=== PATIENT | female | born 1965 | race Caucasian/White ===

== ENCOUNTER 2020-02-02 10:43 | Outpatient (REF) | payer MEDICARE, MEDICAID, SELFPAY ==
[2020-02-02 12:11] LABS: Neut%MD 66.4 %; Neutrophils Absolute Auto 5.4 X10*3/uL (2.0-8.3); WBCANC 8.2 X10*3/uL; White Blood Count 8.2 X10*3/uL (4.8-10.8)
[2020-02-02 12:25] LABS: Blood Urea Nitrogen 6 mg/dL (9-16); Estimated Glomerular Filt Rate > 60
[2020-02-02 12:35] LABS: Estimated Average Glucose 171 mg/dL; Hemoglobin A1c % 7.6 %
[2020-02-02 12:47] LABS: Thyroid Stimulating Hormone 1.64 mIU/mL (0.32-4.0)
== END 2020-02-02 10:44 | disposition home or self-care (01) ==
LOC: HO.LABR 10:43
PROVIDERS: PCP Internal Medicine; Visit Provider Clinical Nurse Specialist Psychiatric/Mental Health
DX: Z79.899 Other long term (current) drug therapy (principal)
CPT/HCPCS: 36415; 80178; 82565; 83036; 84443; 84520

== ENCOUNTER 2020-02-28 12:12 | Outpatient (REF) | payer MEDICARE, MEDICAID, SELFPAY ==
[2020-02-28 13:18] LABS: Neut%MD 59.9 %; Neutrophils Absolute Auto 5.5 X10*3/uL (2.0-8.3); White Blood Count 9.1 X10*3/uL (4.8-10.8)
== END 2020-02-28 12:13 | disposition home or self-care (01) ==
LOC: HO.LABR 12:12
PROVIDERS: PCP Internal Medicine; Visit Provider Clinical Nurse Specialist Psychiatric/Mental Health
DX: Z79.899 Other long term (current) drug therapy (principal)
CPT/HCPCS: 36415

== ENCOUNTER 2020-04-22 11:55 | Outpatient (REF) | payer MEDICARE, SELFPAY ==
[2020-04-22 13:16] LABS: Neut%MD 64.5 %; Neutrophils Absolute Auto 6.5 X10*3/uL (2.0-8.3)
== END 2020-04-22 11:56 | disposition home or self-care (01) ==
LOC: HO.LABR 11:55
PROVIDERS: PCP Internal Medicine; Visit Provider Clinical Nurse Specialist Psychiatric/Mental Health
DX: Z79.899 Other long term (current) drug therapy (principal)
CPT/HCPCS: 36415; 85048

== ENCOUNTER 2020-05-28 11:55 | Outpatient (REF) | payer MEDICARE, SELFPAY ==
[2020-05-28 12:48] LABS: Blood Urea Nitrogen 7 mg/dL (9-16); Estimated Glomerular Filt Rate > 60
[2020-05-28 12:50] LABS: Neut%MD 62.5 %; WBCANC 9.6 X10*3/uL; White Blood Count 9.6 X10*3/uL (4.8-10.8)
[2020-05-28 12:55] LABS: Lithium 0.23 mmol/L (0.60-1.20)
[2020-05-28 13:10] LABS: Thyroid Stimulating Hormone 1.77 uIU/mL (0.32-4.0)
[2020-05-28 13:13] LABS: Estimated Average Glucose 197 mg/dL; Hemoglobin A1c % 8.5 %
== END 2020-05-28 11:56 | disposition home or self-care (01) ==
LOC: HO.LABR 11:55
PROVIDERS: PCP Internal Medicine; Visit Provider Clinical Nurse Specialist Psychiatric/Mental Health
DX: Z79.899 Other long term (current) drug therapy (principal)
CPT/HCPCS: 36415; 80178; 82565; 83036; 84443; 84520; 85048

== ENCOUNTER 2020-07-05 12:26 | Outpatient (REF) | payer MEDICARE, SELFPAY ==
[2020-07-05 13:22] LABS: Neutrophils Absolute Auto 5.7 X10*3/uL (2.0-8.3); WBCANC 9.4 X10*3/uL; White Blood Count 9.4 X10*3/uL (4.8-10.8)
== END 2020-07-05 12:27 | disposition home or self-care (01) ==
LOC: HO.LABR 12:26
PROVIDERS: PCP Internal Medicine; Visit Provider Clinical Nurse Specialist Psychiatric/Mental Health
DX: Z79.899 Other long term (current) drug therapy (principal)
CPT/HCPCS: 36415; 85048

== ENCOUNTER 2020-07-31 12:57 | Outpatient (REF) | payer MEDICARE, SELFPAY ==
[2020-07-31 13:36] LABS: Neut%MD 63.1 %; Neutrophils Absolute Auto 6.1 X10*3/uL (2.0-8.3); WBCANC 9.7 X10*3/uL; White Blood Count 9.7 X10*3/uL (4.8-10.8)
== END 2020-07-31 12:58 | disposition home or self-care (01) ==
LOC: HO.LABR 12:57
PROVIDERS: PCP Internal Medicine; Visit Provider Clinical Nurse Specialist Psychiatric/Mental Health
DX: Z79.899 Other long term (current) drug therapy (principal)
CPT/HCPCS: 36415; 85048

== ENCOUNTER 2020-11-06 13:52 | Outpatient (REF) | payer MEDICARE, SELFPAY ==
[2020-11-09 18:56] LABS: TS Negative Control Passed; TS Panel A 0; TS Panel B 1; TS Positive Control Passed; TSpotTB Negative (SeeBelow)
== END 2020-11-06 13:53 | disposition home or self-care (01) ==
LOC: HO.LAB 13:52
PROVIDERS: PCP Internal Medicine; Visit Provider Internal Medicine
DX: Z11.1 Encounter for screening for respiratory tuberculosis (principal)
CPT/HCPCS: 36415; 86481

== ENCOUNTER 2020-11-22 02:04 | Inpatient (IN) | payer MEDICARE, MEDICAID, SELFPAY ==
[2020-11-22] VITALS (7 sets, daily range): BP systolic 148–205; BP diastolic 68–91; PULSE 64–102; RESP 16–18; TEMP 36.4–37.1; O2SAT 95–99; BMI 34.4
--- NOTE | 2020-11-22 | ECG_ITS ---
Test Reason : CHECK CARDIAC HISTOR Blood Pressure : / mmHG Vent. Rate : 071 BPM Atrial Rate : 071 BPM P-R Int : 156 ms QRS Dur : 076 ms QT Int : 398 ms P-R-T Axes : 038 -07 017 degrees QTc Int : 432 ms Normal sinus rhythm Normal ECG When compared with ECG of 27-JUN-2012 22:00, Nonspecific T wave abnormality no longer evident in Anterolateral leads Referred By: Pao Ramirez Electronically Signed By:MARGAUX MARTINEZ
--- NOTE | 2020-11-22 02:58 | ED.PSYCH ---
HPI - Psych General Chief Complaint: Psychiatric Symptoms Stated Complaint: psych Time Seen by Provider: 11/22/20 02:58 Source: patient and other Mode of arrival: ambulatory History of Present Illness HPI Narrative: This is a 55-year-old female who is brought in by her sister after behavioral clinician called reported the patient was assessed in the community and found that the patient was paranoid delusional secondary to being off of her medication. Patient states that she does not feel right, but denies feeling suicidal or homicidal. Otherwise, patient denies any fever, chills, shortness of breath or chest pain. Related Data Home Medications Medication Instructions Recorded Confirmed lisinopril 10 mg tablet 1 tab PO QAM 11/22/20 11/22/20 olanzapine 5 mg tablet 1 tab PO BEDTIME 11/22/20 11/22/20 Allergies Allergy/AdvReac Type Severity Reaction Status Date / Time No Known Allergies Allergy Unverified 01/11/20 16:04 [No Known Allergies*] Review of Systems Review of Systems: Pertinent positives and negatives as stated in HPI 10 point review systems otherwise negative. [facility] Past Medical History Source: nursing notes reviewed Social History Social History Advance Directives: No Patient : No Physical Exam Vital Signs: Vital Signs: Last Vital Signs Temp 98.8 F 11/22/20 02:14 Pulse 102 H 11/22/20 02:14 Resp 18 11/22/20 02:14 BP 150/89 H 11/22/20 02:14 Pulse Ox 97 11/22/20 02:14 Body Mass Index 34.4 VITAL SIGNS: Reviewed. GENERAL: Well developed, well nourished, in no acute distress. HEAD: Normocephalic/atraumatic EYES: PERRLA, EOMI OROPHARYNX: no oral lesions noted, posterior pharynx clear LUNGS: Normal breath sounds. No adventitious sounds or accessory muscle use. SpO2<97> CARDIOVASCULAR: Regular rate and rhythm without noted murmurs ABDOMEN: Soft, non-tender, non-distended with bowel sounds. SKIN: Inspection of the skin reveals no rashes NEUROLOGIC: Alert and oriented x 4. Strength and sensation to light touch were grossly intact x 4. PSYCH: Depressed affect Course Course Course Narrative: 55-year-old female with history and clinical presentation on review of collateral information provided by the sister who states that patient's mental status changed after recent medication change by her psychiatrist. The sister of the patient does not recall the new medication but knows that they discontinued lithium and Clozaril. On review of all investigations patient is noted to have a UTI and received initial antibiotics here in the emergency room is otherwise medically cleared for further evaluation by the behavioral team. Reevaluation(s) Reevaluation #1: Patient placed in physician observation because the patient needed more time for evaluation by the behavioral team. At the time observation was started the patient's vital signs were stable, patient is alert and oriented, neuro: Nonfocal, CV RRR, lungs clear Time: 04:34 MDM - Psych Lab Data Result diagrams: 11/22/20 03:15 11/22/20 03:15 Labs: Lab Results 11/22/20 11/22/20 11/22/20 Range/Units 02:42 02:42 02:42 WBC (4.8-10.8) X10*3/uL RBC (4.20-5.50) X10*6/uL Hgb (12.0-16.0) g/dl Hct (37-47) % MCV (80-98) fL MCH (27.0-33.0) pg MCHC (31.0-35.0) g/dl RDW (11.0-16.0) % Plt Count (160-400) X10*3/uL MPV (9.4-12.3) fL Immature Gran % (Auto) (0.0-0.4) % Neut % (Auto) (45-73) % Lymph % (Auto) (20-40) % [place] % (Auto) (2-11) % Eos % (Auto) (0-4) % Baso % (Auto) (0-2) % Lymph # (Auto) (1.2-4.9) X10*3/uL [place] # (Auto) (0.1-1.2) X10*3/uL Eos # (Auto) (0.0-0.4) X10*3/uL Baso # (Auto) (0.0-0.2) X10*3/uL Abs Immat Gran (auto) (0.00-0.03) X10*3/uL Absolute Neuts (auto) (2.0-8.3) X10*3/uL Absolute Nucleated RBC (0.0-0.012) X10*3/uL Nucleated RBC % (auto) (0.0-0.2) /100WBC Sodium (135-145) mmol/L Potassium (3.3-5.1) mmol/L Chloride (96-108) mmol/L Carbon Dioxide (22-29) mmol/L Anion Gap (12-20) BUN (9-16) mg/dL Creatinine (0.5-1.4) mg/dL Estim Creat Clear Calc Estimated GFR Random Glucose (60-115) mg/dL Calcium (8.4-10.2) mg/dL Urine Color STRAW Urine Appearance HAZY Urine pH 5.5 (5.0-8.0) Ur Specific [place] <= 1.005 (1.005-1.025) Urine Protein TRACE (NEG-TRACE) MG/DL Urine Glucose (UA) 500 H (NEG) MG/DL Urine Ketones 40 (NEG) MG/DL Urine Blood NEG (NEG) Urine Nitrite NEG (NEG) Ur Leukocyte Esterase 2+ H (NEG) Urine RBC 0 (0) /HPF Urine WBC 5-9 H (0-4) /HPF Urine WBC Clumps NOTED Ur Squamous Epith Cells 3+ /LPF Urine Bacteria TRACE /LPF Urine Mucus TRACE /LPF Urine Opiates Screen Not Detected (Not Detect) Ur Barbiturates Screen Not Detected (Not Detect) Ur Phencyclidine Scrn Not Detected (Not Detect) Ur Amphetamines Screen Not Detected (Not Detect) U Benzodiazepines Scrn Not Detected (Not Detect) [place] (0.60-1.20) mmol/L Urine Cocaine Screen Not Detected (Not Detect) U Marijuana (THC) Screen Not Detected (Not Detect) COVID-19 (MY) Negative (Negative) COVID-19 Clin Com See Note 11/22/20 11/22/20 11/22/20 Range/Units 03:15 03:15 03:15 WBC 11.4 H (4.8-10.8) X10*3/uL RBC 4.78 (4.20-5.50) X10*6/uL Hgb 12.8 (12.0-16.0) g/dl Hct 39.8 (37-47) % MCV 83.3 (80-98) fL MCH 26.8 L (27.0-33.0) pg MCHC 32.2 (31.0-35.0) g/dl RDW 13.5 (11.0-16.0) % Plt Count 298 (160-400) X10*3/uL MPV 9.5 (9.4-12.3) fL Immature Gran % (Auto) 0.5 H (0.0-0.4) % Neut % (Auto) 81.4 H (45-73) % Lymph % (Auto) 13.6 L (20-40) % [place] % (Auto) 3.9 (2-11) % Eos % (Auto) 0.3 (0-4) % Baso % (Auto) 0.3 (0-2) % Lymph # (Auto) 1.6 (1.2-4.9) X10*3/uL [place] # (Auto) 0.5 (0.1-1.2) X10*3/uL Eos # (Auto) 0.0 (0.0-0.4) X10*3/uL Baso # (Auto) 0.0 (0.0-0.2) X10*3/uL Abs Immat Gran (auto) 0.06 H (0.00-0.03) X10*3/uL Absolute Neuts (auto) 9.3 H (2.0-8.3) X10*3/uL Absolute Nucleated RBC 0.000 (0.0-0.012) X10*3/uL Nucleated RBC % (auto) 0.0 (0.0-0.2) /100WBC Sodium 139 (135-145) mmol/L Potassium 4.3 (3.3-5.1) mmol/L Chloride 106 (96-108) mmol/L Carbon Dioxide 22 (22-29) mmol/L Anion Gap 15 (12-20) BUN 5 L (9-16) mg/dL Creatinine 0.76 (0.5-1.4) mg/dL Estim Creat Clear Calc 102.7 Estimated GFR > 60 Random Glucose 280 H (60-115) mg/dL Calcium 10.0 (8.4-10.2) mg/dL Urine Color Urine Appearance Urine pH (5.0-8.0) Ur Specific [place] (1.005-1.025) Urine Protein (NEG-TRACE) MG/DL Urine Glucose (UA) (NEG) MG/DL Urine Ketones (NEG) MG/DL Urine Blood (NEG) Urine Nitrite (NEG) Ur Leukocyte Esterase (NEG) Urine RBC (0) /HPF Urine WBC (0-4) /HPF Urine WBC Clumps Ur Squamous Epith Cells /LPF Urine Bacteria /LPF Urine Mucus /LPF Urine Opiates Screen (Not Detect) Ur Barbiturates Screen (Not Detect) Ur Phencyclidine Scrn (Not Detect) Ur Amphetamines Screen (Not Detect) U Benzodiazepines Scrn (Not Detect) [place] < 0.10 L (0.60-1.20) mmol/L Urine Cocaine Screen (Not Detect) U Marijuana (THC) Screen (Not Detect) COVID-19 (YM) (Negative) COVID-19 Clin Com Discharge Plan Discharge Prescriptions: No Action olanzapine 5 mg tablet 1 tab PO BEDTIME RF: 0 lisinopril 10 mg tablet 1 tab PO QAM RF: 0
[2020-11-22 03:11] LABS: Glucose Urine UA 500 MG/DL (NEG); Leukocyte Esterase Urine 2+ (NEG); Nitrite Urine NEG (NEG); PH 5.5 (5.0-8.0); Specific Gravity - Urine <= 1.005 (1.005-1.025); UACC Culture Trigger YES; Urine Blood NEG (NEG); Urine Ketones 40 MG/DL (NEG); Urine Protein TRACE MG/DL (NEG-TRACE)
[2020-11-22 03:14] LABS: Appearance Urine HAZY; Color Urine STRAW
[2020-11-22 03:19] LABS: MANUAL DIFF FLAG NO
[2020-11-22 03:24] LABS: COVID-19 Test Negative (Negative)
[2020-11-22 03:25] LABS: Bacteria Urine TRACE /LPF; Mucus Urine TRACE /LPF; RBC Urine 0 /HPF (0); Squamous Epithelial Cell Urine 3+ /LPF; UACC CULT YES; WBC Clumps Urine NOTED
[2020-11-22 03:28] LABS: Basophils Percent Auto 0.3 % (0-2); Eosinophils Percent Auto 0.3 % (0-4); Hematocrit 39.8 % (37-47); Hemoglobin 12.8 g/dl (12.0-16.0); Imm Gran Abs Auto 0.06 X10*3/uL (0.00-0.03); Imm Gran Pct Auto 0.5 % (0.0-0.4); Lymphocytes Absolute Auto 1.6 X10*3/uL (1.2-4.9); Lymphocytes Percent Auto 13.6 % (20-40); Mean Corpuscular HGB Conc 32.2 g/dl (31.0-35.0); Mean Corpuscular Hemoglobin 26.8 pg (27.0-33.0); Mean Corpuscular Volume 83.3 fL (80-98); Mean Platelet Volume 9.5 fL (9.4-12.3); Monocytes Absolute Auto 0.5 X10*3/uL (0.1-1.2); Monocytes Percent Auto 3.9 % (2-11); Neutrophils Absolute Auto 9.3 X10*3/uL (2.0-8.3); Neutrophils Percent Auto 81.4 % (45-73); Platelet Count 298 X10*3/uL (160-400); Red Blood Count 4.78 X10*6/uL (4.20-5.50); Red Cell Distribution Width 13.5 % (11.0-16.0); White Blood Count 11.4 X10*3/uL (4.8-10.8)
[2020-11-22 03:31] LABS: Amphetamine Screen Urine Not Detected (Not Detect); Barbiturates, Urine Not Detected (Not Detect); Benzodiazepines Screen Urine Not Detected (Not Detect); Cannabinoid Screen Urine Not Detected (Not Detect); Cocaine Screen Urine Not Detected (Not Detect); Opiate Screen Urine Not Detected (Not Detect); Phencyclidine Screen Urine Not Detected (Not Detect)
[2020-11-22 03:41] LABS: Lithium < 0.10 mmol/L (0.60-1.20)
[2020-11-22 03:45] LABS: Anion Gap 15 (12-20); Blood Urea Nitrogen 5 mg/dL (9-16); Carbon Dioxide 22 mmol/L (22-29); Chloride 106 mmol/L (96-108); Creatinine Clr Calc Pharmacy 102.7; Estimated Glomerular Filt Rate > 60; Glucose Random 280 mg/dL (60-115); Potassium 4.3 mmol/L (3.3-5.1); Sodium 139 mmol/L (135-145)
[2020-11-22] MEDS: LORazepam 1 MG TABLET PO (05:22)
[2020-11-22] MEDS: cephALEXin 500 MG CAPSULE PO (05:25)
--- NOTE | 2020-11-22 05:30 | PC.NURSE ---
Patient reported she is feeling scared and restless, agreed to take take Ativan to calm her tracing thought, provider notified/ordered Ativan 1 mg, administered with Keflex, patient very suspicious wanted to her medication opened in front of her, slowly and suspiciously took her medication, pending medication effect, will continue to monitor.
--- NOTE | 2020-11-22 07:01 | PC.NURSE ---
patient appears to be resting in room nibbling on breakfast small amounts patient appears in no distress.
[2020-11-22 09:52] LABS: Estimated Average Glucose 237 mg/dL; Hemoglobin A1c % 9.9 %
--- NOTE | 2020-11-22 13:51 | PM.PSYCN ---
History of Present Illness Date of Service: 11/22/20 Chief Complaint: I could not sleep Reason for Consult: 55 yo female to ER with family after being unable to sleep for a few nights she reports. Hx bipolar disorder, mixed; schizoaffective disorder, bipolar type. and HTN. [place] [facility] Pt states she has been on Clozaril /Lafitte combination for over 20 years. She stopped Lafitte about 4 months ago (hx 600 mg HS) and stopped Clozaril 2-3 weeks ago, replacing this with Olanzapine. Reports she has been somewhat hypersensitive to sounds, they say paranoid and reports has had increasing difficulty with her sleep, losing hours progressively. Last evening pt's partner informed her sister of symptoms and sister assisted pt to the ER for evaluation. Pt had taken HS Olanzapine prior to ER visit. She reports 3 hours sleep 11/20- and 6 hours sleep with Lorazepam addition last night. Reports the decision to change medicine was due to the labor intensity of having labs, level managment and I wanted something that was simple for me so it would not interfere with my life. 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 Pt looking to have more time in her life for activity and family. Discussed titration of Olanzapine vs return to Clozaril. Pt reports she prefers to return to Clozaril and make adjustments to continue diagnostics and meet requirements to continue medication which has worked in the past. Reviewed with CARE Team-pt has been seen by [facility] and is pending [place] [facility] [place] eval is not accessable at the current time. Requesting physician: Hanna Moura Discussed with referring provider: No Sources of Information: patient interviewed, chart reviewed and crisis/core team assessment reviewed (not available) HPI Narrative: Pt reports a history of the use of Lafitte and Clozaril for ~ 20 years Past Psychiatric History: IP: Three admits- 10 years ago [place] [facility] [place] [place] 20 years ago to a few hospitals in [place] (was transferred a few times) OP Psychopharm: Dieter López APRN Medical Evaluation Reviewed: Yes WBC 11.4; BUN 5; Random Glucose 280; Urine Glucose 500; Leuk Esterase 2+, Urine WBC 5-9, [place] 0.10, Urine Tox-, Covid - Personal & Social History: Lives with partner. One son, , age 33, who was a Marine- pt sees the couple approximately every two months [facility] Medical History (Updated 11/22/20 @ 14:25 by Cely Fowler APRN) Schizoaffective disorder, bipolar type Narrative: Denies. Reports she has been attempting to lose weight. Substance History: Nicotine 1-2 cigarettes per week- It helps me to relax . Diagnostics Vital Signs (24Hr): Vital Signs - 24 hr 11/22/20 02:14 11/22/20 11:39 Temperature 98.8 F 97.5 F Pulse Rate 102 H 68 Respiratory Rate 18 16 Blood Pressure 150/89 H 148/68 H Pulse Oximetry 97 95 Body Mass Index 34.4 Labs Results: 11/22/20 03:15 11/22/20 03:15 Labs: Laboratory Results - last 48 hr 11/22/20 11/22/20 11/22/20 02:42 02:42 02:42 WBC RBC Hgb Hct MCV MCH MCHC RDW Plt Count MPV Immature Gran % (Auto) Neut % (Auto) Lymph % (Auto) [place] % (Auto) Eos % (Auto) Baso % (Auto) Lymph # (Auto) [place] # (Auto) Eos # (Auto) Baso # (Auto) Abs Immat Gran (auto) Absolute Neuts (auto) Absolute Nucleated RBC Nucleated RBC % (auto) Sodium Potassium Chloride Carbon Dioxide Anion Gap BUN Creatinine Estim Creat Clear Calc Estimated GFR Random Glucose Estimat Average Glucose Hemoglobin A1c % Calcium Urine Color STRAW Urine Appearance HAZY Urine pH 5.5 Ur Specific [place] <= 1.005 Urine Protein TRACE Urine Glucose (UA) 500 H Urine Ketones 40 Urine Blood NEG Urine Nitrite NEG Ur Leukocyte Esterase 2+ H Urine RBC 0 Urine WBC 5-9 H Urine WBC Clumps NOTED Ur Squamous Epith Cells 3+ Urine Bacteria TRACE Urine Mucus TRACE Urine Opiates Screen Not Detected Ur Barbiturates Screen Not Detected Ur Phencyclidine Scrn Not Detected Ur Amphetamines Screen Not Detected U Benzodiazepines Scrn Not Detected [place] Urine Cocaine Screen Not Detected U Marijuana (THC) Screen Not Detected COVID-19 (MY) Negative COVID-19 Clin Com See Note 11/22/20 11/22/20 11/22/20 03:15 03:15 03:15 WBC 11.4 H RBC 4.78 Hgb 12.8 Hct 39.8 MCV 83.3 MCH 26.8 L MCHC 32.2 RDW 13.5 Plt Count 298 MPV 9.5 Immature Gran % (Auto) 0.5 H Neut % (Auto) 81.4 H Lymph % (Auto) 13.6 L [place] % (Auto) 3.9 Eos % (Auto) 0.3 Baso % (Auto) 0.3 Lymph # (Auto) 1.6 [place] # (Auto) 0.5 Eos # (Auto) 0.0 Baso # (Auto) 0.0 Abs Immat Gran (auto) 0.06 H Absolute Neuts (auto) 9.3 H Absolute Nucleated RBC 0.000 Nucleated RBC % (auto) 0.0 Sodium 139 Potassium 4.3 Chloride 106 Carbon Dioxide 22 Anion Gap 15 BUN 5 L Creatinine 0.76 Estim Creat Clear Calc 102.7 Estimated GFR > 60 Random Glucose 280 H Estimat Average Glucose Hemoglobin A1c % Calcium 10.0 Urine Color Urine Appearance Urine pH Ur Specific [place] Urine Protein Urine Glucose (UA) Urine Ketones Urine Blood Urine Nitrite Ur Leukocyte Esterase Urine RBC Urine WBC Urine WBC Clumps Ur Squamous Epith Cells Urine Bacteria Urine Mucus Urine Opiates Screen Ur Barbiturates Screen Ur Phencyclidine Scrn Ur Amphetamines Screen U Benzodiazepines Scrn [place] < 0.10 L Urine Cocaine Screen U Marijuana (THC) Screen COVID-19 (MY) COVID-19 Clin Com 11/22/20 03:15 WBC RBC Hgb Hct MCV MCH MCHC RDW Plt Count MPV Immature Gran % (Auto) Neut % (Auto) Lymph % (Auto) [place] % (Auto) Eos % (Auto) Baso % (Auto) Lymph # (Auto) [place] # (Auto) Eos # (Auto) Baso # (Auto) Abs Immat Gran (auto) Absolute Neuts (auto) Absolute Nucleated RBC Nucleated RBC % (auto) Sodium Potassium Chloride Carbon Dioxide Anion Gap BUN Creatinine Estim Creat Clear Calc Estimated GFR Random Glucose Estimat Average Glucose 237 Hemoglobin A1c % 9.9 Calcium Urine Color Urine Appearance Urine pH Ur Specific [place] Urine Protein Urine Glucose (UA) Urine Ketones Urine Blood Urine Nitrite Ur Leukocyte Esterase Urine RBC Urine WBC Urine WBC Clumps Ur Squamous Epith Cells Urine Bacteria Urine Mucus Urine Opiates Screen Ur Barbiturates Screen Ur Phencyclidine Scrn Ur Amphetamines Screen U Benzodiazepines Scrn [place] Urine Cocaine Screen U Marijuana (THC) Screen COVID-19 (MY) COVID-19 Clin Com Mental Status Exam Mental Status Exam Patient Appearance: Appropriate Patient Orientation: Person, Place, Time and Situation Level of Consciousness: Alert Patient Behavior: Appropriate, Talkative, Cooperative and Good Eye Contact Mood Description: Withdrawn, Depressed, Anxious and Apprehensive Affect Description: Flat Patient Cognition Impaired: No Ability to Follow Directions: Good Speech Pattern: Spontaneous Speech Memory Description: Intact Hallucinations: None (denies) Delusions: Not Present (denies/no evidence of during our meeting) Thought Process: Distracted Thought Content: positive for [place]ila, positive for Circumstantial, positive for Tangential, positive for Suicidal Ideation (denies) and positive for Homicidal Ideation (denies) Depressive Symptoms: Insomnia, Diff. Making Decisions, Difficulty Sleeping, Hopelessness, Isolating-Friends/Family, Thoughts of /Suicide (denies) and Difficulty Concentrating Judgement: Fair Medications Medications Current Medications Generic Name Dose Route Start Last Admin Trade Name Freq PRN Reason Stop Dose Admin Acetaminophen 650 mg 11/22/20 12:41 Acetaminophen 325 Mg Tablet PO Q6H PRN Headache/Pain Mild Scale (1-3) Al Hydroxide/Mg Hydroxide 30 ml 11/22/20 12:41 Magnesium Hydrox/Alum Hydrox 30 Ml Oral.Susp PO Q6H PRN Heartburn/Nausea Hydroxyzine HCl 25 mg 11/22/20 12:41 Hydroxyzine Hcl 25 Mg Tablet PO Q6H PRN Anxiety Magnesium Hydroxide 30 ml 11/22/20 12:41 Milk Of Magnesia 30 Ml Oral.Susp PO DAILY PRN Constipation Trazodone HCl 50 mg 11/22/20 12:41 Trazodone Hcl 50 Mg Tablet PO BEDTIME PRN Insomnia Allergies Allergies Allergy/AdvReac Type Severity Reaction Status Date / Time No Known Allergies Allergy Unverified 01/11/20 16:04 [No Known Allergies*] Assessment & Plan Assessment & Plan (1) Schizoaffective disorder, bipolar type: Status: Acute Code(s): F25.0 - Schizoaffective disorder, bipolar type Recommendations: -Pt is pending admission to . -In discussion with her about medications, she spoke of wanting to return to [facility] as she would rather take time to have required diagnostics for appropriate use of this medication vs symptoms she has experienced since changes were made. Recommendations[place] [facility] [place]. Greater than 50% of the session was spent on counseling and/or coordination of care Patient educated on: medication risk/benefits and therapeutic strategies Guardian/Caregiver educated on: medication risk/benefits and therapeutic strategies Informed Consent: understands and further education needed
--- NOTE | 2020-11-22 15:44 | PC.NURSE ---
Admission Note 55 y/o sylvia admitted from [facility] after her sister reported her as paranoid, delusional and not sleeping. Precipitant is pt had stopped her meds 5 days ago cold turkey Pt reports she has been on Clozaril for 20 years and I got tired of coming to the hospital for bloodwork. Pt is cooperative with admission process but very hesitant and paranoid. Pt denies any SI/HI and has no history of restraints/violence. Pt has outpatient psychiatrist, therapist and has not had an inpatient admission for 10 years.
[2020-11-22] MEDS: OLANZapine 5 MG TABLET PO ×2 (16:05→22:05)
--- NOTE | 2020-11-22 16:29 | MHC.CLN ---
NUTRITION/DIET RD RECOMMENDS DIET CHANGE TO DIABETIC 1800 KCAL (25.4 KCAL/KG CMW). 11/22 A1c=9.9; RANDOM [id number]. PATIENT HAS ORDER FOR POC GLUCOSE CHECKS. DOES NOT TAKE DM MEDICATIONS. THERAPEUTIC DIET TO HELP CONTROL BLOOD SUGARS.
--- NOTE | 2020-11-22 22:36 | PC.NURSE ---
refused HS POC
[2020-11-23 08:00] VITALS: BP 185/88; PULSE 78; RESP 18; TEMP 36.7; O2SAT 97
[2020-11-23 08:23] VITALS: BP 185/88; PULSE 78
[2020-11-23 10:24] LABS: Glucose, Whole Blood 255 mg/dL (60-115)
[2020-11-23 15:14] VITALS: BP 138/73; PULSE 72
[2020-11-23 18:00] VITALS: TEMP 36.7
[2020-11-23] MEDS: cloZAPine 25 MG TABLET 12.5 MG PO (20:38)
--- NOTE | 2020-11-23 21:28 | CONS_ITS ---
DATE OF SERVICE: 11/23/2020 CONSULTING PHYSICIAN: Cely Damico APRN REASON FOR CONSULTATION: Medical management for diabetes, hypertension, and possible UTI. HISTORY OF PRESENTING ILLNESS: This is a 55-year-old female patient with past medical history of bipolar disorder, schizoaffective disorder, and hypertension, previously on Clozaril and lithium. Patient has stopped taking her medications several weeks ago and was brought into [facility] due to increasing difficulty with sleep and difficulty coping at home; therefore, patient admitted to psych facility. The patient was noted to have elevated blood pressure as high as up to systolic BP 205/88. She was also noted to have blood sugars in 200 range with a hemoglobin A1c of 9.9. Her urinalysis was positive for rbc, 5 to 9 wbc count, and trace bacteria. Urine culture is positive for greater than 100,000 Staph species. At the present time, the patient is not providing any meaningful history. She keeps saying that nobody is letting her out of this place. She feels that the system is wrong, someone who invented world will take over and the world will change. She feels that it was hard for her to come here since she was feeling bad, she was not sleeping well. She wants to go home, but when she is directable, she says that she has no nausea, no vomiting. She denies urinary symptoms. She is not aware of the diagnosis of diabetes. She denies excessive thirst, polyuria, or abdominal pain. PAST MEDICAL HISTORY: Significant for schizoaffective disorder/bipolar disorder/hypertension. SOCIAL HISTORY: The patient smokes 1 to 2 cigarettes per week since she feels it helps her to relax. She denies illicit drug use. She denies alcohol abuse. 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 ALLERGIES: SHE HAS NO KNOWN DRUG ALLERGIES. MEDICATIONS: At home were lisinopril 1 tablet daily, olanzapine 1 tablet at bedtime. FAMILY HISTORY: Her mother at 69, question related to some viral illness. Father at age 76, he did not feel good. REVIEW OF SYSTEMS: APPLICATION INTEGRATION SPECIALIST: denies any headache or dizziness. CVS: denies chest pain or palpitation. GI: denies nausea or vomiting . : denies urinary symptoms. LABORATORY DATA: Showed a hemoglobin A1c of 9.9. WBC 11.4, hematocrit 39.8, platelet count of 298. Urine toxicology screen is negative. [place] level is low 0.10. Her electrolytes are stable, creatinine is 0.76, blood sugar 255, average estimated glucose is 237, calcium is 10. IMAGING STUDIES: None obtained. EKG showed no ischemic changes. No acute abnormality. PHYSICAL EXAMINATION: GENERAL: The patient is resting comfortably, sitting on a chair. NECK: Supple. LUNGS: Clear to auscultation bilaterally. HEART: Regular rate and rhythm. ABDOMEN: Soft. EXTREMITIES: Without edema. NEUROLOGIC: Nonfocal. She has a steady gait. Face is symmetrical. Cranial nerves II to XII intact. ASSESSMENT AND PLAN: A 55-year-old female patient admitted to psychiatric facility with underlying history of schizoaffective disorder and bipolar disorder. Consult is obtained for management of hypertension, diabetes, and possible urinary tract infection. PROBLEM LIST: 1. New onset diabetes mellitus. The patient is not aware that she is a diabetic. She is not on oral hypoglycemic agents. Since the patient has significantly elevated hemoglobin A1c and has elevated average blood glucose level in 200, we will place the patient on metformin, glipizide 5 mg daily, and place her on insulin sliding scale and diabetic diet. Once the patient is more stabilized, she can have a nutrition consultation. We will check point of care blood sugar q.i.d. 2. Hypertension, uncontrolled. The patient is on lisinopril 10 mg daily. We will increase dose to 20 mg daily. If blood pressure persistently remained elevated, we will further adjust medications. Likely elevated BP due to anxiety. 3. Possible urinary tract infection. The patient's urinalysis shows only trace bacteria and 5 to 9 wbc's. The patient is asymptomatic. We will await final urine culture report. Meanwhile, we will continue Keflex 500 t.i.d. and follow clinical course. 4. Deep vein thrombosis prophylaxis. Low risk since patient is ambulatory. Thank you for allowing us to participate in the care of this patient. We will continue to follow the patient along with you. MD ALFONZO Doe/MEY / [id number] MTDD
--- NOTE | 2020-11-23 22:55 | P.HPPS_ITS ---
HPI Chief Complaint: I could not sleep Sources of Information: patient interviewed, chart reviewed and crisis/core team assessment reviewed HPI Subjective Notes: Conditional Voluntary Medical Problems Affecting Mental Status: No Narrative: Sources of Information: patient interviewed, chart reviewed, discussed with team on -3 Information for admission is pulled from the psychiatry consult that was done yesterday. This was reviewed. History confirmed after speaking with the patient. Patient is a 55 yo female to ER with family after being unable to sleep for a few nights she reports. Hx bipolar disorder, mixed; schizoaffective disorder, bipolar type. and HTN. Similiar presentation at [facility] in 2011 and 2012. Pt states she has been on Clozaril /Monon combination for over 20 years. She stopped Monon about 4 months ago (hx 600 mg HS) and stopped Clozaril 2-3 weeks ago, replacing this with Olanzapine. Patient reported to the psychiatry communication consultant that she has been somewhat hypersensitive to sounds, they say paranoid and reports has had increasing difficulty with her sleep, losing hours progressively. On 11/21/20 the pt's p artner informed her sister of symptoms and sister assisted pt to the ER for evaluation. Pt had taken HS Olanzapine prior to ER visit. She reports 3 hours sleep 11/20- and 6 hours sleep with Lorazepam addition last night. Reports the decision to change medicine was due to the labor intensity of having labs, level managment and I wanted something that was simple for me so it would not interfere with my life. 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 Pt looking to have more time in her life for activity and family. Pt reports she prefers to return to Clozaril and make adjustments to continue diagnostics and meet requi rements to continue medication which has worked in the past. Narrative: Pt reports a history of the use of Monon and Clozaril for ~ 20 years Past Psychiatric History: IP: Three admits- 10 years ago to [facility]; 20 years ago to a few hospitals in [place] (was transferred a few times) OP Psychopharm: Dieter López APRN Medical Evaluation Reviewed: Yes WBC 11.4; BUN 5; Random Glucose 280; Urine Glucose 500; Leuk Esterase 2+, Urine WBC 5-9, Monon 0.10, Urine Tox-, Covid - Personal & Social History: Lives with partner. One son, , age 33, who was a Marine- pt sees the couple approximately every two months [facility] Medical History?(Updated 11/22/20 @ 14:25 by Cely Fowler APRN) Schizoaffective disorder, bipolar type Narrative: Denies. Reports she has been attempting to lose weight. Substance History: Nicotine 1-2 cigarettes per week- It helps me to relax . Past Psychiatric History: IP: Three admits- 10 years ago to [facility]; 20 years ago to a few hospitals in [place] (was transferred a few times) OP Psychopharm: Dieter López APRN Medical Evaluation Reviewed: Yes [facility] Medical History (Updated 11/22/20 @ 14:25 by Cely Fowler APRN) Schizoaffective disorder, bipolar type Diagnostics Vital Signs (24Hr): Vital Signs - 24 hr 11/23/20 08:00 11/23/20 08:23 11/23/20 15:14 Temperature 98.0 F Pulse Rate 78 78 72 Respiratory Rate 18 Blood Pressure 185/88 H 185/88 H 138/73 Pulse Oximetry 97 11/23/20 18:00 Temperature 98.0 F Pulse Rate Respiratory Rate Blood Pressure Pulse Oximetry Body Mass Index 34.4 Labs Results: 11/22/20 03:15 11/22/20 03:15 Labs: Laboratory Results - last 48 hr 11/22/20 11/22/20 11/22/20 02:42 02:42 02:42 WBC RBC Hgb Hct MCV MCH MCHC RDW Plt Count MPV Immature Gran % (Auto) Neut % (Auto) Lymph % (Auto) Treasure % (Auto) Eos % (Auto) Baso % (Auto) Lymph # (Auto) [place] # (Auto) Eos # (Auto) Baso # (Auto) Abs Immat Gran (auto) Absolute Neuts (auto) Absolute Nucleated RBC Nucleated RBC % (auto) Sodium Potassium Chloride Carbon Dioxide Anion Gap BUN Creatinine Estim Creat Clear Calc Estimated GFR POC Glucose Random Glucose Estimat Average Glucose Hemoglobin A1c % Calcium Urine Color STRAW Urine Appearance HAZY Urine pH 5.5 Ur Specific [place] <= 1.005 Urine Protein TRACE Urine Glucose (UA) 500 H Urine Ketones 40 Urine Blood NEG Urine Nitrite NEG Ur Leukocyte Esterase 2+ H Urine RBC 0 Urine WBC 5-9 H Urine WBC Clumps NOTED Ur Squamous Epith Cells 3+ Urine Bacteria TRACE Urine Mucus TRACE Urine Opiates Screen Not Detected Ur Barbiturates Screen Not Detected Ur Phencyclidine Scrn Not Detected Ur Amphetamines Screen Not Detected U Benzodiazepines Scrn Not Detected Monon Urine Cocaine Screen Not Detected U Marijuana (THC) Screen Not Detected COVID-19 (MY) Negative COVID-19 Clin Com See Note 11/22/20 11/22/20 11/22/20 03:15 03:15 03:15 WBC 11.4 H RBC 4.78 Hgb 12.8 Hct 39.8 MCV 83.3 MCH 26.8 L MCHC 32.2 RDW 13.5 Plt Count 298 MPV 9.5 Immature Gran % (Auto) 0.5 H Neut % (Auto) 81.4 H Lymph % (Auto) 13.6 L Treasure % (Auto) 3.9 Eos % (Auto) 0.3 Baso % (Auto) 0.3 Lymph # (Auto) 1.6 Treasure # (Auto) 0.5 Eos # (Auto) 0.0 Baso # (Auto) 0.0 Abs Immat Gran (auto) 0.06 H Absolute Neuts (auto) 9.3 H Absolute Nucleated RBC 0.000 Nucleated RBC % (auto) 0.0 Sodium 139 Potassium 4.3 Chloride 106 Carbon Dioxide 22 Anion Gap 15 BUN 5 L Creatinine 0.76 Estim Creat Clear Calc 102.7 Estimated GFR > 60 POC Glucose Random Glucose 280 H Estimat Average Glucose Hemoglobin A1c % Calcium 10.0 Urine Color Urine Appearance Urine pH Ur Specific [place] Urine Protein Urine Glucose (UA) Urine Ketones Urine Blood Urine Nitrite Ur Leukocyte Esterase Urine RBC Urine WBC Urine WBC Clumps Ur Squamous Epith Cells Urine Bacteria Urine Mucus Urine Opiates Screen Ur Barbiturates Screen Ur Phencyclidine Scrn Ur Amphetamines Screen U Benzodiazepines Scrn Monon < 0.10 L Urine Cocaine Screen U Marijuana (THC) Screen COVID-19 (MY) COVID-19 Clin Com 11/22/20 11/23/20 03:15 09:39 WBC RBC Hgb Hct MCV MCH MCHC RDW Plt Count MPV Immature Gran % (Auto) Neut % (Auto) Lymph % (Auto) Treasure % (Auto) Eos % (Auto) Baso % (Auto) Lymph # (Auto) [place] # (Auto) Eos # (Auto) Baso # (Auto) Abs Immat Gran (auto) Absolute Neuts (auto) Absolute Nucleated RBC Nucleated RBC % (auto) Sodium Potassium Chloride Carbon Dioxide Anion Gap BUN Creatinine Estim Creat Clear Calc Estimated GFR POC Glucose 255 H Random Glucose Estimat Average Glucose 237 Hemoglobin A1c % 9.9 Calcium Urine Color Urine Appearance Urine pH Ur Specific [place] Urine Protein Urine Glucose (UA) Urine Ketones Urine Blood Urine Nitrite Ur Leukocyte Esterase Urine RBC Urine WBC Urine WBC Clumps Ur Squamous Epith Cells Urine Bacteria Urine Mucus Urine Opiates Screen Ur Barbiturates Screen Ur Phencyclidine Scrn Ur Amphetamines Screen U Benzodiazepines Scrn Monon Urine Cocaine Screen U Marijuana (THC) Screen COVID-19 (MY) COVID-19 Clin Com Meds/Allergies Meds Home Medications Acetaminophen (Acetaminophen 325 Mg Tablet) 650 mg PO Q6H PRN PRN Reason: Headache/Pain Mild Scale (1-3) Al Hydroxide/Mg Hydroxide (Magnesium Hydrox/Alum Hydrox 30 Ml Oral.Susp) 30 ml PO Q6H PRN PRN Reason: Heartburn/Nausea Cephalexin HCl (Cephalexin 500 Mg Capsule) 500 mg PO TID [facility] Last Admin: 11/23/20 21:23 Dose: Not Given Documented by: Clozapine (Clozapine 25 Mg Tablet) 12.5 mg PO BEDTIME [facility] Last Admin: 11/23/20 20:38 Dose: 12.5 mg Documented by: Glipizide (Glipizide Xl 5 Mg Tab.Er.24) 5 mg PO DAILY [facility] Last Admin: 11/23/20 15:15 Dose: Not Given Documented by: Hydroxyzine HCl (Hydroxyzine Hcl 25 Mg Tablet) 25 mg PO Q6H PRN PRN Reason: Anxiety Insulin Human Lispro (Insulin Lispro 100 Unit/Ml 3 Ml Vial) 0 unit SUBCUT QIDACHS [facility]; Protocol Last Admin: 11/23/20 21:33 Dose: Not Given Documented by: Lisinopril (Lisinopril 20 Mg Tablet) 20 mg PO DAILY [facility]; Protocol Lorazepam (Lorazepam 1 Mg Tablet) 1 mg PO Q4H PRN PRN Reason: Anxiety Magnesium Hydroxide (Milk Of Magnesia 30 Ml Oral.Susp) 30 ml PO DAILY PRN PRN Reason: Constipation Metformin HCl (Metformin Hcl 500 Mg Tablet) 500 mg PO BIDWM [facility] Last Admin: 11/23/20 18:47 Dose: Not Given Documented by: Olanzapine (Olanzapine 5 Mg Tablet) 5 mg PO TID PRN PRN Reason: Psychosis Trazodone HCl (Trazodone Hcl 50 Mg Tablet) 50 mg PO BEDTIME PRN PRN Reason: Insomnia Allergies Allergies Allergy/AdvReac Type Severity Reaction Status Date / Time No Known Allergies Allergy Unverified 01/11/20 16:04 [No Known Allergies*] Mental Status Exam Mental Status Exam Patient Appearance: Appropriate and Unkempt Patient Orientation: Person, Place, Time and Situation Level of Consciousness: Awake and Alert Patient Behavior: Guarded, Talkative, Cooperative, Suspicious, Restless, Anxious and Good Eye Contact (Somewhat intense) Mood Description: Anxious, Nervous and Apprehensive Affect Description: Constricted, Anxious and Flat Patient Cognition Impaired: No Ability to Follow Directions: Good Speech Pattern: Perseverating (On leaving), Spontaneous Speech, Rapid, Excessive and Pressured Memory Description: Intact Hallucinations: None (denied) Delusions: Paranoid Ideation Thought Process: Racing Thought Content: positive for Racing, positive for Circumstantial, positive for Perseveration and positive for Loose Associations Abnormal Motor Activity Signs and Symptoms: Restlessness Judgement: Fair (agreeing to treatment) Assessment & Plan Assessment & Plan (1) Schizoaffective disorder, bipolar type: Status: Acute Code(s): F25.0 - Schizoaffective disorder, bipolar type Assessment and Plan: - Admitted on a CV - DW patient restarting Clozaril. Will start patient on Clozaril 12.5 mg HS. Patient agrees with this plan as Clozapine has been helpful for her for many years. - Switch Zyprexa to PRN. - Consider restart Monon - Encourage milieu treatment. - Disposition planning - Would restrict to unit for now as patient continues psychotic and also has strong desire to leave. Elopement risk due to disorganized thinking and behavior. Reason for continued inpatient stay Substantial Risk for: inability to function and rapid decompensation
--- NOTE | 2020-11-24 22:31 | HO.PSYCHPN ---
Subjective Subjective Date of Service: 11/24/20 Reason For Visit: I could not sleep Subjective Notes: Conditional Voluntary and 3 Day Interim History: Patient seen. DW team. Patient signed a 3 day notice. Patient refusing Keflex and increase in Lisinopril recommended by hospitalist consult. She did agree to start Clozaril and took it last night. Her sister visited today. Sister relayed history to RN of patient being hospitalized in [place] after stopping her psychotropics. Prior to the hospitalization, the patient was involved in a police standoff and her sister was involved in a legal miguel. Patient believed she was going to be DC'd with her sister. Medication Compliance: Intermittent Attending Groups: No Review of Systems UTI and HTN not adhering to recommendations. Review of Systems Review of Systems Pertinent positives and negatives as stated in HPI 10 point review systems otherwise negative. Mental Status Exam Mental Status Exam Patient Appearance: Appropriate Patient Orientation: Person, Place, Time and Situation Level of Consciousness: Awake and Alert Patient Behavior: Guarded, Talkative, Cooperative, Suspicious, Restless, Anxious, Good Eye Contact (Somewhat intense) and Uncooperative Mood Description: Suspicious, Hostile, Anxious, Nervous and Apprehensive Affect Description: Constricted, Hostile, Anxious and Flat Patient Cognition Impaired: No Ability to Follow Directions: Fair Speech Pattern: Perseverating (On leaving), Spontaneous Speech, Rapid, Excessive and Pressured Memory Description: Intact Delusions: Paranoid Ideation and Grandiose Thought Process: Illogical and Evasive Thought Content: positive for Perseveration, positive for Tangential and positive for Disorganized Abnormal Motor Activity Signs and Symptoms: Agitation Judgement: Poor Diagnostics Vital Signs (24Hr): Body Mass Index 34.4 Labs Results: 11/22/20 03:15 11/22/20 03:15 Labs: Laboratory Results - last 48 hr 11/23/20 09:39 POC Glucose 255 H Medications Medications Current Medications Generic Name Dose Route Start Last Admin Trade Name Freq PRN Reason Stop Dose Admin Acetaminophen 650 mg 11/22/20 12:41 Acetaminophen 325 Mg Tablet PO Q6H PRN Headache/Pain Mild Scale (1-3) Al Hydroxide/Mg Hydroxide 30 ml 11/22/20 12:41 Magnesium Hydrox/Alum Hydrox 30 Ml Oral.Susp PO Q6H PRN Heartburn/Nausea Cephalexin HCl 500 mg 11/23/20 15:15 11/24/20 21:25 Cephalexin 500 Mg Capsule PO Not Given TID [facility] Clozapine 12.5 mg 11/23/20 21:00 11/24/20 21:26 Clozapine 25 Mg Tablet PO Not Given BEDTIME [facility] Glipizide 5 mg 11/23/20 14:05 11/24/20 09:29 Glipizide Xl 5 Mg Tab.Er.24 PO Not Given DAILY [facility] Hydroxyzine HCl 25 mg 11/22/20 12:41 Hydroxyzine Hcl 25 Mg Tablet PO Q6H PRN Anxiety Insulin Human Lispro 0 unit 11/23/20 16:30 11/24/20 21:25 Insulin Lispro 100 Unit/Ml 3 Ml Vial SUBCUT Not Given QIDACHS [facility] Protocol Lisinopril 20 mg 11/24/20 09:00 11/24/20 09:29 Lisinopril 20 Mg Tablet PO Not Given DAILY [facility] Protocol Lorazepam 1 mg 11/22/20 18:32 Lorazepam 1 Mg Tablet PO Q4H PRN Anxiety Magnesium Hydroxide 30 ml 11/22/20 12:41 Milk Of Magnesia 30 Ml Oral.Susp PO DAILY PRN Constipation Metformin HCl 500 mg 11/23/20 17:00 11/24/20 17:32 Metformin Hcl 500 Mg Tablet PO Not Given BIDWM [facility] Olanzapine 5 mg 11/23/20 12:58 Olanzapine 5 Mg Tablet PO TID PRN Psychosis Trazodone HCl 50 mg 11/22/20 12:41 Trazodone Hcl 50 Mg Tablet PO BEDTIME PRN Insomnia Allergies Allergies Allergy/AdvReac Type Severity Reaction Status Date / Time No Known Allergies Allergy Unverified 01/11/20 16:04 [No Known Allergies*] Assessment & Plan Assessment & Plan (1) Schizoaffective disorder, bipolar type: Status: Acute Code(s): F25.0 - Schizoaffective disorder, bipolar type Assessment and Plan: - Admitted on a CV - DW patient restarting Clozaril. Will start patient on Clozaril 12.5 mg HS. Patient agrees with this plan as Clozapine has been helpful for her for many years. - Switch Zyprexa to PRN. - Consider restart [place] - Encourage milieu treatment. - Disposition planning - Would restrict to unit for now as patient continues psychotic and also has strong desire to leave. Elopement risk due to disorganized thinking and behavior. Reason for continued inpatient stay Substantial Risk for: inability to function and rapid decompensation Assessment and Plan: - Admitted on a CV. Signed 3 day notice. May need to file for section 7/8. - Clozaril 12.5 mg HS. Patient agrees with this plan as Clozapine has been helpful for her for many years. - Zyprexa PRN. - Consider restart [place] - Encourage milieu treatment. - Disposition planning - Would restrict to unit for now as patient continues psychotic and also has strong desire to leave. Elopement risk due to disorganized thinking and behavior. Greater than 50% of the session was spent on counseling and/or coordination of care Reason for contiued inpatient stay Substantial Risk for: harm to self, harm to others, inability to function and rapid decompensation
--- NOTE | 2020-11-25 16:05 | P.PNPSI_ITS ---
Subjective Subjective Date of Service: 11/25/20 Reason For Visit: I could not sleep Interim History: pt amenable to interview with MD. appears hesitant, mistrustful, anxious. ultimately tearful. MD suggested she take lithium for bipolar disorder, to which she ultimately agrees. also to take clozapine. per staff, 3-day matures weds. not attending groups, not sleeping, refusing med ications, VS, POC. BP elevated. staph UTI and refusing antibx. Mental Status Exam Mental Status Exam Narrative: adequately dressed and groomed, cooperative, no PMA/PMR. speech nml rate, decr amount, nml loudness, increased latency. thoughts linear in response to questions. affect constricted, normo-intense, mod-labile. no SI/HI/AVH expressed. Diagnostics Vital Signs (24Hr): Body Mass Index 34.4 Labs Results: 11/22/20 03:15 11/22/20 03:15 Medications Medications Current Medications Generic Name Dose Route Start Last Admin Trade Name Freq PRN Reason Stop Dose Admin Acetaminophen 650 mg 11/22/20 12:41 Acetaminophen 325 Mg Tablet PO Q6H PRN Headache/Pain Mild Scale (1-3) Al Hydroxide/Mg Hydroxide 30 ml 11/22/20 12:41 Magnesium Hydrox/Alum Hydrox 30 Ml Oral.Susp PO Q6H PRN Heartburn/Nausea Cephalexin HCl 500 mg 11/23/20 15:15 11/25/20 14:23 Cephalexin 500 Mg Capsule PO Not Given TID [facility] Clozapine 12.5 mg 11/25/20 10:45 11/25/20 12:33 Clozapine 25 Mg Tablet PO Not Given BID [facility] Glipizide 5 mg 11/23/20 14:05 11/25/20 08:33 Glipizide Xl 5 Mg Tab.Er.24 PO Not Given DAILY [facility] Hydroxyzine HCl 25 mg 11/22/20 12:41 Hydroxyzine Hcl 25 Mg Tablet PO Q6H PRN Anxiety Insulin Human Lispro 0 unit 11/23/20 16:30 11/25/20 10:45 Insulin Lispro 100 Unit/Ml 3 Ml Vial SUBCUT Not Given QIDACHS [facility] Protocol Lisinopril 20 mg 11/24/20 09:00 11/25/20 08:33 Lisinopril 20 Mg Tablet PO Not Given DAILY [facility] Protocol [place] Carbonate 450 mg 11/25/20 11:00 11/25/20 12:33 [place] Carbonate Er 450 Mg Tablet.Er PO Not Given BID [facility] Lorazepam 1 mg 11/22/20 18:32 Lorazepam 1 Mg Tablet PO Q4H PRN Anxiety Magnesium Hydroxide 30 ml 11/22/20 12:41 Milk Of Magnesia 30 Ml Oral.Susp PO DAILY PRN Constipation Metformin HCl 500 mg 11/23/20 17:00 11/25/20 08:33 Metformin Hcl 500 Mg Tablet PO Not Given BIDWM [facility] Olanzapine 5 mg 11/23/20 12:58 Olanzapine 5 Mg Tablet PO TID PRN Psychosis Trazodone HCl 50 mg 11/22/20 12:41 Trazodone Hcl 50 Mg Tablet PO BEDTIME PRN Insomnia Allergies Allergies Allergy/AdvReac Type Severity Reaction Status Date / Time No Known Allergies Allergy Unverified 01/11/20 16:04 [No Known Allergies*] Assessment & Plan Assessment & Plan (1) Schizoaffective disorder, bipolar type: Status: Acute Code(s): F25.0 - Schizoaffective disorder, bipolar type Assessment and Plan: - Admitted on a CV - DW patient restarting Clozaril. started patient on Clozaril 12.5 mg HS. Patient agrees with this plan as Clozapine has been helpful for her for many years. refusing medication, dosing increased to 12.5 BID on pt agreement to take. - Zyprexa to PRN. - restarted [place] 11/25 with pt's verbal agreement. - Encourage milieu treatment. - Disposition planning - Would restrict to unit for now as patient continues psychotic and also has strong desire to leave. Elopement risk due to disorganized thinking and behavior. Reason for continued inpatient stay Substantial Risk for: inability to function and rapid decompensation Greater than 50% of the session was spent on counseling and/or coordination of care Reason for contiued inpatient stay Substantial Risk for: inability to function and rapid decompensation
--- NOTE | 2020-11-25 16:32 | P.EN_ITS ---
Event Note Date of Service: 11/25/20 Event Note: Patient refusing blood sugar checks and refusing glipizide, theref ore will discontinue glipizide continue metformin twice daily and strongly recommend diabetic diet Will sign off call with any question or concerns
[2020-11-25] MEDS: cloZAPine 25 MG TABLET 12.5 MG PO (16:59)
--- NOTE | 2020-11-25 17:00 | PC.NURSE ---
Pt requesting md sudarshan notified, ok to administer
--- NOTE | 2020-11-25 17:09 | PC.NURSE ---
PT refusing to allow assessment of blood sugar. Dr. Bradshaw aware
--- NOTE | 2020-11-25 18:00 | PC.NURSE ---
Pt requested then refused tylenol, states she feels woozy, POC assessed 245, pt declined insulin and all offered medication.
[2020-11-25 18:02] LABS: Glucose, Whole Blood 245 mg/dL (60-115)
[2020-11-25 18:23] VITALS: BP 183/89; PULSE 95; RESP 17; TEMP 36.7; O2SAT 97
[2020-11-25 18:27] VITALS: BP 183/89; PULSE 95
--- NOTE | 2020-11-25 18:30 | PC.NURSE ---
PT BP 183/89 hr 95. aware, ok to give unscheduled dose of lisinopril, pt accepted medication. Pt asking what will happen to her body if she dies, pt states if i will you guys be nice to my body and not hurt it Pt offered reassurance that staff is here to help her.
[2020-11-26] MEDS: cloZAPine 25 MG TABLET 12.5 MG PO ×2 (08:25→21:12)
[2020-11-26 08:40] VITALS: BP 142/60; PULSE 71; RESP 17; TEMP 36.8; O2SAT 96
--- NOTE | 2020-11-26 13:43 | P.PNPSI_ITS ---
Subjective Subjective Date of Service: 11/26/20 Reason For Visit: I could not sleep Interim History: pt found lying in her bed, awake. agreeable to meet with MD, but asks to speak in her room this time, door open. poor insight into the severity of her Sx, thinks she should have just gotten a script and been discharged back to work. MD tries to gently impress upon her her need for ho spitalization and medication. very resistant to restarting lithium or other mood stabilizer. states she will consider it and discuss with MD tomorrow. per staf, 3-day matures tomorrow. slept [id number] today, which is new. took clozaril x2. allowed VS, FSBS as well. Mental Status Exam Mental Status Exam Narrative: adequately dressed and groomed, cooperative, no PMA/PMR. speech nml rate, amount, loudness; decr latency. thoughts linear in response to questions. affect constricted, normo-intense, mod-labile. no SI/HI/AVH expressed. Diagnostics Vital Signs (24Hr): Vital Signs - 24 hr 11/25/20 18:23 11/25/20 18:27 11/26/20 08:40 Temperature 98.0 F 98.3 F Pulse Rate 95 95 71 Respiratory Rate 17 17 Blood Pressure 183/89 H 183/89 H 142/60 H Pulse Oximetry 97 96 Body Mass Index 34.4 Labs Results: 11/22/20 03:15 11/22/20 03:15 Labs: Laboratory Results - last 48 hr 11/25/20 17:57 POC Glucose 245 H Medications Medications Current Medications Generic Name Dose Route Start Last Admin Trade Name [place] PRN Reason Stop Dose Admin Acetaminophen 650 mg 11/22/20 12:41 Acetaminophen 325 Mg Tablet PO Q6H PRN Headache/Pain Mild Scale (1-3) Al Hydroxide/Mg Hydroxide 30 ml 11/22/20 12:41 Magnesium Hydrox/Alum Hydrox 30 Ml Oral.Susp PO Q6H PRN Heartburn/Nausea Cephalexin HCl 500 mg 11/23/20 15:15 11/26/20 08:29 Cephalexin 500 Mg Capsule PO Not Given TID [facility] Clozapine 12.5 mg 11/25/20 10:45 11/26/20 08:25 Clozapine 25 Mg Tablet PO 12.5 mg BID [facility] Administration Hydroxyzine HCl 25 mg 11/22/20 12:41 Hydroxyzine Hcl 25 Mg Tablet PO Q6H PRN Anxiety Insulin Human Lispro 0 unit 11/23/20 16:30 11/26/20 12:52 Insulin Lispro 100 Unit/Ml 3 Ml Vial SUBCUT Not Given QIDACHS [facility] Protocol Lisinopril 20 mg 11/24/20 09:00 11/26/20 08:41 Lisinopril 20 Mg Tablet PO Not Given DAILY [facility] Protocol [place] Carbonate 450 mg 11/25/20 11:00 11/26/20 08:29 [place] Carbonate Er 450 Mg Tablet.Er PO Not Given BID [facility] Lorazepam 1 mg 11/22/20 18:32 Lorazepam 1 Mg Tablet PO Q4H PRN Anxiety Magnesium Hydroxide 30 ml 11/22/20 12:41 Milk Of Magnesia 30 Ml Oral.Susp PO DAILY PRN Constipation Metformin HCl 500 mg 11/23/20 17:00 11/26/20 08:29 Metformin Hcl 500 Mg Tablet PO Not Given BIDWM [facility] Olanzapine 5 mg 11/23/20 12:58 Olanzapine 5 Mg Tablet PO TID PRN Psychosis Trazodone HCl 50 mg 11/22/20 12:41 Trazodone Hcl 50 Mg Tablet PO BEDTIME PRN Insomnia Allergies Allergies Allergy/AdvReac Type Severity Reaction Status Date / Time No Known Allergies Allergy Unverified 01/11/20 16:04 [No Known Allergies*] Assessment & Plan Assessment & Plan (1) Schizoaffective disorder, bipolar type: Status: Acute Code(s): F25.0 - Schizoaffective disorder, bipolar type Assessment and Plan: - Admitted on a CV - started patient on Clozaril 12.5 mg HS. Patient agrees with this plan as Clozapine has been helpful for her for many years. then refusing medication, dosing increased to 12.5 BID on pt agreement to take. - Zyprexa to PRN. - restarted [place] 11/25 with pt's verbal agreement. pt then refusing medication. - Encourage milieu treatment. - Disposition planning - Would restrict to unit for now as patient continues psychotic and also has strong desire to leave. Elopement risk due to disorganized thinking and behavior. Greater than 50% of the session was spent on counseling and/or coordination of care Reason for contiued inpatient stay Substantial Risk for: inability to function and rapid decompensation
[2020-11-26 18:00] VITALS: BP 146/75; PULSE 84; RESP 18; TEMP 36.8; O2SAT 98
--- NOTE | 2020-11-27 00:41 | PC.NURSE ---
Patient refused POC and HS medications except clozaril.
[2020-11-27 06:00] VITALS: BP 184/79; PULSE 89; RESP 18; TEMP 37.1; O2SAT 99
[2020-11-27 20:00] VITALS: BP 155/73; PULSE 87; TEMP 36.2; O2SAT 98
--- NOTE | 2020-11-27 20:44 | P.PNPSI_ITS ---
Subjective Subjective Date of Service: 11/27/20 Reason For Visit: I could not sleep Subjective Notes: Section 7 and 3 Day Healthcare Proxy: No Guardianship: No Interim History: Coverage today for Dr. Bradshaw. Patient with history of schizoaffective versus bipolar disorder demanding to leave the hospital or to be transferred to medical for but unable to explain why. Refusing clozapine and lithium had been stable on this previously had not been seen outpatient since December 2019 patient has no explanation for why she is not taking medication also refusing medication for hypertension and diabetes Discussed with patient concerns regarding her being discharged without treatment for her mood disorder and paranoia patient aware we are filing for commitment and treatment order. Does not wish to retract 3 day Medication Compliance: No Mental Status Exam Mental Status Exam Narrative: Patient was able to discuss court hearing and appeared to understand the process. She could not explain why she was refusing clozapine and lithium. Mood anxious irritable labile angry Demanded to be transferred to medical floor but could not explain and could not seem to integrate information regarding hypertension and diabetes her mood was anxious she was intense stating that she could not stay on the unit denied thoughts of harm to herself or others insight judgment impaired Diagnostics Vital Signs (24Hr): Vital Signs - 24 hr 11/27/20 06:00 Temperature 98.7 F Pulse Rate 89 Respiratory Rate 18 Blood Pressure 184/79 H Pulse Oximetry 99 Body Mass Index 34.4 Labs Results: 11/22/20 03:15 11/22/20 03:15 Medications Medications Current Medications Generic Name Dose Route Start Last Admin Trade Name Freq PRN Reason Stop Dose Admin Acetaminophen 650 mg 11/22/20 12:41 Acetaminophen 325 Mg Tablet PO Q6H PRN Headache/Pain Mild Scale (1-3) Al Hydroxide/Mg Hydroxide 30 ml 11/22/20 12:41 Magnesium Hydrox/Alum Hydrox 30 Ml Oral.Susp PO Q6H PRN Heartburn/Nausea Cephalexin HCl 500 mg 11/23/20 15:15 11/27/20 17:29 Cephalexin 500 Mg Capsule PO Not Given TID SARMAD Clozapine 12.5 mg 11/25/20 10:45 11/27/20 10:44 Clozapine 25 Mg Tablet PO Not Given BID SARMAD Hydroxyzine HCl 25 mg 11/22/20 12:41 Hydroxyzine Hcl 25 Mg Tablet PO Q6H PRN Anxiety Insulin Human Lispro 0 unit 11/23/20 16:30 11/27/20 17:59 Insulin Lispro 100 Unit/Ml 3 Ml Vial SUBCUT Not Given QIDACHS [facility] Protocol Lisinopril 20 mg 11/24/20 09:00 11/27/20 10:45 Lisinopril 20 Mg Tablet PO Not Given DAILY [facility] Protocol [place] Carbonate 300 mg 11/27/20 21:00 [place] Carbonate Er 300 Mg Tablet.Er PO BID [facility] Lorazepam 1 mg 11/22/20 18:32 Lorazepam 1 Mg Tablet PO Q4H PRN Anxiety Magnesium Hydroxide 30 ml 11/22/20 12:41 Milk Of Magnesia 30 Ml Oral.Susp PO DAILY PRN Constipation Metformin HCl 500 mg 11/23/20 17:00 11/27/20 18:07 Metformin Hcl 500 Mg Tablet PO Not Given BIDWM S[facility]AD Olanzapine 5 mg 11/23/20 12:58 Olanzapine 5 Mg Tablet PO TID PRN Psychosis Trazodone HCl 50 mg 11/22/20 12:41 Trazodone Hcl 50 Mg Tablet PO BEDTIME PRN Insomnia Allergies Allergies Allergy/AdvReac Type Severity Reaction Status Date / Time No Known Allergies Allergy Unverified 01/11/20 16:04 [No Known Allergies*] Assessment & Plan Assessment & Plan (1) Schizoaffective disorder, bipolar type: Status: Acute Code(s): F25.0 - Schizoaffective disorder, bipolar type Assessment and Plan: - Admitted on a CV Patient on clozapine lithium which she had initially agreed to but has been refusing. Paperwork for retention and treatment order filed patient refusing treatment for diabetes and hypertension. Sister willing to testify quite concerned regarding patient - Would restrict to unit for now as patient continues psychotic and also has strong desire to leave. Elopement risk due to disorganized thinking and behavior. Greater than 50% of the session was spent on counseling and/or coordination of care Reason for contiued inpatient stay Substantial Risk for: inability to function, rapid decompensation and med/psych decompensation
--- NOTE | 2020-11-27 23:26 | PC.NURSE ---
Emma declined to do the POC assessment. Patient also refused to take any scheduled medications.
[2020-11-28 09:15] VITALS: BP 167/79; PULSE 85; RESP 16; TEMP 36.7; O2SAT 99
--- NOTE | 2020-11-28 11:45 | P.PNPSI_ITS ---
Subjective Subjective Date of Service: 11/28/20 Reason For Visit: I could not sleep Subjective Notes: Roman Warning Interim History: roman warning provide today. pt generally derisive and hostile. feels she is being held here illegitimately and is being harassed or persecuted by medical personnel in being held against her will. denies having diabetes, essentially saying she did not have it prior to admission and that we are gaslighting her. no appreciation for the risks of uncontrolled DM or HTN - or mental illness - and refusal to cooperate. believes she is fine both mentally and physically and should be discharged so she can return to work: there's nothing wrong with me. refusing medications. per staff, pt has denied dep/anx. she presents as angry to be here, demanding of staff. isolative. expressed fear of a particular staff member bcse that staff member walks weird. slept through the night. c/o feeling she is being touched at night. Mental Status Exam Mental Status Exam Narrative: dressed in hospital scrubs. minimally cooperative with interview. PMA of aggressive posturing and gesticulations (sitting on her bed, across the room from interviewers, however). speech incr in rate,a mount, loudness. decr latency. thoughts generally circumstantial. affect hyper-intense and labile. no SI/HI/AVH expressed. Diagnostics Vital Signs (24Hr): Vital Signs - 24 hr 11/27/20 20:00 11/28/20 09:15 Temperature 97.1 F 98.0 F Pulse Rate 87 85 Respiratory Rate 16 Blood Pressure 155/73 H 167/79 H Pulse Oximetry 98 99 Body Mass Index 34.4 Labs Results: 11/22/20 03:15 11/22/20 03:15 Medications Medications Current Medications Generic Name Dose Route Start Last Admin Trade Name Freq PRN Reason Stop Dose Admin Acetaminophen 650 mg 11/22/20 12:41 Acetaminophen 325 Mg Tablet PO Q6H PRN Headache/Pain Mild Scale (1-3) Al Hydroxide/Mg Hydroxide 30 ml 11/22/20 12:41 Magnesium Hydrox/Alum Hydrox 30 Ml Oral.Susp PO Q6H PRN Heartburn/Nausea Cephalexin HCl 500 mg 11/23/20 15:15 11/28/20 09:34 Cephalexin 500 Mg Capsule PO Not Given TID [facility] Clozapine 12.5 mg 11/25/20 10:45 11/28/20 09:34 Clozapine 25 Mg Tablet PO Not Given BID SARMAD Hydroxyzine HCl 25 mg 11/22/20 12:41 Hydroxyzine Hcl 25 Mg Tablet PO Q6H PRN Anxiety Insulin Human Lispro 0 unit 11/23/20 16:30 11/28/20 09:35 Insulin Lispro 100 Unit/Ml 3 Ml Vial SUBCUT Not Given QIDACHS [facility] Protocol Lisinopril 20 mg 11/24/20 09:00 11/28/20 09:34 Lisinopril 20 Mg Tablet PO Not Given DAILY [facility] Protocol [place] Carbonate 300 mg 11/27/20 21:00 11/28/20 09:35 [place] Carbonate Er 300 Mg Tablet.Er PO Not Given BID [facility] Lorazepam 1 mg 11/22/20 18:32 Lorazepam 1 Mg Tablet PO Q4H PRN Anxiety Magnesium Hydroxide 30 ml 11/22/20 12:41 Milk Of Magnesia 30 Ml Oral.Susp PO DAILY PRN Constipation Metformin HCl 500 mg 11/23/20 17:00 11/28/20 09:35 Metformin Hcl 500 Mg Tablet PO Not Given BIDWM [facility] Olanzapine 5 mg 11/23/20 12:58 Olanzapine 5 Mg Tablet PO TID PRN Psychosis Trazodone HCl 50 mg 11/22/20 12:41 Trazodone Hcl 50 Mg Tablet PO BEDTIME PRN Insomnia Allergies Allergies Allergy/AdvReac Type Severity Reaction Status Date / Time No Known Allergies Allergy Unverified 01/11/20 16:04 [No Known Allergies*] Assessment & Plan Assessment & Plan (1) Schizoaffective disorder, bipolar type: Status: Acute Code(s): F25.0 - Schizoaffective disorder, bipolar type Assessment and Plan: - Admitted on a CV - started patient on Clozaril 12.5 mg HS. Patient agrees with this plan as Clozapine has been helpful for her for many years.? then refusing medication, dosing increased to 12.5 BID on pt agreement to take. pt has been refusing medication since. - Zyprexa to PRN. - restarted [place] 11/25 with pt's verbal agreement.? pt then refusing medication. - Paperwork for retention and treatment order filed patient refusing treatment for diabetes and hypertension. Sister willing to testify quite concerned regarding patient - Would restrict to unit for now as patient continues psychotic and also has strong desire to leave. Elopement risk due to disorganized thinking and behavior. (2) Diabetes: Status: Acute Code(s): E11.9 - Type 2 diabetes mellitus without complications Assessment and Plan: encourage pt to comply with treatment. (3) Hypertension: Status: Acute Code(s): I10 - Essential (primary) hypertension Assessment and Plan: encourage pt to comply with treatment Greater than 50% of the session was spent on counseling and/or coordination of care Reason for contiued inpatient stay Substantial Risk for: inability to function and rapid decompensation
[2020-11-28 18:00] VITALS: BP 139/66; PULSE 84; RESP 16; TEMP 37.1; O2SAT 97
--- NOTE | 2020-11-28 22:52 | PC.NURSE ---
refused all medications as well as POC
[2020-11-29 08:00] VITALS: BP 132/70; PULSE 68; RESP 18; TEMP 37; O2SAT 98
--- NOTE | 2020-11-29 10:17 | MHC.CLN ---
NUTRITION REVIEWED NOTES THAT PATIENT REFUSING MEDS AND POC AND QUESTIONS THAT SHE IS DIABETIC. CONTINUE WITH THERAPEUTIC DIET, DIABETIC 1800 KCAL AND POC/MEDS ABLE.
--- NOTE | 2020-11-29 13:03 | HO.PSYCHPN ---
Subjective Subjective Date of Service: 11/29/20 Reason For Visit: I could not sleep Interim History: pt reports she had a bad night. she states there were three admissions and all men and she wasn't trusting anybody, especially the new male patients. she spent much of the night seated down by the nursing station for safety. digressive, moderately disorganized. more receptive than yesterday, less irritable/angry. talking about taking her BP medication and clozaril again. she believes it will allow her to leave the hospital sooner. met with travel rn yesterday, will be meeting again on wednesday per her report. supported pt's taking medication, informing her it will get her better sooner which will allow her to leave the hospital sooner. pt asking about FMLA, referred to SW. Mental Status Exam Mental Status Exam Narrative: adequately dressed and groomed, cooperative, no PMA/PMR. speech nml rate, amount, loudness, latency. thoughts digressive and loose. affect constricted, normo-intense, min-labile. no SI/HI/AVH expressed. Diagnostics Vital Signs (24Hr): Vital Signs - 24 hr 11/28/20 18:00 11/29/20 08:00 Temperature 98.7 F 98.6 F Pulse Rate 84 68 Respiratory Rate 16 18 Blood Pressure 139/66 132/70 Pulse Oximetry 97 98 Body Mass Index 34.4 Labs Results: 11/22/20 03:15 11/22/20 03:15 Medications Medications Current Medications Generic Name Dose Route Start Last Admin Trade Name Freq PRN Reason Stop Dose Admin Acetaminophen 650 mg 11/22/20 12:41 Acetaminophen 325 Mg Tablet PO Q6H PRN Headache/Pain Mild Scale (1-3) Al Hydroxide/Mg Hydroxide 30 ml 11/22/20 12:41 Magnesium Hydrox/Alum Hydrox 30 Ml Oral.Susp PO Q6H PRN Heartburn/Nausea Cephalexin HCl 500 mg 11/23/20 15:15 11/29/20 09:07 Cephalexin 500 Mg Capsule PO Not Given TID SARMAD Clozapine 12.5 mg 11/25/20 10:45 11/29/20 09:07 Clozapine 25 Mg Tablet PO Not Given BID SARMAD Hydroxyzine HCl 25 mg 11/22/20 12:41 Hydroxyzine Hcl 25 Mg Tablet PO Q6H PRN Anxiety Insulin Human Lispro 0 unit 11/23/20 16:30 11/29/20 12:25 Insulin Lispro 100 Unit/Ml 3 Ml Vial SUBCUT Not Given QIDACHS [facility] Protocol Lisinopril 20 mg 11/24/20 09:00 11/29/20 09:07 Lisinopril 20 Mg Tablet PO Not Given DAILY [facility] Protocol [place] Carbonate 300 mg 11/27/20 21:00 11/29/20 09:08 [place] Carbonate Er 300 Mg Tablet.Er PO Not Given BID SARMAD Lorazepam 1 mg 11/22/20 18:32 Lorazepam 1 Mg Tablet PO Q4H PRN Anxiety Magnesium Hydroxide 30 ml 11/22/20 12:41 Milk Of Magnesia 30 Ml Oral.Susp PO DAILY PRN Constipation Metformin HCl 500 mg 11/23/20 17:00 11/29/20 09:06 Metformin Hcl 500 Mg Tablet PO Not Given BIDWM SARMAD Olanzapine 5 mg 11/23/20 12:58 Olanzapine 5 Mg Tablet PO TID PRN Psychosis Trazodone HCl 50 mg 11/22/20 12:41 Trazodone Hcl 50 Mg Tablet PO BEDTIME PRN Insomnia Allergies Allergies Allergy/AdvReac Type Severity Reaction Status Date / Time No Known Allergies Allergy Unverified 01/11/20 16:04 [No Known Allergies*] Assessment & Plan Assessment & Plan (1) Schizoaffective disorder, bipolar type: Status: Acute Code(s): F25.0 - Schizoaffective disorder, bipolar type Assessment and Plan: - Admitted on a CV - started patient on Clozaril 12.5 mg HS. Patient agreed with this plan as Clozapine had been helpful for her for many years.? then refused medication, dosing increased to 12.5 BID on second pt agreement to take. pt has been refusing medication since. - Zyprexa to PRN. - restarted [place] 11/25 with pt's verbal agreement.? pt then refusing medication. - Paperwork for retention and treatment order filed patient refusing treatment for diabetes and hypertension. Sister willing to testify quite concerned regarding patient - Would restrict to unit for now as patient continues psychotic and also has strong desire to leave. Elopement risk due to disorganized thinking and behavior. (2) Diabetes: Status: Acute Code(s): E11.9 - Type 2 diabetes mellitus without complications Assessment and Plan: encourage pt to comply with treatment. (3) Hypertension: Status: Acute Code(s): I10 - Essential (primary) hypertension Assessment and Plan: encourage pt to comply with treatment Greater than 50% of the session was spent on counseling and/or coordination of care Reason for contiued inpatient stay Substantial Risk for: inability to function and rapid decompensation
[2020-11-29 18:00] VITALS: BP 165/78; PULSE 82; TEMP 37.2; O2SAT 96
[2020-11-30 08:00] VITALS: BP 156/84; PULSE 70; RESP 16; TEMP 36.5; O2SAT 97
--- NOTE | 2020-11-30 14:39 | P.PNPSI_ITS ---
Subjective Subjective Date of Service: 11/30/20 Reason For Visit: I could not sleep Interim History: pt seen in her room mid-morning. she reports she is fine and her BP and blood sugar are normal and she will not take any medication for them. she is unable to recognize her troy and declines both clozaril and lithium; furthermore, she asserts she will not take lithium for the rest of her life. MD encourages her to reconsider her positions. per staff, poor sleep, preoccupied. refusing medications, vital signs, and FSBS. Mental Status Exam Mental Status Exam Narrative: adequately dressed and groomed, minimally cooperative, no PMA/PMR. speech incr rate, amount. nml loudness, decr latency. thoughts digressive and loose. affect constricted, hyper-intense, mod-labile. no SI/HI/AVH expressed. Diagnostics Vital Signs (24Hr): Vital Signs - 24 hr 11/29/20 18:00 11/30/20 08:00 Temperature 99 F 97.7 F Pulse Rate 82 70 Respiratory Rate 16 Blood Pressure 165/78 H 156/84 H Pulse Oximetry 96 97 Body Mass Index 34.4 Labs Results: 11/22/20 03:15 11/22/20 03:15 Medications Medications Current Medications Generic Name Dose Route Start Last Admin Trade Name Freq PRN Reason Stop Dose Admin Acetaminophen 650 mg 11/22/20 12:41 Acetaminophen 325 Mg Tablet PO Q6H PRN Headache/Pain Mild Scale (1-3) Al Hydroxide/Mg Hydroxide 30 ml 11/22/20 12:41 Magnesium Hydrox/Alum Hydrox 30 Ml Oral.Susp PO Q6H PRN Heartburn/Nausea Cephalexin HCl 500 mg 11/23/20 15:15 11/30/20 09:43 Cephalexin 500 Mg Capsule PO Not Given TID [facility]ARM[facility] Clozapine 12.5 mg 11/25/20 10:45 11/30/20 09:42 Clozapine 25 Mg Tablet PO Not Given BID [facility] Hydroxyzine HCl 25 mg 11/22/20 12:41 Hydroxyzine Hcl 25 Mg Tablet PO Q6H PRN Anxiety Insulin Human Lispro 0 unit 11/23/20 16:30 11/30/20 13:11 Insulin Lispro 100 Unit/Ml 3 Ml Vial SUBCUT Not Given QIDACHS [facility] Protocol Lisinopril 20 mg 11/24/20 09:00 11/30/20 09:42 Lisinopril 20 Mg Tablet PO Not Given DAILY [facility] Protocol [place] Carbonate 300 mg 11/27/20 21:00 11/30/20 09:42 [place] Carbonate Er 300 Mg Tablet.Er PO Not Given BID SARMAD Lorazepam 1 mg 11/22/20 18:32 Lorazepam 1 Mg Tablet PO Q4H PRN Anxiety Magnesium Hydroxide 30 ml 11/22/20 12:41 Milk Of Magnesia 30 Ml Oral.Susp PO DAILY PRN Constipation Metformin HCl 500 mg 11/23/20 17:00 11/30/20 09:42 Metformin Hcl 500 Mg Tablet PO Not Given BIDWM SARMAD Olanzapine 5 mg 11/23/20 12:58 Olanzapine 5 Mg Tablet PO TID PRN Psychosis Trazodone HCl 50 mg 11/22/20 12:41 Trazodone Hcl 50 Mg Tablet PO BEDTIME PRN Insomnia Allergies Allergies Allergy/AdvReac Type Severity Reaction Status Date / Time No Known Allergies Allergy Unverified 01/11/20 16:04 [No Known Allergies*] Assessment & Plan Assessment & Plan (1) Schizoaffective disorder, bipolar type: Status: Acute Code(s): F25.0 - Schizoaffective disorder, bipolar type Assessment and Plan: - Admitted on a CV - started patient on Clozaril 12.5 mg HS. Patient agreed with this plan as Clozapine had been helpful for her for many years.? then refused medication, dosing increased to 12.5 BID on second pt agreement to take. pt has been refusing medication since. - Zyprexa to PRN. - restarted [place] 11/25 with pt's verbal agreement.? pt then refusing medication. - Paperwork for retention and treatment order filed patient refusing treatment for diabetes and hypertension. Sister willing to testify quite concerned regarding patient. hearing scheduled for 12/03. - Would restrict to unit for now as patient continues psychotic and also has strong desire to leave. Elopement risk due to disorganized thinking and behavior. (2) Diabetes: Status: Acute Code(s): E11.9 - Type 2 diabetes mellitus without complications Assessment and Plan: encourage pt to comply with treatment. (3) Hypertension: Status: Acute Code(s): I10 - Essential (primary) hypertension Assessment and Plan: encourage pt to comply with treatment Greater than 50% of the session was spent on counseling and/or coordination of care Reason for contiued inpatient stay Substantial Risk for: inability to function and rapid decompensation
[2020-11-30 21:42] VITALS: BP 147/80; PULSE 66; TEMP 36.5; O2SAT 98
[2020-11-30] MEDS: cloZAPine 25 MG TABLET 12.5 MG PO (22:41)
[2020-12-01 08:45] VITALS: BP 130/80; PULSE 69; RESP 16; TEMP 36.6; O2SAT 97
--- NOTE | 2020-12-01 13:50 | HO.PSYCHPN ---
Subjective Subjective Date of Service: 12/01/20 Reason For Visit: I could not sleep Interim History: pt seen in her room late morning. she reports she is fine and her BP and blood sugar are normal and she will not take any medication for them. she is unable to recognize her troy and declines lithium or any other mood stabilizer; furthermore, she again asserts she will not take lithium for the rest of her life. she does state she will take clozaril at bedtime. MD encourages her to reconsider her position re mood stabilizers. per staff, poor sleep, irritable today. took clozaril last night. Mental Status Exam Mental Status Exam Narrative: adequately dressed and groomed, not cooperative, no PMA/PMR. speech incr rate, amount, loudness. decr latency. thoughts digressive and loose. affect constricted, hyper-intense, labile. no SI/HI/AVH expressed. Diagnostics Vital Signs (24Hr): Vital Signs - 24 hr 11/30/20 21:42 12/01/20 08:45 Temperature 97.7 F 97.9 F Pulse Rate 66 69 Respiratory Rate 16 Blood Pressure 147/80 H 130/80 Pulse Oximetry 98 97 Body Mass Index 34.4 Labs Results: 11/22/20 03:15 11/22/20 03:15 Medications Medications Current Medications Generic Name Dose Route Start Last Admin Trade Name Sundayq PRN Reason Stop Dose Admin Acetaminophen 650 mg 11/22/20 12:41 Acetaminophen 325 Mg Tablet PO Q6H PRN Headache/Pain Mild Scale (1-3) Al Hydroxide/Mg Hydroxide 30 ml 11/22/20 12:41 Magnesium Hydrox/Alum Hydrox 30 Ml Oral.Susp PO Q6H PRN Heartburn/Nausea Clozapine 12.5 mg 11/25/20 10:45 12/01/20 11:10 Clozapine 25 Mg Tablet PO Not Given BID SARMAD Hydroxyzine HCl 25 mg 11/22/20 12:41 Hydroxyzine Hcl 25 Mg Tablet PO Q6H PRN Anxiety Insulin Human Lispro 0 unit 11/23/20 16:30 12/01/20 12:51 Insulin Lispro 100 Unit/Ml 3 Ml Vial SUBCUT Not Given QIDACHS [facility] Protocol Lisinopril 20 mg 11/24/20 09:00 12/01/20 11:10 Lisinopril 20 Mg Tablet PO Not Given DAILY [facility] Protocol [place] Carbonate 300 mg 11/27/20 21:00 12/01/20 11:10 [place] Carbonate Er 300 Mg Tablet.Er PO Not Given BID SARMAD Lorazepam 1 mg 11/22/20 18:32 Lorazepam 1 Mg Tablet PO Q4H PRN Anxiety Magnesium Hydroxide 30 ml 11/22/20 12:41 Milk Of Magnesia 30 Ml Oral.Susp PO DAILY PRN Constipation Metformin HCl 500 mg 11/23/20 17:00 12/01/20 09:30 Metformin Hcl 500 Mg Tablet PO Not Given BIDWM [facility]ARM[facility] Olanzapine 5 mg 11/23/20 12:58 Olanzapine 5 Mg Tablet PO TID PRN Psychosis Trazodone HCl 50 mg 11/22/20 12:41 Trazodone Hcl 50 Mg Tablet PO BEDTIME PRN Insomnia Allergies Allergies Allergy/AdvReac Type Severity Reaction Status Date / Time No Known Allergies Allergy Unverified 01/11/20 16:04 [No Known Allergies*] Assessment & Plan Assessment & Plan (1) Schizoaffective disorder, bipolar type: Status: Acute Code(s): F25.0 - Schizoaffective disorder, bipolar type Assessment and Plan: - Admitted on a CV - started patient on Clozaril 12.5 mg HS. Patient agreed with this plan as Clozapine had been helpful for her for many years.? then refused medication, dosing increased to 12.5 BID on second pt agreement to take. pt has been regularly refusing medication since. she did take it 11/30 @[facility] and stated she would take it once daily at bedtime on 12/01. MD increased dosing to 50 mg QHS as of 12/01 in effort to get some traction with her troy to hopefully be able to better engage with her around her illness and proper treatment for it. the titration is more aggressive than recommended but it is felt to be necessary in this case due to lack of ability to engage thus far and pt's long h/o clozaril therapy and tolerability. - Zyprexa PRN. - restarted [place] 11/25 with pt's verbal agreement.? pt then refusing medication. - Paperwork for retention and treatment order filed patient refusing treatment for diabetes and hypertension. Sister willing to testify quite concerned regarding patient. hearing scheduled for 12/03. - Would restrict to unit for now as patient continues psychotic and also has strong desire to leave. Elopement risk due to disorganized thinking and behavior. (2) Diabetes: Status: Acute Code(s): E11.9 - Type 2 diabetes mellitus without complications Assessment and Plan: encourage pt to comply with treatment. (3) Hypertension: Status: Acute Code(s): I10 - Essential (primary) hypertension Assessment and Plan: encourage pt to comply with treatment Greater than 50% of the session was spent on counseling and/or coordination of care Reason for contiued inpatient stay Substantial Risk for: inability to function and rapid decompensation
[2020-12-01 20:22] VITALS: BP 143/70; PULSE 90; RESP 18; TEMP 36.7; O2SAT 98
[2020-12-01] MEDS: cloZAPine 25 MG TABLET 50 MG PO (20:38)
--- NOTE | 2020-12-02 09:49 | HO.PSYCHPN ---
Subjective Subjective Date of Service: 12/03/20 Reason For Visit: I could not sleep Subjective Notes: Section 7 Interim History: Pt reports she is here in hospital because she couldn't sleep. She reports switching from clozaril to olanzapine as she didn't want to have to do blood work in community. She does note that I couldn't sleep with Olanzapine. when asked about other symptoms of decompensation when she switched antipsychotics she does note some paranoia. She denies SI/HI. She does not think she needs further psychiatric treatment asking this field underwriter for discharge. Pt informed of court hearing tomorrow- pt insists on going to court. Medication Compliance: Intermittent Side effects from medications: No Attending Groups: No Review of Systems Acute medical concerns: No Mental Status Exam Mental Status Exam Narrative: adequately dressed and groomed, superficially cooperative, no PMA/PMR. speech incr rate, amount, loudness. decr latency. thoughts digressive and loose. affect constricted, hyper-intense, labile. no SI/HI/AVH expressed. Diagnostics Vital Signs (24Hr): Vital Signs - 24 hr 12/02/20 18:00 Temperature 98.0 F Pulse Rate 89 Respiratory Rate 18 Blood Pressure 145/82 H Pulse Oximetry 99 Body Mass Index 34.4 Labs Results: 11/22/20 03:15 11/22/20 03:15 Medications Medications Current Medications Generic Name Dose Route Start Last Admin Trade Name Freq PRN Reason Stop Dose Admin Acetaminophen 650 mg 11/22/20 12:41 Acetaminophen 325 Mg Tablet PO Q6H PRN Headache/Pain Mild Scale (1-3) Al Hydroxide/Mg Hydroxide 30 ml 11/22/20 12:41 Magnesium Hydrox/Alum Hydrox 30 Ml Oral.Susp PO Q6H PRN Heartburn/Nausea Clozapine 50 mg 12/01/20 21:00 12/02/20 20:04 Clozapine 25 Mg Tablet PO 50 mg BEDTIME SARMAD Administration Hydroxyzine HCl 25 mg 11/22/20 12:41 Hydroxyzine Hcl 25 Mg Tablet PO Q6H PRN Anxiety Insulin Human Lispro 0 unit 11/23/20 16:30 12/02/20 20:11 Insulin Lispro 100 Unit/Ml 3 Ml Vial SUBCUT Not Given QIDACHS SARMAD Protocol Lisinopril 20 mg 11/24/20 09:00 12/02/20 09:19 Lisinopril 20 Mg Tablet PO Not Given DAILY [facility] Protocol [place] Carbonate 300 mg 11/27/20 21:00 12/02/20 20:11 [place] Carbonate Er 300 Mg Tablet.Er PO Not Given BID SARMAD Magnesium Hydroxide 30 ml 11/22/20 12:41 Milk Of Magnesia 30 Ml Oral.Susp PO DAILY PRN Constipation Metformin HCl 500 mg 11/23/20 17:00 12/02/20 19:37 Metformin Hcl 500 Mg Tablet PO Not Given BIDWM SARMAD Olanzapine 5 mg 11/23/20 12:58 Olanzapine 5 Mg Tablet PO TID PRN Psychosis Trazodone HCl 50 mg 11/22/20 12:41 Trazodone Hcl 50 Mg Tablet PO BEDTIME PRN Insomnia Allergies Allergies Allergy/AdvReac Type Severity Reaction Status Date / Time No Known Allergies Allergy Unverified 01/11/20 16:04 [No Known Allergies*] Assessment & Plan Assessment & Plan (1) Schizoaffective disorder, bipolar type: Status: Acute Code(s): F25.0 - Schizoaffective disorder, bipolar type Assessment and Plan: - Admitted on a CV - started patient on Clozaril 12.5 mg HS. Patient agreed with this plan as Clozapine had been helpful for her for many years.? then refused medication, dosing increased to 12.5 BID on second pt agreement to take. pt has been regularly refusing medication since. she did take it 11/30 @[facility] and stated she would take it once daily at bedtime on 12/01. MD increased dosing to 50 mg QHS as of 12/01 in effort to get some traction with her troy to hopefully be able to better engage with her around her illness and proper treatment for it. the titration is more aggressive than recommended but it is felt to be necessary in this case due to lack of ability to engage thus far and pt's long h/o clozaril therapy and tolerability. - Zyprexa PRN. - restarted [place] 11/25 with pt's verbal agreement.? pt then refusing medication. - Paperwork for retention and treatment order filed patient refusing treatment for diabetes and hypertension. Sister willing to testify quite concerned regarding patient. hearing scheduled for 12/03. - Would restrict to unit for now as patient continues psychotic and also has strong desire to leave. Elopement risk due to disorganized thinking and behavior. (2) Diabetes: Status: Acute Code(s): E11.9 - Type 2 diabetes mellitus without complications Assessment and Plan: encourage pt to comply with treatment. (3) Hypertension: Status: Acute Code(s): I10 - Essential (primary) hypertension Assessment and Plan: encourage pt to comply with treatment Greater than 50% of the session was spent on counseling and/or coordination of care Reason for contiued inpatient stay Substantial Risk for: inability to function
[2020-12-02 18:00] VITALS: BP 145/82; PULSE 89; RESP 18; TEMP 36.7; O2SAT 99
[2020-12-02] MEDS: cloZAPine 25 MG TABLET 50 MG PO (20:04)
[2020-12-03 10:28] VITALS: BP 147/71; PULSE 89; TEMP 36.6; O2SAT 97
[2020-12-03 10:40] VITALS: BP 147/71; PULSE 89
[2020-12-03] MEDS: cloZAPine 25 MG TABLET 50 MG PO (20:54)
--- NOTE | 2020-12-03 20:56 | PC.NURSE ---
refused lithium and POC as well as insulin coverage
[2020-12-03 20:57] VITALS: BP 123/69; PULSE 102; TEMP 36.2; O2SAT 100
[2020-12-04 06:00] VITALS: BP 149/68; PULSE 86; RESP 18; TEMP 36.9; O2SAT 98
[2020-12-04 08:55] VITALS: BP 149/68; PULSE 85
--- NOTE | 2020-12-04 10:55 | PC.NURSE ---
Emma was escorted off the unit and out of [facility] at this time for discharge by this nurse and security. She continued to request to stay until sister arrived. She declined offer of CV and therefore has no legal status to stay since section [address] yesterday. Emma was given a cab voucher and cab was present to take her home but she declined to get in the cab stating, I don't know that chaitanya. I'm waiting for my sister. Emma was advised to take the cab home but she continued to decline the ride.
--- NOTE | 2020-12-04 13:18 | PM.PSYDC ---
DS: Providers Provider Date of Service: 12/04/20 Date of admission: 11/22/20 12:41 Primary care physician: Unknown Physician Consults: 11/23/20 13:06 Consult to Hospitalist Routine Consulting Provider: Hospitalist Reason For Exam: UTI and HTN DS: Diagnosis Discharge Diagnosis (1) Schizoaffective disorder, bipolar type: Status: Acute (2) Diabetes: Status: Acute (3) Hypertension: Status: Acute DS: Medications Discharge Medications Home Medications: Home Medications Medication Instructions Recorded Confirmed lisinopril 10 mg tablet 1 tab PO QAM 11/22/20 11/22/20 Previous Rx's Medication Instructions Recorded clozapine 25 mg tablet 50 mg PO BEDTIME #14 tab 12/03/20 lithium carbonate 300 mg 300 mg PO BID #30 tab 12/03/20 tablet,extended release metformin 500 mg tablet 500 mg PO BIDWM #60 tab 12/03/20 trazodone 50 mg tablet 50 mg PO BEDTIME PRN #14 tab 12/03/20 Mental Status Exam Mental Status Exam Narrative: adequately dressed and groomed, superficially cooperative, no PMA/PMR. speech incr rate, amount, loudness. decr latency. thoughts digressive and loose. affect constricted, hyper-intense, labile. no SI/HI/AVH expressed. Data Data Completed and Pending Completed studies during hospitalization [Text1]: 11/22/20 00:00 Urine clean catch - Clean Catch Midstream Urine Culture - Final Staphylococcus aureus DS: Summary Hospital Course Hospital Course: Patient is a 55 yo female to ER with family after being unable to sleep for a few nights she reports. Hx bipolar disorder, mixed; schizoaffective disorder, bipolar type. and HTN. Similiar presentation at [facility] in 2011 and 2012. Pt states she has been on Clozaril /Ballwin combination for over 20 years. She stopped Ballwin about 4 months ago (hx 600 mg HS) and stopped Clozaril 2-3 weeks ago, replacing this with Olanzapine. Patient reported to the psychiatry call center consultant that she has been somewhat hypersensitive to sounds, they say paranoid and reports has had increasing difficulty with her sleep, losing hours progressively. On 11/21/20 the pt's partner informed her sister of symptoms and sister assisted pt to the ER for evaluation. Pt had taken HS Olanzapine prior to ER visit. She reports 3 hours sleep 7/28-29 and 6 hours sleep with Lorazepam addition last night. Reports the decision to change medicine was due to the labor intensity of having labs, level managment and I wanted something that was simple for me so it would not interfere with my life. 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 Pt looking to have more time in her life for activity and family. Pt reports she prefers to return to Clozaril and make adjustments to continue diagnostics and meet requirements to continue medication which has worked in the past. Narrative: Pt reports a history of the use of Ballwin and Clozaril for ~ 20 years Past Psychiatric History: IP: Three admits- 10 years ago to [facility]; 20 years ago to a few hospitals in [place] (was transferred a few times) OP Psychopharm: Dieter López APRN Medical Evaluation Reviewed: Yes WBC 11.4; BUN 5; Random Glucose 280; Urine Glucose 500; Leuk Esterase 2+, Urine WBC 5-9, Ballwin 0.10, Urine Tox-, Covid - Personal & Social History: Lives with partner. One son, , age 33, who was a Marine- pt sees the couple approximately every two months HOSPITAL COURSE Pt initially admitted on CV and later she signed 3 day notice. Note that pt initially assigned to care of Dr. Chris Bradshaw. Please refer to his notes for further information about hospital course. Pt presented with paranoid delusions of kids fromFBI following her. She also presented with disorganized behaviors, very paranoid, sleeping next to nurses station. She had UTI, but she declined antibiotic stating that she did not believe this to be true. She also declined taking medications for DM or for HTN also due to delusions in part thinking she didn't need them. After discussing risks, benefits and alternative treatment options, pt did agree to re-start clozaril but only low dose. Given that pt continued to present as gravely disable due to paranoid delusions, petition for court was file for involuntary treatment. However, during court hearing, petition was denied and pt was discharged with plan to continue OP psychiatric treatment. After court, pt declined leaving the unit and did not fully seem to understand what court was about. She asked this fiction and nonfiction writer prose if she could stay. However, based on legal terms and section [address], pt was discharged given crisis information if she wanted to be readmitted. There were no incidences of disruptive behaviors nor use of restraints. c Status at Discharge Cognitive/behavioral status at discharge: continue to present with paranoid delusions, although less hypervigilant. No SI/HI. Functional status at discharge: independent ambulation Overall status at discharge: patient is progressing back to baseline Time Spent with Patient Time attestation: Total time spent providing and/or coordinating discharge services: Time spent: Greater than 30 minutes Discharge Plan Discharge Patient Disposition: Home, Self-Care Discharge Diagnosis: schizoaffective disorder Referrals: Physician,Unknown [Primary Care Provider] - 1 Week Discharge Medications: New metformin 500 mg Tablet 500 mg PO BIDWM Qty: 60 RF: 0 trazodone 50 mg Tablet 50 mg PO BEDTIME PRN (Reason: Insomnia) Qty: 14 RF: 0 lithium carbonate 300 mg Tablet Extended Release 300 mg PO BID Qty: 30 RF: 0 clozapine 25 mg Tablet 50 mg PO BEDTIME Qty: 14 RF: 0 Continued lisinopril 10 mg tablet 1 tab PO QAM RF: 0 Discontinued olanzapine 5 mg tablet 1 tab PO BEDTIME RF: 0 Discharge Orders: Discharge Order (Routine); Ordered 12/03/20 Ordered By: Regina Lackey Diet: diabetic diet Activity on Discharge: As tolerated Stand Alone Forms: Patient Portal Discharge page, Community Support Care Plan Goals: 1. maintain mood 2. no self harm or harm to others Health Concerns: 1. follow up with PCP re: diabetes, HTN Plan of Treatment: 1. call 911 in event of emergency 2. take medications as prescribed Assessment: Pt is less guarded, continues with paranoid/persecutory delusions. Discharge Date/Time: 12/04/20 10:55
== END 2020-12-04 10:55 | disposition home or self-care (01) | DRG 885 ==
LOC: HO.ED 03:18 → HO.PADLT16 12:51
PROVIDERS: Clinical Nurse Specialist Psychiatric/Mental Health, Adult; Admitting Provider Psychiatry & Neurology Psychiatry; Emergency Provider Student in an Organized Health Care Education/Training Program; Visit Provider Psychiatry & Neurology Psychiatry
DX: F25.0 Schizoaffective disorder, bipolar type (principal); N39.0 Urinary tract infection, site not specified; I10 Essential (primary) hypertension; E11.9 Type 2 diabetes mellitus without complications; F17.210 Nicotine dependence, cigarettes, uncomplicated; Z71.6 Tobacco abuse counseling; Z20.822 Contact with and (suspected) exposure to COVID-19; Z79.899 Other long term (current) drug therapy
CPT/HCPCS: 36415; 80048; 80178; 80307; 81001; 82947; 83036; 85025; 87086; 87088; 87186; 87635; 93005; 99223; 99232; 99285

== ENCOUNTER 2020-12-24 16:45 | Inpatient (IN) | payer MEDICARE, MEDICAID, SELFPAY ==
[2020-12-24 16:53] VITALS: BP 130/71; PULSE 90; O2SAT 96
--- NOTE | 2020-12-24 16:53 | ED.PSYCH ---
HPI - Psych General Chief Complaint: Psychiatric Symptoms Stated Complaint: unknown Time Seen by Provider: 12/24/20 16:50 Source: patient and EMS Mode of arrival: EMS Limitations: altered mental status History of Present Illness HPI Narrative: 55-year-old female presents via EMS for psychiatric evaluation with possible admission. Patient is disorganized, difficult to understand, is delusional and paranoid. Has not been taking her medications, and is unable to care for herself. MD complaint: feels depressed Onset (ago): unknown Duration: constant History of same: Yes Context: not taking psychiatric medications Associated psychiatric symptoms: depression and delusions Associated symptoms: confusion Related Data Previous Rx's Medication Instructions Recorded clozapine 25 mg tablet 50 mg PO BEDTIME #14 tab 12/03/20 lithium carbonate 300 mg 300 mg PO BID #30 tab 12/03/20 tablet,extended release metformin 500 mg tablet 500 mg PO BIDWM #60 tab 12/03/20 trazodone 50 mg tablet 50 mg PO BEDTIME PRN #14 tab 12/03/20 Allergies Allergy/AdvReac Type Severity Reaction Status Date / Time No Known Allergies Allergy Unverified 01/11/20 16:04 [No Known Allergies*] Review of Systems Review of Systems: Yes Unobtainable due to mental status PMFSH Past Medical History Attestation statement: The following information was validated with the patient. Source: old records reviewed Medical History Schizoaffective disorder, bipolar type Social History Social History Household Members: Friend(s) Housing: House Do you presently have visiting nurse or other home services: No Patient Tobacco Use Status: Never used Tobacco Advance Directives: No Advance Directives Information Provided: No service: No Sexual orientation: Don't Know Physical Exam Vital Signs: Vital Signs: Last Vital Signs Temp 98.9 F 12/24/20 23:49 Pulse 71 12/24/20 23:49 Resp 16 12/24/20 23:49 BP 152/84 H 12/24/20 23:49 Pulse Ox 96 12/24/20 23:49 Body Mass Index 25.0 Appearance: Alert. Oriented to self. Severe psychological distress. Disheveled. Slow to respond. Head: Normal external exam. Normocephalic. Atraumatic. No Diehl signs noted. No raccoon eyes noted Eyes: PERRLA. EOMI. Conjunctiva and sclera normal. Eyelids normal. ENT: TM's Normal. Pharynx normal. Uvula midline. Moist mucous membranes. No drooling noted. No muffled voice noted. Neck: Normal inspection. Neck supple. No adenopathy. Thyroid Normal. No meningeal signs. No neck mass noted. CVS: Normal heart rate and rhythm. Heart sound normal. No murmurs noted. Pulses equal to all extremities. Respiratory: No respiratory distress. Painless inspiration. Breath sounds normal. No wheezes/rales/rhonchi noted. Chest nontender. No accessory muscle usage noted or decreased air movement noted. Abdomen: Soft and nontender. Bowel sounds normal in all 4 quadrants. No distention noted. No organomegaly noted. No visible injury noted. Back: No CVA tenderness. Full range of motion noted. Skin: Skin warm and dry. Normal skin color. Normal skin turgor. No rashes/lesions/lacerations noted. Extremities: No lower extremity edema. Extremities exhibit normal range of motion. Extremities nontender. Neuro: cranial nerves 2-12 intact, no focal neural deficits, strength 5/5 to all extremities, No motor deficit. No sensory deficit. Course Course Course Narrative: 55-year-old female with schizoaffective bipolar disorder presents with delusions, psychosis, possible troy, medication noncompliance. Patient states to feel unwell, making poor eye contact, speaking softly and slowly. Patient is not forthcoming with information, I do not feel that this is behavioral I feel that she is severe psychiatric distress and cannot manage answering questions at this time. Patient is compliant with physical exam. Will order crisis consult, labs, section 12. Physician observation started at this time. MDM - Psych Differential Diagnosis Differential diagnosis: Likely acute psychosis, bipolar disorder, depression and schizoaffective disorder Medical Records Attestation: I reviewed the patient's medical records. Lab Data Attestation: I reviewed the patient's lab results. Result diagrams: 12/24/20 17:55 12/24/20 17:55 Labs: Lab Results 12/24/20 12/24/20 12/24/20 Range/Units 17:55 17:55 17:55 WBC 10.6 (4.8-10.8) X10*3/uL RBC 4.65 (4.20-5.50) X10*6/uL Hgb 12.4 (12.0-16.0) g/dl Hct 38.4 (37-47) % MCV 82.6 (80-98) fL MCH 26.7 L (27.0-33.0) pg MCHC 32.3 (31.0-35.0) g/dl RDW 13.1 (11.0-16.0) % Plt Count 259 (160-400) X10*3/uL MPV 10.2 (9.4-12.3) fL Immature Gran % (Auto) 0.8 H (0.0-0.4) % Neut % (Auto) 72.3 (45-73) % Lymph % (Auto) 19.6 L (20-40) % [place] % (Auto) 5.8 (2-11) % Eos % (Auto) 1.1 (0-4) % Baso % (Auto) 0.4 (0-2) % Lymph # (Auto) 2.1 (1.2-4.9) X10*3/uL [place] # (Auto) 0.6 (0.1-1.2) X10*3/uL Eos # (Auto) 0.1 (0.0-0.4) X10*3/uL Baso # (Auto) 0.0 (0.0-0.2) X10*3/uL Abs Immat Gran (auto) 0.08 H (0.00-0.03) X10*3/uL Absolute Neuts (auto) 7.6 (2.0-8.3) X10*3/uL Absolute Nucleated RBC 0.000 (0.0-0.012) X10*3/uL Nucleated RBC % (auto) 0.0 (0.0-0.2) /100WBC Sodium 138 (135-145) mmol/L Potassium 3.4 D (3.3-5.1) mmol/L Chloride 103 (96-108) mmol/L Carbon Dioxide 22 (22-29) mmol/L Anion Gap 16 (12-20) BUN 6 L (9-16) mg/dL Creatinine 0.70 (0.5-1.4) mg/dL Estim Creat Clear Calc 89.3 Estimated GFR > 60 Random Glucose 199 H (60-115) mg/dL Calcium 9.5 (8.4-10.2) mg/dL Total Bilirubin 0.4 (0.0-1.0) mg/dL AST 20 (5-31) U/L ALT 29 (0-31) U/L Alkaline Phosphatase 71 (39-117) U/L Total Protein 7.0 (6.5-8.0) g/dL Albumin 4.2 (3.5-5.0) g/dL Salicylates < 5.0 L (15-30) mg/dL Acetaminophen < 1 (<30) mcg/mL [place] (0.60-1.20) mmol/L Ethyl Alcohol < 10 mg/dL COVID-19 (MY) (Negative) COVID-19 Clin Com 12/24/20 12/24/20 Range/Units 17:55 20:54 WBC (4.8-10.8) X10*3/uL RBC (4.20-5.50) X10*6/uL Hgb (12.0-16.0) g/dl Hct (37-47) % MCV (80-98) fL MCH (27.0-33.0) pg MCHC (31.0-35.0) g/dl RDW (11.0-16.0) % Plt Count (160-400) X10*3/uL MPV (9.4-12.3) fL Immature Gran % (Auto) (0.0-0.4) % Neut % (Auto) (45-73) % Lymph % (Auto) (20-40) % [place] % (Auto) (2-11) % Eos % (Auto) (0-4) % Baso % (Auto) (0-2) % Lymph # (Auto) (1.2-4.9) X10*3/uL [place] # (Auto) (0.1-1.2) X10*3/uL Eos # (Auto) (0.0-0.4) X10*3/uL Baso # (Auto) (0.0-0.2) X10*3/uL Abs Immat Gran (auto) (0.00-0.03) X10*3/uL Absolute Neuts (auto) (2.0-8.3) X10*3/uL Absolute Nucleated RBC (0.0-0.012) X10*3/uL Nucleated RBC % (auto) (0.0-0.2) /100WBC Sodium (135-145) mmol/L Potassium (3.3-5.1) mmol/L Chloride (96-108) mmol/L Carbon Dioxide (22-29) mmol/L Anion Gap (12-20) BUN (9-16) mg/dL Creatinine (0.5-1.4) mg/dL Estim Creat Clear Calc Estimated GFR Random Glucose (60-115) mg/dL Calcium (8.4-10.2) mg/dL Total Bilirubin (0.0-1.0) mg/dL AST (5-31) U/L ALT (0-31) U/L Alkaline Phosphatase (39-117) U/L Total Protein (6.5-8.0) g/dL Albumin (3.5-5.0) g/dL Salicylates (15-30) mg/dL Acetaminophen (<30) mcg/mL [place] < 0.10 L (0.60-1.20) mmol/L Ethyl Alcohol mg/dL COVID-19 (MY) Negative (Negative) COVID-19 Clin Com See Note Discharge Plan Discharge Clinical Impression: Schizoaffective disorder, bipolar type, Acute psychosis Depression Qualifiers: Depression Type: major depressive disorder Major depression recurrence: recurrent Active/Remission status: currently active Major depression episode severity: severe Psychotic features: with psychotic features Qualified Code(s): F33.3 - Major depressive disorder, recurrent, severe with psychotic symptoms Prescriptions: No Action metformin 500 mg Tablet 500 mg PO BIDWM Qty: 60 RF: 0 trazodone 50 mg Tablet 50 mg PO BEDTIME PRN (Reason: Insomnia) Qty: 14 RF: 0 lithium carbonate 300 mg Tablet Extended Release 300 mg PO BID Qty: 30 RF: 0 clozapine 25 mg Tablet 50 mg PO BEDTIME Qty: 14 RF: 0
[2020-12-24 16:57] VITALS: BP 187/86; PULSE 90; RESP 18; O2SAT 94; BMI 25.0
[2020-12-24 17:59] LABS: MANUAL DIFF FLAG NO
[2020-12-24 18:15] LABS: Basophils Percent Auto 0.4 % (0-2); Eosinophils Absolute Auto 0.1 X10*3/uL (0.0-0.4); Eosinophils Percent Auto 1.1 % (0-4); Hematocrit 38.4 % (37-47); Hemoglobin 12.4 g/dl (12.0-16.0); Imm Gran Abs Auto 0.08 X10*3/uL (0.00-0.03); Imm Gran Pct Auto 0.8 % (0.0-0.4); Lymphocytes Absolute Auto 2.1 X10*3/uL (1.2-4.9); Lymphocytes Percent Auto 19.6 % (20-40); Mean Corpuscular HGB Conc 32.3 g/dl (31.0-35.0); Mean Corpuscular Hemoglobin 26.7 pg (27.0-33.0); Mean Corpuscular Volume 82.6 fL (80-98); Mean Platelet Volume 10.2 fL (9.4-12.3); Monocytes Absolute Auto 0.6 X10*3/uL (0.1-1.2); Monocytes Percent Auto 5.8 % (2-11); Neutrophils Absolute Auto 7.6 X10*3/uL (2.0-8.3); Neutrophils Percent Auto 72.3 % (45-73); Platelet Count 259 X10*3/uL (160-400); Red Blood Count 4.65 X10*6/uL (4.20-5.50); Red Cell Distribution Width 13.1 % (11.0-16.0); White Blood Count 10.6 X10*3/uL (4.8-10.8)
[2020-12-24 18:25] LABS: Ethanol < 10 mg/dL
[2020-12-24 18:29] LABS: Alanine Aminotransferase 29 U/L (0-31); Albumin Level 4.2 g/dL (3.5-5.0); Alkaline Phosphatase 71 U/L (39-117); Anion Gap 16 (12-20); Aspartate Amino Transferase 20 U/L (5-31); Bilirubin Total 0.4 mg/dL (0.0-1.0); Blood Urea Nitrogen 6 mg/dL (9-16); Calcium 9.5 mg/dL (8.4-10.2); Carbon Dioxide 22 mmol/L (22-29); Chloride 103 mmol/L (96-108); Creatinine Clr Calc Pharmacy 89.3; Estimated Glomerular Filt Rate > 60; Glucose Random 199 mg/dL (60-115); Potassium 3.4 mmol/L (3.3-5.1); Sodium 138 mmol/L (135-145)
[2020-12-24 18:36] LABS: Acetaminophen LAB < 1 mcg/mL (<30)
[2020-12-24 18:38] LABS: Salicylate < 5.0 mg/dL (15-30)
[2020-12-24 20:59] LABS: Lithium < 0.10 mmol/L (0.60-1.20)
--- NOTE | 2020-12-24 21:07 | PC.NURSE ---
DIMAS called/spoke with Leann, confirmed patient's disposition, section 12 in patient bed search
[2020-12-24 21:18] LABS: COVID-19 Test Negative (Negative)
[2020-12-24 23:49] VITALS: BP 152/84; PULSE 71; RESP 16; TEMP 37.2; O2SAT 96
--- NOTE | 2020-12-25 06:20 | PC.NURSE ---
Patient did not sleep at all, reported she sleeps during the day mostly when she is at home, mostly sat on her bed, behavior and quiet, thought process disorganized, patient has been off her medication over two weeks, psych consult for med review ordered, patient was sent to ED by N with disposition section 12 inpatient bed search, patient was unable to provide urine sample at this time, will continue to monitor.
--- NOTE | 2020-12-25 07:24 | PC.NURSE ---
patient briefly at rest upon t/w's arrival now wandering unit somewhat watching staff behavior.
[2020-12-25 09:08] VITALS: BP 154/85; PULSE 78; TEMP 37.2; O2SAT 98
--- NOTE | 2020-12-25 09:32 | ECG_ITS ---
Test Reason : [employer] Works Blood Pressure : / mmHG Vent. Rate : 080 BPM Atrial Rate : 080 BPM P-R Int : 132 ms QRS Dur : 086 ms QT Int : 368 ms P-R-T Axes : 006 -19 -15 degrees QTc Int : 424 ms Normal sinus rhythm Moderate voltage criteria for LVH, may be normal variant Nonspecific T wave abnormality Abnormal ECG When compared with ECG of 22-NOV-2020 09:14, T wave inversion now evident in Inferior leads T wave inversion now evident in Anterior leads Referred By: Geri Mullins Electronically Signed By:DANNI JORGE
[2020-12-25 14:00] VITALS: RESP 18
[2020-12-25 15:56] VITALS: BP 143/82; PULSE 80; RESP 16; TEMP 37.2; O2SAT 92
--- NOTE | 2020-12-25 16:34 | PC.NURSE ---
security called to transport patient with nursing staff to
--- NOTE | 2020-12-25 16:37 | HE.PHANOTE ---
UNABLE TO VERIFY WHEN PATIENT LAST TOOK CLOZARIL DOSE. REINITIATING THERAPY AT 25 MG PO BEDTIME.
[2020-12-25 16:46] VITALS: BP 161/77; PULSE 85; RESP 18; O2SAT 97
--- NOTE | 2020-12-25 19:05 | PC.ADMIT ---
PT. IS A 55 YEAR OLD WHITE WELSH SPEAKING FEMALE WHO PRESENTS FROM [facility] AT APPROX. 16:40 TO [facility] ON A SECTION 12 STATUS. PT. IS COVID NEG., UTOX NEG. FOR ALL SUBSTANCES. PT. HAS A HX OF PSYCHIATRIC ADMISSIONS FOR ABOUT 10 YEARS. PT. WAS EVALUATED BY [facility] CRISIS TEAM IN THE COMMUNITY FOR SYMPTOMS OF DECOMPENSATION MARKED BY PARANOIA, DELUSIONS, AND DISORGANIZED BEHAVIOR SECONDARY TO NONCOMPLIANCE WITH HER MEDICATIONS. HER SLEEP AND APPETITE HAVE ALSO BEEN POOR. PT. WAS RECENTLY ADMITTED TO [facility] FOR 2 WEEKS FOLLOWING SIMILAR PRESENTATION. PT. WAS PARANOID AND GUARDED DURING TRANSPORT FROM [facility] TO . WHEN A [facility] VISITOR TRIED TO GET ON THE SAME ELEVATOR FOR A RIDE PT. REACTED AND TRIED TO GET OUT OF HER WHEELCHAIR. PT. HAD A SCARED INTENSE LOOK AND FRANTIC AFFECT. VISITOR DID NOT TAKE THE ELEVATOR RIDE, WHICH CALMED PT. PT. WAS COOPERATIVE BUT VERY PRECISE DURING ADMISSION PROCESS WHAT AND WHAT NOT SHE WANTS TO SIGN. SHE DID NOT WANT HER ROOM DOOR TO BE CLOSED. SHE DENIED SI, AVH, DEPRESSION, ANXIETY AND PAIN. I NEED CLOZERIL, THAT'S WHAT I TAKE, 50 MG . SHE REFUSED HER SCHEDULED 17:00 METFORMIN. MEDICATION ORDERS WERE RECEIVED BY NARCISO BEE NP, SAFETY CHECK ORDER IS EVERY 15 MIN. PT. IS NOT A SMOKER, SHE REFUSED THE OFFERED FLU VACCINE. PT. HAD A UNIT TOUR, SHE ATE DINNER AND WAS COOPERATIVE WITH VS. PT. REPORTED TO FEEL SAFE.
[2020-12-25] MEDS: cloZAPine 25 MG TABLET PO (20:30)
[2020-12-25 21:27] VITALS: BP 152/69; PULSE 76
[2020-12-26 08:40] LABS: Estimated Average Glucose 203 mg/dL; Hemoglobin A1c % 8.7 %
[2020-12-26] MEDS: Lithium Carbonate ER 300 MG TABLET.ER PO (08:53)
[2020-12-26 09:00] VITALS: BP 150/68; PULSE 67
[2020-12-26 09:09] LABS: Cholesterol 135 mg/dL; HDL Cholesterol 33 mg/dL; LDL Cholesterol Calculated 74 mg/dl; Triglycerides 142 mg/dL
[2020-12-26 10:43] LABS: Folate 8.5 ng/mL (> or = 4.0); Vitamin B12 960 pg/mL (200-900)
--- NOTE | 2020-12-26 16:11 | HO.PSYADMNOT ---
HPI Chief Complaint: Paranoia Sources of Information: patient interviewed, chart reviewed and crisis/core team assessment reviewed HPI Subjective Notes: Conditional Voluntary Narrative: Ms. Larson is a 55 year-old woman with hx of schizoaffective disorder, bipolar type who was brought to [facility] ED after sister called 911 reporting pt was increasingly more paranoid, afraid to leave the house, not taking medications, standing next to roommate watching him at night, breaking electronic at home as she thought she is being monitored. Pt was recently discharged from [facility] M[facility] after petition for involuntary treatment was denied by jewel oliving machine operator. Pt was discharged on 12/01/20. Note that after court told Ms. Walls that she can leave hospital, pt was confused and was declining to leave the unit. She declined taking a taxi to go back home because she was very suspicious and paranoid. Finally sister had to come and pick her up. On the unit, Ms. Larson presents as very guarded and suspicious. She reports something happen with her medications and were not given to her sister. She is not fully forthcoming and careful about words she uses. She states something very concerning is happening, look what happen to my medications. Pt then states maybe FBI can find out why she did not get medications. Per sister, pt refuse taking medications at home. Pt denies SI/HI. She has been mostly in her room due to paranoia. Past Psychiatric History: IP: Three admits- 10 years ago to [facility]; 20 years ago to a few hospitals in [place] (was transferred a few times) OP Psychopharm: Dieter López APRN Medical Evaluation Reviewed: Yes [facility] Medical History Schizoaffective disorder, bipolar type Diagnostics Vital Signs (24Hr): Vital Signs - 24 hr 12/25/20 16:46 12/25/20 21:27 12/26/20 09:00 Pulse Rate 85 76 67 Respiratory Rate 18 Blood Pressure 161/77 H 152/69 H 150/68 H Pulse Oximetry 97 Body Mass Index 25.0 Labs Results: 12/24/20 17:55 12/24/20 17:55 Labs: Laboratory Results - last 48 hr 12/24/20 12/24/20 12/24/20 17:55 17:55 17:55 WBC 10.6 RBC 4.65 Hgb 12.4 Hct 38.4 MCV 82.6 MCH 26.7 L MCHC 32.3 RDW 13.1 Plt Count 259 MPV 10.2 Immature Gran % (Auto) 0.8 H Neut % (Auto) 72.3 Lymph % (Auto) 19.6 L [place] % (Auto) 5.8 Eos % (Auto) 1.1 Baso % (Auto) 0.4 Lymph # (Auto) 2.1 [place] # (Auto) 0.6 Eos # (Auto) 0.1 Baso # (Auto) 0.0 Abs Immat Gran (auto) 0.08 H Absolute Neuts (auto) 7.6 Absolute Nucleated RBC 0.000 Nucleated RBC % (auto) 0.0 Sodium 138 Potassium 3.4 D Chloride 103 Carbon Dioxide 22 Anion Gap 16 BUN 6 L Creatinine 0.70 Estim Creat Clear Calc 89.3 Estimated GFR > 60 Random Glucose 199 H Estimat Average Glucose Hemoglobin A1c % Calcium 9.5 Total Bilirubin 0.4 AST 20 ALT 29 Alkaline Phosphatase 71 Total Protein 7.0 Albumin 4.2 Triglycerides Cholesterol LDL Cholesterol, Calc HDL Cholesterol Vitamin B12 Folate Salicylates < 5.0 L Acetaminophen < 1 [place] Ethyl Alcohol < 10 COVID-19 (MY) COVID-19 [employer] 12/24/20 12/24/20 12/26/20 17:55 20:54 08:10 WBC RBC Hgb Hct MCV MCH MCHC RDW Plt Count MPV Immature Gran % (Auto) Neut % (Auto) Lymph % (Auto) [place] % (Auto) Eos % (Auto) Baso % (Auto) Lymph # (Auto) [place] # (Auto) Eos # (Auto) Baso # (Auto) Abs Immat Gran (auto) Absolute Neuts (auto) Absolute Nucleated RBC Nucleated RBC % (auto) Sodium Potassium Chloride Carbon Dioxide Anion Gap BUN Creatinine Estim Creat Clear Calc Estimated GFR Random Glucose Estimat Average Glucose 203 Hemoglobin A1c % 8.7 Calcium Total Bilirubin AST ALT Alkaline Phosphatase Total Protein Albumin Triglycerides Cholesterol LDL Cholesterol, Calc HDL Cholesterol Vitamin B12 Folate Salicylates Acetaminophen [place] < 0.10 L Ethyl Alcohol COVID-19 (MY) Negative COVID-19 Clin Com See Note 12/26/20 12/26/20 08:10 08:10 WBC RBC Hgb Hct MCV MCH MCHC RDW Plt Count MPV Immature Gran % (Auto) Neut % (Auto) Lymph % (Auto) [place] % (Auto) Eos % (Auto) Baso % (Auto) Lymph # (Auto) [place] # (Auto) Eos # (Auto) Baso # (Auto) Abs Immat Gran (auto) Absolute Neuts (auto) Absolute Nucleated RBC Nucleated RBC % (auto) Sodium Potassium Chloride Carbon Dioxide Anion Gap BUN Creatinine Estim Creat Clear Calc Estimated GFR Random Glucose Estimat Average Glucose Hemoglobin A1c % Calcium Total Bilirubin AST ALT Alkaline Phosphatase Total Protein Albumin Triglycerides 142 Cholesterol 135 LDL Cholesterol, Calc 74 HDL Cholesterol 33 Vitamin B12 960 H Folate 8.5 Salicylates Acetaminophen [place] Ethyl Alcohol COVID-19 (MY) COVID-19 Clin Com Meds/Allergies Meds Home Medications Acetaminophen (Acetaminophen 325 Mg Tablet) 650 mg PO Q6H PRN PRN Reason: pain Al Hydroxide/Mg Hydroxide (Magnesium Hydrox/Alum Hydrox 30 Ml Oral.Susp) 30 ml PO Q6H PRN PRN Reason: Heartburn/Nausea Clozapine (Clozapine 25 Mg Tablet) 50 mg PO BEDTIME [facility] Last Admin: 12/27/20 21:02 Dose: 50 mg Documented by: Hydroxyzine HCl (Hydroxyzine Hcl 25 Mg Tablet) 25 mg PO Q6H PRN PRN Reason: Anxiety [place] Carbonate ([place] Carbonate Er 300 Mg Tablet.Er) 300 mg PO BID [facility] Last Admin: 12/27/20 21:02 Dose: 300 mg Documented by: Magnesium Hydroxide (Milk Of Magnesia 30 Ml Oral.Susp) 30 ml PO DAILY PRN PRN Reason: Constipation Metformin HCl (Metformin Hcl 500 Mg Tablet) 500 mg PO BIDWM [facility] Last Admin: 12/27/20 18:29 Dose: Not Given Documented by: Trazodone HCl (Trazodone Hcl 50 Mg Tablet) 50 mg PO BEDTIME PRN PRN Reason: Insomnia Allergies Allergies Allergy/AdvReac Type Severity Reaction Status Date / Time No Known Allergies Allergy Unverified 01/11/20 16:04 [No Known Allergies*] Mental Status Exam Mental Status Exam Narrative: Appearance: wearing hospital gown, poor hygiene in NAD Behavior:guarded suspicious psychomotor:some retardation noted Speech:clear, delayed response rate, spontaneous Thought process:single word responses, at times derailment Thought content:paranoid delusions, suspicious Mood: okay Affect: fearful, anxious SI:denies HI:denies VH/AH:appears responding to internal stimuli Delusions:paranoid delusions Insight/judgment:poor x 2. Memory/cog: alert, oriented x 3 grossly impaired secondary to psychiatric symptoms. Assessment & Plan Assessment & Plan (1) Schizoaffective disorder, bipolar type: Status: Acute Code(s): F25.0 - Schizoaffective disorder, bipolar type Assessment and Plan: Ms. Larson is a 55 year-old woman with hx of schizoaffective disorder who was brought to [facility] after sister called 911 given that pt presented as paranoid, suspicious, not caring for self, breaking electronics at home. Pt was discharged from M3 after petition for involuntary treatment was denied by jewel oliving machine operator on 12/04. PLAN 1. Admit to M5 2. Start clozaril 25 mg po qhs. 3. Obtain collateral information 4. Aftercare planning. Reason for continued inpatient stay Substantial Risk for: inability to function
[2020-12-26 17:24] VITALS: BP 147/65; PULSE 86; RESP 18; TEMP 36.1; O2SAT 98
[2020-12-26] MEDS: cloZAPine 25 MG TABLET 50 MG PO (20:09)
[2020-12-27 06:00] VITALS: BP 173/82; PULSE 78
--- NOTE | 2020-12-27 08:11 | HO.PSYCHPN ---
Subjective Subjective Date of Service: 12/28/20 Reason For Visit: Paranoia Subjective Notes: Conditional Voluntary Interim History: Pt continues to present as very guarded, mostly in her room, disheveled. She denies SI/HI. She denies VH/AH but appears internally preoccupied. She is not taking medications for HTN nor DM. Medication Compliance: Intermittent Side effects from medications: No Review of Systems Review of Systems Yes Unobtainable due to mental status Mental Status Exam Mental Status Exam Narrative: Appearance: wearing hospital gown, poor hygiene in NAD Behavior:guarded suspicious psychomotor:some retardation noted Speech:clear, delayed response rate, spontaneous Thought process:single word responses, at times derailment Thought content:paranoid delusions, suspicious Mood: okay Affect: fearful, anxious SI:denies HI:denies VH/AH:appears responding to internal stimuli Delusions:paranoid delusions Insight/judgment:poor x 2. Memory/cog: alert, oriented x 3 grossly impaired secondary to psychiatric symptoms. Diagnostics Vital Signs (24Hr): Vital Signs - 24 hr 12/27/20 20:05 12/28/20 06:00 Temperature 98.5 F 97.5 F Pulse Rate 90 82 Respiratory Rate 16 18 Blood Pressure 136/87 162/80 H Pulse Oximetry 96 96 Body Mass Index 25.0 Labs Results: 12/24/20 17:55 12/24/20 17:55 Labs: Laboratory Results - last 48 hr 12/26/20 12/26/20 12/26/20 08:10 08:10 08:10 Estimat Average Glucose 203 Hemoglobin A1c % 8.7 Triglycerides 142 Cholesterol 135 LDL Cholesterol, Calc 74 HDL Cholesterol 33 Vitamin B12 960 H Folate 8.5 Medications Medications Current Medications Generic Name Dose Route Start Last Admin Trade Name Freq PRN Reason Stop Dose Admin Acetaminophen 650 mg 12/25/20 08:08 Acetaminophen 325 Mg Tablet PO Q6H PRN pain Al Hydroxide/Mg Hydroxide 30 ml 12/25/20 15:52 Magnesium Hydrox/Alum Hydrox 30 Ml Oral.Susp PO Q6H PRN Heartburn/Nausea Clozapine 50 mg 12/26/20 21:00 12/27/20 21:02 Clozapine 25 Mg Tablet PO 50 mg BEDTIME SARMAD Administration Hydroxyzine HCl 25 mg 12/25/20 15:52 Hydroxyzine Hcl 25 Mg Tablet PO Q6H PRN Anxiety [place] Carbonate 300 mg 12/25/20 21:00 12/27/20 21:02 [place] Carbonate Er 300 Mg Tablet.Er PO 300 mg BID SARMAD Administration Magnesium Hydroxide 30 ml 12/25/20 15:52 Milk Of Magnesia 30 Ml Oral.Susp PO DAILY PRN Constipation Metformin HCl 500 mg 12/25/20 17:00 12/27/20 18:29 Metformin Hcl 500 Mg Tablet PO Not Given BIDWM SARMAD Trazodone HCl 50 mg 12/25/20 16:05 Trazodone Hcl 50 Mg Tablet PO BEDTIME PRN Insomnia Allergies Allergies Allergy/AdvReac Type Severity Reaction Status Date / Time No Known Allergies Allergy Unverified 01/11/20 16:04 [No Known Allergies*] Assessment & Plan Assessment & Plan (1) Schizoaffective disorder, bipolar type: Status: Acute Code(s): F25.0 - Schizoaffective disorder, bipolar type Assessment and Plan: Ms. Larson is a 55 year-old woman with hx of schizoaffective disorder who was [place] [facility] [place] sister called 911 given that pt presented as paranoid, suspicious, not caring for self, breaking electronics at home. Pt was discharged from M3 after petition for involuntary treatment was denied by magisterial district judge on 12/04. PLAN 1. Admit to M5 2. Increase clozaril 50 mg po qhs 12/27/20. 3. Obtain collateral information 4. Aftercare planning. Greater than 50% of the session was spent on counseling and/or coordination of care Reason for contiued inpatient stay Substantial Risk for: inability to function
[2020-12-27] MEDS: Lithium Carbonate ER 300 MG TABLET.ER PO ×2 (08:47→21:02)
--- NOTE | 2020-12-27 09:25 | PC.NURSE ---
pt refusing POC and metformin
[2020-12-27 20:05] VITALS: BP 136/87; PULSE 90; RESP 16; TEMP 36.9; O2SAT 96
[2020-12-27] MEDS: cloZAPine 25 MG TABLET 50 MG PO (21:02)
[2020-12-28 06:00] VITALS: BP 162/80; PULSE 82; RESP 18; TEMP 36.4; O2SAT 96
[2020-12-28] MEDS: Lithium Carbonate ER 300 MG TABLET.ER PO (08:27)
--- NOTE | 2020-12-28 13:02 | P.PNPSI_ITS ---
Subjective Subjective Date of Service: 12/28/20 Reason For Visit: Paranoia Interim History: chart reviewed. Has been guarded, poor self-care staying in bed. With senior mortgage underwriter does have a restricted affect and poor self-care. Reports she is hopeful that she can go home and work with her treatment team around this. Does endorse feeling suspicious of people outside of her room and feeling sc attered at times. Overall though reports feeling supported and safe with staff. Does endorse spending most of her time in her room. Denied depression. Denied SI. Denies hallucinations. Denies concerns regarding Clozaril was just started and being titrated. Medication Compliance: Yes Side effects from medications: No Review of Systems Acute medical concerns: No Review of Systems Review of Systems Noncontributory Mental Status Exam Mental Status Exam Narrative: seen in room. Hospital clothing. Poor self-care. Organized. Restricted affect. Denied SI or HI. Denies hallucinations. Is guarded. Insight and judgment okay Diagnostics Vital Signs (24Hr): Vital Signs - 24 hr 12/27/20 20:05 12/28/20 06:00 Temperature 98.5 F 97.5 F Pulse Rate 90 82 Respiratory Rate 16 18 Blood Pressure 136/87 162/80 H Pulse Oximetry 96 96 Body Mass Index 25.0 Labs Results: 12/24/20 17:55 12/24/20 17:55 Medications Medications Current Medications Generic Name Dose Route Start Last Admin Trade Name Freq PRN Reason Stop Dose Admin Acetaminophen 650 mg 12/25/20 08:08 Acetaminophen 325 Mg Tablet PO Q6H PRN pain Al Hydroxide/Mg Hydroxide 30 ml 12/25/20 15:52 Magnesium Hydrox/Alum Hydrox 30 Ml Oral.Susp PO Q6H PRN Heartburn/Nausea Clozapine 75 mg 12/28/20 21:00 Clozapine 25 Mg Tablet PO BEDTIME SARMAD Hydroxyzine HCl 25 mg 12/25/20 15:52 Hydroxyzine Hcl 25 Mg Tablet PO Q6H PRN Anxiety [place] Carbonate 300 mg 12/25/20 21:00 12/28/20 08:27 [place] Carbonate Er 300 Mg Tablet.Er PO 300 mg BID SARMAD Administration Magnesium Hydroxide 30 ml 12/25/20 15:52 Milk Of Magnesia 30 Ml Oral.Susp PO DAILY PRN Constipation Metformin HCl 500 mg 12/25/20 17:00 12/28/20 08:28 Metformin Hcl 500 Mg Tablet PO Not Given BIDWM SARMAD Trazodone HCl 50 mg 12/25/20 16:05 Trazodone Hcl 50 Mg Tablet PO BEDTIME PRN Insomnia Allergies Allergies Allergy/AdvReac Type Severity Reaction Status Date / Time No Known Allergies Allergy Unverified 01/11/20 16:04 [No Known Allergies*] Assessment & Plan Assessment & Plan (1) Schizoaffective disorder, bipolar type: Status: Acute Code(s): F25.0 - Schizoaffective disorder, bipolar type Assessment and Plan: Ms. Larson is a 55 year-old woman with hx of schizoaffective disorder who was brought [place] [facility] after sister called 911 given that pt presented as paranoid, suspicious, not caring for self, breaking electronics at home. Pt was discharged from M3 after petition for involuntary treatment was denied by budget report clerk on 12/04. PLAN 1. Admit to 2. Increase clozaril 50 mg po qhs 12/27/20. 3. Obtain collateral information 4. Aftercare planning. 12/28/2020: No changes to primary team treatment plan as Clozaril just started being titrated Greater than 50% of the session was spent on counseling and/or coordination of care Reason for contiued inpatient stay Substantial Risk for: inability to function and rapid decompensation
[2020-12-28 18:00] VITALS: BP 128/89; PULSE 100; TEMP 36.4
[2020-12-28] MEDS: cloZAPine 25 MG TABLET 75 MG PO (20:25)
[2020-12-29 06:00] VITALS: BP 155/74; PULSE 88; RESP 20; TEMP 36.3; O2SAT 97
[2020-12-29 06:45] LABS: Glucose, Whole Blood 173 mg/dL (60-115)
[2020-12-29] MEDS: Lithium Carbonate ER 300 MG TABLET.ER PO ×2 (08:10→20:01)
--- NOTE | 2020-12-29 11:57 | HO.PSYCHPN ---
Subjective Subjective Date of Service: 12/29/20 Reason For Visit: Paranoia Interim History: chart reviewed. Has been guarded, poor self-care staying in bed. Partial med adherence- told health science writer she likes to see meds in their packaging before taking them, rather than them being taken out first. Restricted affect and poor self-care. Feels like she is part of something, but doesnt understand what. Is paranoid and guarded. Reports she is hopeful that she can go home and work with her treatment team around this. Overall though reports feeling supported and safe with staff. Does endorse spending most of her time in her room. Denied depression. Denied SI. Denies hallucinations. Medication Compliance: Intermittent Side effects from medications: No Review of Systems Acute medical concerns: No Review of Systems Review of Systems Noncontributory Yes Unobtainable due to mental status Mental Status Exam Mental Status Exam Narrative: seen in room. Hospital clothing. Poor self-care. Organized. Restricted affect. Denied SI or HI. Denies hallucinations. Is guarded. Insight and judgment okay Diagnostics Vital Signs (24Hr): Vital Signs - 24 hr 12/28/20 18:00 12/29/20 06:00 Temperature 97.5 F 97.4 F Pulse Rate 100 88 Respiratory Rate 20 Blood Pressure 128/89 155/74 H Pulse Oximetry 97 Body Mass Index 25.0 Labs Results: 12/24/20 17:55 12/24/20 17:55 Labs: Laboratory Results - last 48 hr 12/29/20 06:31 POC Glucose 173 H Medications Medications Current Medications Generic Name Dose Route Start Last Admin Trade Name Freq PRN Reason Stop Dose Admin Acetaminophen 650 mg 12/25/20 08:08 Acetaminophen 325 Mg Tablet PO Q6H PRN pain Al Hydroxide/Mg Hydroxide 30 ml 12/25/20 15:52 Magnesium Hydrox/Alum Hydrox 30 Ml Oral.Susp PO Q6H PRN Heartburn/Nausea Clozapine 75 mg 12/28/20 21:00 12/28/20 20:25 Clozapine 25 Mg Tablet PO 50 mg BEDTIME SARMAD Administration Hydroxyzine HCl 25 mg 12/25/20 15:52 Hydroxyzine Hcl 25 Mg Tablet PO Q6H PRN Anxiety [place] Carbonate 300 mg 12/25/20 21:00 12/29/20 08:10 [place] Carbonate Er 300 Mg Tablet.Er PO 300 mg BID SARMAD Administration Magnesium Hydroxide 30 ml 12/25/20 15:52 Milk Of Magnesia 30 Ml Oral.Susp PO DAILY PRN Constipation Metformin HCl 500 mg 12/25/20 17:00 12/29/20 08:10 Metformin Hcl 500 Mg Tablet PO Not Given BIDWM SARMAD Trazodone HCl 50 mg 12/25/20 16:05 Trazodone Hcl 50 Mg Tablet PO BEDTIME PRN Insomnia Allergies Allergies Allergy/AdvReac Type Severity Reaction Status Date / Time No Known Allergies Allergy Unverified 01/11/20 16:04 [No Known Allergies*] Assessment & Plan Assessment & Plan (1) Schizoaffective disorder, bipolar type: Status: Acute Code(s): F25.0 - Schizoaffective disorder, bipolar type Assessment and Plan: Ms. Larson is a 55 year-old woman with hx of schizoaffective disorder who was brought to [facility] [place] after sister called 911 given that pt presented as paranoid, suspicious, not caring for self, breaking electronics at home. Pt was discharged from after petition for involuntary treatment was denied by bean picker machine operator on 12/04. PLAN 1. Admit to 2. Increase clozaril 50 mg po qhs 12/27/20. 3. Obtain collateral information 4. Aftercare planning. 12/29/2020: Open medications in fornt of patient. Otherwise no changes to primary team treatment plan as Clozaril just started being titrated Greater than 50% of the session was spent on counseling and/or coordination of care Reason for contiued inpatient stay Substantial Risk for: inability to function
[2020-12-29 18:00] VITALS: BP 143/80; PULSE 93; TEMP 36.8
[2020-12-29] MEDS: cloZAPine 25 MG TABLET 75 MG PO (20:01)
[2020-12-30 06:00] VITALS: BP 159/87; PULSE 82; RESP 18; TEMP 36.8; O2SAT 97
[2020-12-30] MEDS: Lithium Carbonate ER 300 MG TABLET.ER PO ×2 (08:49→20:11)
[2020-12-30 09:21] LABS: Creatinine Clr Calc Pharmacy 84.5; Estimated Glomerular Filt Rate > 60
--- NOTE | 2020-12-30 12:19 | HO.PSYCHPN ---
Subjective Subjective Date of Service: 12/30/20 Reason For Visit: Paranoia Interim History: Appears to be slightly less guarded. Appeared to have some more trust around nursing this morning and medications. Was adherent with medications- Likes to see them in the packet before they were opened. Self-care still limited and spends most of the time in her room. Denied depression. Denied SI. Denies hallucinations. insight and judgment improving Medication Compliance: Yes Side effects from medications: No Review of Systems Acute medical concerns: No Review of Systems Review of Systems Noncontributory Mental Status Exam Mental Status Exam Narrative: seen in room. Hospital clothing. Poor self-care. Organized. Restricted affect. Denied SI or HI. Denies hallucinations. Is guarded. Insight and judgment okay Diagnostics Vital Signs (24Hr): Vital Signs - 24 hr 12/29/20 18:00 12/30/20 06:00 Temperature 98.3 F 98.2 F Pulse Rate 93 82 Respiratory Rate 18 Blood Pressure 143/80 H 159/87 H Pulse Oximetry 97 Body Mass Index 25.0 Labs Results: 12/24/20 17:55 12/30/20 08:59 Labs: Laboratory Results - last 48 hr 12/29/20 12/30/20 06:31 08:59 Creatinine 0.74 Estim Creat Clear Calc 84.5 Estimated GFR > 60 POC Glucose 173 H Medications Medications Current Medications Generic Name Dose Route Start Last Admin Trade Name Freq PRN Reason Stop Dose Admin Acetaminophen 650 mg 12/25/20 08:08 Acetaminophen 325 Mg Tablet PO Q6H PRN pain Al Hydroxide/Mg Hydroxide 30 ml 12/25/20 15:52 Magnesium Hydrox/Alum Hydrox 30 Ml Oral.Susp PO Q6H PRN Heartburn/Nausea Clozapine 75 mg 12/28/20 21:00 12/29/20 20:01 Clozapine 25 Mg Tablet PO 75 mg BEDTIME SARMAD Administration Hydroxyzine HCl 25 mg 12/25/20 15:52 Hydroxyzine Hcl 25 Mg Tablet PO Q6H PRN Anxiety [place] Carbonate 300 mg 12/25/20 21:00 12/30/20 08:49 [place] Carbonate Er 300 Mg Tablet.Er PO 300 mg BID SARMAD Administration Magnesium Hydroxide 30 ml 12/25/20 15:52 Milk Of Magnesia 30 Ml Oral.Susp PO DAILY PRN Constipation Metformin HCl 500 mg 12/25/20 17:00 12/30/20 08:54 Metformin Hcl 500 Mg Tablet PO Not Given BIDWM SARMAD Trazodone HCl 50 mg 12/25/20 16:05 Trazodone Hcl 50 Mg Tablet PO BEDTIME PRN Insomnia Allergies Allergies Allergy/AdvReac Type Severity Reaction Status Date / Time No Known Allergies Allergy Unverified 01/11/20 16:04 [No Known Allergies*] Assessment & Plan Assessment & Plan (1) Schizoaffective disorder, bipolar type: Status: Acute Code(s): F25.0 - Schizoaffective disorder, bipolar type Assessment and Plan: Ms. Larson is a 55 year-old woman with hx of schizoaffective disorder who was brought to [facility] [place] after sister called 911 given that pt presented as paranoid, suspicious, not caring for self, breaking electronics at home. Pt was discharged from after petition for involuntary treatment was denied by ski lift attendant on 12/04. PLAN 1. Admit to 2. Increase clozaril 50 mg po qhs 12/27/20. 3. Obtain collateral information 4. Aftercare planning. 12/30/2020: Open medications in fornt of patient. Otherwise no changes to primary team treatment plan as Clozaril just started being titrated Greater than 50% of the session was spent on counseling and/or coordination of care Reason for contiued inpatient stay Substantial Risk for: inability to function
[2020-12-30 17:06] VITALS: BP 153/79; PULSE 85; RESP 17; TEMP 37.1
[2020-12-30] MEDS: cloZAPine 25 MG TABLET 75 MG PO (20:11)
[2020-12-31 06:00] VITALS: BP 124/67; PULSE 92; RESP 16; TEMP 36.6; O2SAT 96
[2020-12-31] MEDS: Lithium Carbonate ER 300 MG TABLET.ER PO ×2 (08:43→21:10)
--- NOTE | 2020-12-31 10:58 | PC.NURSE ---
Patient refused POC and scheduled Metformin. Medication teaching done. Patient verbalized understanding but states that she has never had an issue with high blood sugar. States she doesn't check glucose levels at home and does not take Metformin. Reported to charge nurse for review in Team.
--- NOTE | 2020-12-31 15:20 | HO.PSYCHPN ---
Subjective Subjective Date of Service: 01/01/21 Reason For Visit: Paranoia Subjective Notes: Conditional Voluntary Interim History: Pt has been mostly in bed, not attending groups minimally interacting with peers or staff. She does appears less guarded and suspicious towards this travel writer. She reports she is worried that something is going on at home; she notes multiple suspicious things such as roommate not staying overnight at home. She states she worried that roommate was doing this on purpose so that someone could hurt her. She denies SI/HI. She still somewhat suspicious about the medication and hesitant about increasing clozaril, which is the only medication that she is agreeing today to take. She does not want to take medications for DM, HTN. Medication Compliance: Intermittent Side effects from medications: No Attending Groups: No Review of Systems Acute medical concerns: No Medical Review of Systems: unchanged Review of Systems Review of Systems Noncontributory Yes Unobtainable due to mental status Diagnostics Vital Signs (24Hr): Vital Signs - 24 hr 12/31/20 18:00 01/01/21 06:00 Temperature 98.2 F 98.8 F Pulse Rate 90 84 Respiratory Rate 18 16 Blood Pressure 132/83 140/80 H Pulse Oximetry 96 95 Body Mass Index 25.0 Labs Results: 12/24/20 17:55 12/30/20 08:59 Medications Medications Current Medications Generic Name Dose Route Start Last Admin Trade Name Freq PRN Reason Stop Dose Admin Acetaminophen 650 mg 12/25/20 08:08 Acetaminophen 325 Mg Tablet PO Q6H PRN pain Al Hydroxide/Mg Hydroxide 30 ml 12/25/20 15:52 Magnesium Hydrox/Alum Hydrox 30 Ml Oral.Susp PO Q6H PRN Heartburn/Nausea Clozapine 75 mg 12/28/20 21:00 12/31/20 21:10 Clozapine 25 Mg Tablet PO 75 mg BEDTIME SARMAD Administration Hydroxyzine HCl 25 mg 12/25/20 15:52 Hydroxyzine Hcl 25 Mg Tablet PO Q6H PRN Anxiety [place] Carbonate 300 mg 12/25/20 21:00 01/01/21 08:33 [place] Carbonate Er 300 Mg Tablet.Er PO 300 mg BID SARMAD Administration Magnesium Hydroxide 30 ml 12/25/20 15:52 Milk Of Magnesia 30 Ml Oral.Susp PO DAILY PRN Constipation Metformin HCl 500 mg 12/25/20 17:00 01/01/21 09:20 Metformin Hcl 500 Mg Tablet PO Not Given BIDWM SARMAD Trazodone HCl 50 mg 12/25/20 16:05 Trazodone Hcl 50 Mg Tablet PO BEDTIME PRN Insomnia Allergies Allergies Allergy/AdvReac Type Severity Reaction Status Date / Time No Known Allergies Allergy Unverified 01/11/20 16:04 [No Known Allergies*] Assessment & Plan Assessment & Plan (1) Schizoaffective disorder, bipolar type: Status: Acute Code(s): F25.0 - Schizoaffective disorder, bipolar type Assessment and Plan: Ms. Larson is a 55 year-old woman with hx of schizoaffective disorder who was brought to [facility] [place] after sister called 911 given that pt presented as paranoid, suspicious, not caring for self, breaking electronics at home. Pt was discharged from after petition for involuntary treatment was denied by fundraising assistant on 12/04. PLAN 1. Admit to 2. Continue clozaril 75 mg po qhs 12/28/20. Pt declines to take higher dose for now 3. Obtain collateral information 4. Aftercare planning. Greater than 50% of the session was spent on counseling and/or coordination of care Reason for contiued inpatient stay Substantial Risk for: inability to function
[2020-12-31 18:00] VITALS: BP 132/83; PULSE 90; RESP 18; TEMP 36.8; O2SAT 96
[2020-12-31] MEDS: cloZAPine 25 MG TABLET 75 MG PO (21:10)
[2021-01-01 06:00] VITALS: BP 140/80; PULSE 84; RESP 16; TEMP 37.1; O2SAT 95
[2021-01-01] MEDS: Lithium Carbonate ER 300 MG TABLET.ER PO (08:33)
--- NOTE | 2021-01-01 15:26 | P.PNPSI_ITS ---
Subjective Subjective Date of Service: 01/01/21 Reason For Visit: Paranoia Interim History: Pt continues mostly in bed, not attending groups minimally interacting with peers or staff. She continues to report that she is worried that something is going on at home; she goes on about multiple suspicious things things such as roommate not staying overnight at home. She states she worried that roommate was doing this on purpose so that someone could hurt her. She does not want to listen that paranoia is part of her illness and hence need to adjust clozaril dose. She does report she is sleeping better and less anxious with clozaril. She denies SI/HI. She still somewhat suspicious about the medication and hesitant about increasing clozaril, which is the only medication that she is agreeing today to take. She does not want to take medications for DM, HTN. Review of Systems Review of Systems Noncontributory Yes Unobtainable due to mental status Mental Status Exam Mental Status Exam Narrative: Appearance: wearing hospital gown, poor hygiene in NAD Behavior:slightly less guarded suspicious psychomotor:some retardation noted Speech:clear, delayed response rate, spontaneous Thought process:single word responses, at times derailment Thought content:paranoid delusions, suspicious Mood: okay Affect: fearful, anxious SI:denies HI:denies VH/AH:appears responding to internal stimuli Delusions:paranoid delusions Insight/judgment:poor x 2. Memory/cog: alert, oriented x 3 grossly impaired secondary to psychiatric symptoms. Diagnostics Vital Signs (24Hr): Vital Signs - 24 hr 12/31/20 18:00 01/01/21 06:00 Temperature 98.2 F 98.8 F Pulse Rate 90 84 Respiratory Rate 18 16 Blood Pressure 132/83 140/80 H Pulse Oximetry 96 95 Body Mass Index 25.0 Labs Results: 12/24/20 17:55 12/30/20 08:59 Medications Medications Current Medications Generic Name Dose Route Start Last Admin Trade Name Freq PRN Reason Stop Dose Admin Acetaminophen 650 mg 12/25/20 08:08 Acetaminophen 325 Mg Tablet PO Q6H PRN pain Al Hydroxide/Mg Hydroxide 30 ml 12/25/20 15:52 Magnesium Hydrox/Alum Hydrox 30 Ml Oral.Susp PO Q6H PRN Heartburn/Nausea Clozapine 75 mg 12/28/20 21:00 09/07/21 21:10 Clozapine 25 Mg Tablet PO 75 mg BEDTIME SARMAD Administration Hydroxyzine HCl 25 mg 12/25/20 15:52 Hydroxyzine Hcl 25 Mg Tablet PO Q6H PRN Anxiety [place] Carbonate 300 mg 12/25/20 21:00 01/01/21 08:33 [place] Carbonate Er 300 Mg Tablet.Er PO 300 mg BID SARMAD Administration Magnesium Hydroxide 30 ml 12/25/20 15:52 Milk Of Magnesia 30 Ml Oral.Susp PO DAILY PRN Constipation Metformin HCl 500 mg 12/25/20 17:00 01/01/21 09:20 Metformin Hcl 500 Mg Tablet PO Not Given BIDWM SARMAD Trazodone HCl 50 mg 12/25/20 16:05 Trazodone Hcl 50 Mg Tablet PO BEDTIME PRN Insomnia Allergies Allergies Allergy/AdvReac Type Severity Reaction Status Date / Time No Known Allergies Allergy Unverified 01/11/20 16:04 [No Known Allergies*] Assessment & Plan Assessment & Plan (1) Schizoaffective disorder, bipolar type: Status: Acute Code(s): F25.0 - Schizoaffective disorder, bipolar type Assessment and Plan: Ms. Larson is a 55 year-old woman with hx of schizoaffective disorder who was brought to [facility] [place] after sister called 911 given that pt presented as paranoid, suspicious, not caring for self, breaking electronics at home. Pt was discharged from M3 after petition for involuntary treatment was denied by portfolio specialist on 12/04. PLAN 1. Admit to M5 2. Continue clozaril 75 mg po qhs 12/28/20. Pt declines to take higher dose for now 3. Obtain collateral information 4. Aftercare planning. Greater than 50% of the session was spent on counseling and/or coordination of care Reason for contiued inpatient stay Substantial Risk for: inability to function
[2021-01-01 18:00] VITALS: BP 138/75; PULSE 81; RESP 18; TEMP 36.9; O2SAT 94
[2021-01-01] MEDS: cloZAPine 25 MG TABLET 75 MG PO (20:48)
[2021-01-02 06:00] VITALS: BP 159/85; PULSE 78; RESP 16; TEMP 36.3; O2SAT 100
[2021-01-02 17:01] VITALS: BP 130/72; PULSE 77
--- NOTE | 2021-01-02 17:07 | HO.PSYCHPN ---
Subjective Subjective Date of Service: 01/02/21 Reason For Visit: Paranoia Subjective Notes: Conditional Voluntary Healthcare Proxy: No Guardianship: No Medical Problems Affecting Mental Status: No Interim History: I still don't understand why I am here. I would like to have a meeting with my sister. Pt reports no med SE, Depression 10/03, not showering, attending to her ADL's, declines medication increases. Reports she was on M3 recently and the court wanted me to leave, but I just was not ready. Pt requests family meeting. Will continue to discuss with pt medication titration to assist in sx mgt. Medication Compliance: Yes Side effects from medications: No Attending Groups: No Review of Systems Acute medical concerns: No Medical Review of Systems: unchanged Review of Systems Reports behavioral changes, Reports confusion and Reports memory loss Psychiatric: Reports anxiety, Reports behavioral changes, Reports confusion, Reports difficulty concentrating, Reports hopelessness, Reports memory loss, Reports paranoia and Reports suicidal ideation (denies) Mental Status Exam Mental Status Exam Patient Appearance: Disheveled Patient Orientation: Person and Place Level of Consciousness: Alert Patient Behavior: Guarded, Talkative, Cooperative, Passive, Suspicious, Anxious, Resistive to Care, Fatigued, Confused and Good Eye Contact Mood Description: Anxious Affect Description: Flat Patient Cognition Impaired: No Ability to Follow Directions: Fair Speech Pattern: Spontaneous Speech Memory Description: Remote Impaired and Episodic Impaired Hallucinations: None (denies however questionable) Delusions: Present Perceptual Disturbances: Depersonalization and Derealization Thought Process: Illogical and Distracted Thought Content: positive for [place], positive for Circumstantial, positive for Thought Blocking (???) and positive for Suicidal Ideation (denies) Depressive Symptoms: Increased Anxiety and Diff. Making Decisions Judgement: Poor Diagnostics Vital Signs (24Hr): Vital Signs - 24 hr 01/01/21 18:00 01/02/21 06:00 01/02/21 17:01 Temperature 98.4 F 97.4 F Pulse Rate 81 78 77 Respiratory Rate 18 16 Blood Pressure 138/75 159/85 H 130/72 Pulse Oximetry 94 100 Body Mass Index 25.0 Labs Results: 12/24/20 17:55 12/30/20 08:59 Medications Medications Current Medications Generic Name Dose Route Start Last Admin Trade Name Freq PRN Reason Stop Dose Admin Acetaminophen 650 mg 12/25/20 08:08 Acetaminophen 325 Mg Tablet PO Q6H PRN pain Al Hydroxide/Mg Hydroxide 30 ml 12/25/20 15:52 Magnesium Hydrox/Alum Hydrox 30 Ml Oral.Susp PO Q6H PRN Heartburn/Nausea Clozapine 75 mg 12/28/20 21:00 01/01/21 20:48 Clozapine 25 Mg Tablet PO 75 mg BEDTIME SARMAD Administration Hydroxyzine HCl 25 mg 12/25/20 15:52 Hydroxyzine Hcl 25 Mg Tablet PO Q6H PRN Anxiety Magnesium Hydroxide 30 ml 12/25/20 15:52 Milk Of Magnesia 30 Ml Oral.Susp PO DAILY PRN Constipation Senna/Docusate Sodium 1 tab 01/01/21 21:00 01/01/21 20:56 Sennosides/Docusate Sodium Tablet PO Not Given BEDTIME SARMAD Trazodone HCl 50 mg 12/25/20 16:05 Trazodone Hcl 50 Mg Tablet PO BEDTIME PRN Insomnia Allergies Allergies Allergy/AdvReac Type Severity Reaction Status Date / Time No Known Allergies Allergy Unverified 01/11/20 16:04 [No Known Allergies*] Assessment & Plan Assessment & Plan (1) Schizoaffective disorder, bipolar type: Status: Acute Code(s): F25.0 - Schizoaffective disorder, bipolar type Assessment and Plan: Ms. Larson is a 55 year-old woman with hx of schizoaffective disorder who was brought to [facility] [place] after sister called 911 given that pt presented as paranoid, suspicious, not caring for self, breaking electronics at home. Pt was discharged from M3 after petition for involuntary treatment was denied by sports activities foul judge on 12/04. PLAN 1. Admit to M5 2. Continue clozaril 75 mg po qhs 12/28/20. Pt declines to take higher dose for now 3. Obtain collateral information 4. Aftercare planning. 01/02/21: Continue plan of care, alliance building, collateral contacts Greater than 50% of the session was spent on counseling and/or coordination of care Patient educated on: medication risk/benefits and therapeutic strategies Informed Consent: does not understand Reason for contiued inpatient stay Substantial Risk for: harm to self, inability to function and rapid decompensation
[2021-01-02] MEDS: cloZAPine 25 MG TABLET 75 MG PO (20:41)
[2021-01-03 06:00] VITALS: BP 152/80; PULSE 81; RESP 16; TEMP 36.4; O2SAT 98
--- NOTE | 2021-01-03 12:03 | HO.PSYCHPN ---
Subjective Subjective Date of Service: 01/03/21 Reason For Visit: Paranoia Interim History: Pt presents as calmer today. Agreed with team to shower this afternoon. Reporting constipation, requested glycerine suppository taken with positive effect. Agreed to colace order daily. Continues to decline medication titration. 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 Trusts her sister and her sister's perspective. Declined offer to review precipitants from her record- no, I want to hear this from my family. Pt continues to remain in her room. She believes her OP team caused her symptoms in some way and reality tests poorly when this aspect of her perception is discussed. Medication Compliance: Yes (declines titration today) Side effects from medications: No Attending Groups: No Review of Systems Acute medical concerns: No Medical Review of Systems: unchanged Review of Systems Psychiatric: Reports anxiety (01/03) and Reports paranoia Mental Status Exam Mental Status Exam Patient Appearance: Disheveled Patient Orientation: Person and Place Level of Consciousness: Alert Patient Behavior: Guarded, Talkative, Cooperative, Passive, Suspicious, Anxious, Resistive to Care, Fatigued, Confused and Good Eye Contact Mood Description: Anxious Affect Description: Flat Patient Cognition Impaired: No Ability to Follow Directions: Fair Speech Pattern: Spontaneous Speech Memory Description: Remote Impaired and Episodic Impaired Hallucinations: None (denies however questionable) Delusions: Present Perceptual Disturbances: Depersonalization and Derealization Thought Process: Illogical and Distracted Thought Content: positive for [place], positive for Circumstantial, positive for Thought Blocking (???) and positive for Suicidal Ideation (denies) Depressive Symptoms: Increased Anxiety and Diff. Making Decisions Judgement: Poor Diagnostics Vital Signs (24Hr): Vital Signs - 24 hr 01/02/21 17:01 01/03/21 06:00 Temperature 97.6 F Pulse Rate 77 81 Respiratory Rate 16 Blood Pressure 130/72 152/80 H Pulse Oximetry 98 Body Mass Index 25.0 Labs Results: 12/24/20 17:55 12/30/20 08:59 Medications Medications Current Medications Generic Name Dose Route Start Last Admin Trade Name Freq PRN Reason Stop Dose Admin Acetaminophen 650 mg 12/25/20 08:08 Acetaminophen 325 Mg Tablet PO Q6H PRN pain Al Hydroxide/Mg Hydroxide 30 ml 12/25/20 15:52 Magnesium Hydrox/Alum Hydrox 30 Ml Oral.Susp PO Q6H PRN Heartburn/Nausea Clozapine 75 mg 12/28/20 21:00 01/02/21 20:41 Clozapine 25 Mg Tablet PO 75 mg BEDTIME SARMAD Administration Hydroxyzine HCl 25 mg 12/25/20 15:52 Hydroxyzine Hcl 25 Mg Tablet PO Q6H PRN Anxiety Magnesium Hydroxide 30 ml 12/25/20 15:52 Milk Of Magnesia 30 Ml Oral.Susp PO DAILY PRN Constipation Senna/Docusate Sodium 1 tab 01/01/21 21:00 01/02/21 20:59 Sennosides/Docusate Sodium Tablet PO Not Given BEDTIME SARMAD Trazodone HCl 50 mg 12/25/20 16:05 Trazodone Hcl 50 Mg Tablet PO BEDTIME PRN Insomnia Allergies Allergies Allergy/AdvReac Type Severity Reaction Status Date / Time No Known Allergies Allergy Unverified 01/11/20 16:04 [No Known Allergies*] Assessment & Plan Assessment & Plan (1) Schizoaffective disorder, bipolar type: Status: Acute Code(s): F25.0 - Schizoaffective disorder, bipolar type Assessment and Plan: Ms. Larson is a 55 year-old woman with hx of schizoaffective disorder who was brought to [facility] [place] after sister called 911 given that pt presented as paranoid, suspicious, not caring for self, breaking electronics at home. Pt was discharged from M3 after petition for involuntary treatment was denied by africana studies professor on 12/04. PLAN 1. Admit to M5 2. Continue clozaril 75 mg po qhs 12/28/20. Pt declines to take higher dose for now 3. Obtain collateral information 4. Aftercare planning. 01/03/21: Continue plan of care, alliance building, collateral contacts. Colace 100 mg daily. Glycerine suppository given with positive effect Greater than 50% of the session was spent on counseling and/or coordination of care Patient educated on: medication risk/benefits and therapeutic strategies Informed Consent: does not understand Reason for contiued inpatient stay Substantial Risk for: rapid decompensation
[2021-01-03] MEDS: Glycerin Adult SUPP.RECT 1 SUPP PR (13:44)
[2021-01-03 17:42] VITALS: BP 102/55; PULSE 83; RESP 18; TEMP 36.2; O2SAT 97
[2021-01-03] MEDS: Docusate Sodium 100 MG CAPSULE PO (21:41)
[2021-01-03] MEDS: cloZAPine 25 MG TABLET 75 MG PO (21:41)
[2021-01-04 06:00] VITALS: BP 137/73; PULSE 97
[2021-01-04 11:51] LABS: Neut%MD 71.4 %; Neutrophils Absolute Auto 7.2 X10*3/uL (2.0-8.3)
[2021-01-04 18:00] VITALS: BP 129/82; PULSE 81; RESP 18; TEMP 36.7; O2SAT 96
[2021-01-04] MEDS: Docusate Sodium 100 MG CAPSULE PO (20:40)
[2021-01-04] MEDS: cloZAPine 25 MG TABLET 75 MG PO (20:40)
[2021-01-04] MEDS: Acetaminophen 325 MG TABLET 650 MG PO (22:21)
--- NOTE | 2021-01-05 00:25 | HO.PSYCHPN ---
Subjective Subjective Date of Service: 01/04/21 Reason For Visit: Paranoia Subjective Notes: Roman Warning and Conditional Voluntary Healthcare Proxy: No Guardianship: No Medical Problems Affecting Mental Status: No Interim History: Patient seen and discussed with team. clinical staff educator report she appears paranoid, has not been showering or coming out of her room, does not attend groups. Patient evaluated this morning and upon interview she reports her mood is so, so. Says sleep seems to be okay. Stressors include I miss my family. She says she hasnt talked to her sister. Also says I dont know what to do about being here. Says she wants to call her sister so that she can tell me what i should do about all this. I dont understand what im supposed to do, stay here for a while or go back to my house? She denies depression, I just dont know what supposed to be doing. During interview she became tearful and says everywhere I go I get blocked, maybe they dont want me here in life. I asked who is blocking her, she states I dont know why i get blocked when i go home to get my prescription and that Says I ended up here because i didnt have my prescription. She is adamant that she is not open to increasing clozapine, I would not go over, that its too much. Denies side effects. Appetite is good. She appears to have thought blocking, interruption in her flow of thought. Says she would be open to VNA services. In the milieu, patient is isolative in behavior, mostly stays in her room. Denies SI/SIB/HI upon inquiry. Denies irritability or assaultive ideation. Says she feels safe. Medication Compliance: Yes Side effects from medications: No Attending Groups: No Review of Systems Medical Review of Systems: unchanged Mental Status Exam Mental Status Exam Narrative: Patient Appearance:?Disheveled Patient Orientation:?Person and Place Level of Consciousness:?Alert Patient Behavior:?Guarded, Talkative, Cooperative, Passive, Suspicious, Anxious, Resistive to Care, Fatigued, Confused and Good Eye Contact Mood Description:? so, so Affect Description:?Flat Patient Cognition Impaired:?No Ability to Follow Directions:?Fair Speech Pattern:?Spontaneous Speech Memory Description:?Remote Impaired and Episodic Impaired Hallucinations:?None (denies however questionable) Delusions:?Present Perceptual Disturbances:?Depersonalization and Derealization Thought Process:?Illogical and Distracted Thought Content:?positive for [place], positive for Circumstantial, positive for Thought Blocking (???) and positive for Suicidal Ideation (denies) Depressive Symptoms:?Increased Anxiety and Diff. Making Decisions Judgement:?Poor Diagnostics Vital Signs (24Hr): Vital Signs - 24 hr 01/04/21 06:00 01/04/21 18:00 Temperature 98.0 F Pulse Rate 97 81 Respiratory Rate 18 Blood Pressure 137/73 129/82 Pulse Oximetry 96 Body Mass Index 25.0 Labs Results: 12/24/20 17:55 12/30/20 08:59 Labs: Laboratory Results - last 48 hr 01/04/21 11:37 Absolute Neuts (auto) 7.2 Medications Medications Current Medications Generic Name Dose Route Start Last Admin Trade Name Freq PRN Reason Stop Dose Admin Acetaminophen 650 mg 12/25/20 08:08 01/04/21 22:21 Acetaminophen 325 Mg Tablet PO 650 mg Q6H PRN Administration pain Al Hydroxide/Mg Hydroxide 30 ml 12/25/20 15:52 Magnesium Hydrox/Alum Hydrox 30 Ml Oral.Susp PO Q6H PRN Heartburn/Nausea Clozapine 75 mg 12/28/20 21:00 01/04/21 20:40 Clozapine 25 Mg Tablet PO 75 mg BEDTIME SARMAD Administration Docusate Sodium 100 mg 01/03/21 21:00 01/04/21 20:40 Docusate Sodium 100 Mg Capsule PO 100 mg BEDTIME SARMAD Administration Hydroxyzine HCl 25 mg 12/25/20 15:52 Hydroxyzine Hcl 25 Mg Tablet PO Q6H PRN Anxiety Magnesium Hydroxide 30 ml 12/25/20 15:52 Milk Of Magnesia 30 Ml Oral.Susp PO DAILY PRN Constipation Senna/Docusate Sodium 1 tab 01/01/21 21:00 01/04/21 20:59 Sennosides/Docusate Sodium Tablet PO Not Given BEDTIME SARMAD Trazodone HCl 50 mg 12/25/20 16:05 Trazodone Hcl 50 Mg Tablet PO BEDTIME PRN Insomnia Allergies Allergies Allergy/AdvReac Type Severity Reaction Status Date / Time No Known Allergies Allergy Unverified 01/11/20 16:04 [No Known Allergies*] Assessment & Plan Assessment & Plan (1) Schizoaffective disorder, bipolar type: Status: Acute Code(s): F25.0 - Schizoaffective disorder, bipolar type Assessment and Plan: Ms. Larson is a 55 year-old woman with hx of schizoaffective disorder who [place] [facility] [place] sister called 911 given that pt presented as paranoid, suspicious, not caring for self, breaking electronics at home. Pt was discharged from after petition for involuntary treatment was denied by concreter on 12/04. PLAN 1. Admit to 2. Continue clozaril 75 mg po qhs 12/28/20. Pt declines to take higher dose for now 3. Obtain collateral information 4. Aftercare planning. 01/03/21: Continue plan of care, alliance building, collateral contacts. Colace 100 mg daily. Glycerine suppository given with positive effect 01/04/21: Continue plan of care, unwilling to increase clozapine at this time, continues to present with thought blocking, paranoia. Greater than 50% of the session was spent on counseling and/or coordination of care Reason for contiued inpatient stay Substantial Risk for: inability to function, rapid decompensation and med/psych decompensation
[2021-01-05 08:21] VITALS: BP 155/84; PULSE 73
--- NOTE | 2021-01-05 15:03 | P.PNPSI_ITS ---
Subjective Subjective Date of Service: 01/05/21 Reason For Visit: Paranoia Subjective Notes: Roman Warning and Conditional Voluntary Healthcare Proxy: No Guardianship: No Medical Problems Affecting Mental Status: No Interim History: Patient seen and discussed with team. Patient evaluated this morning and upon interview she tells me she cleaned herself at her sink, ate meals today. She feels confused about my family and if i should talk to my sister, says Im just so worried. I asked about her anxiety, she states I dont understand why my life used to be correct and why its different, worries if i will ever be able to go to work again. She again refused to go up on clozapine dose, i know the dose that i take is correct, maryam done it for 20 yrs. Also refuses adjunct treatment.? In the milieu, patient is isolative in behavior, comes out of room for meal trays. Denies SI/SIB/HI upon inquiry. Denies irritability or assaultive ideation. Says he feels safe. Medication Compliance: Yes Side effects from medications: No Attending Groups: No Review of Systems Medical Review of Systems: unchanged Mental Status Exam Mental Status Exam Narrative: Narrative:?Patient Appearance:?Disheveled Patient Orientation:?Person and Place Level of Consciousness:?Alert Patient Behavior:?Guarded, Talkative, Cooperative, Passive, Suspicious, Anxious, Resistive to Care, Fatigued, Confused and Good Eye Contact Mood Description:? confused Affect Description:?Flat Patient Cognition Impaired:?No Ability to Follow Directions:?Fair Speech Pattern:?Spontaneous Speech Memory Description:?Remote Impaired and Episodic Impaired Hallucinations:?None (denies however questionable) Delusions:?Present Perceptual Disturbances:?Depersonalization and Derealization Thought Process:?Illogical and Distracted Thought Content:?positive for [place], positive for Circumstantial, positive f or Thought Blocking (???) and positive for Suicidal Ideation (denies) Depressive Symptoms:?Increased Anxiety and Diff. Making Decisions Judgement:?Poor Diagnostics Vital Signs (24Hr): Vital Signs - 24 hr 01/04/21 18:00 01/05/21 08:21 Temperature 98.0 F Pulse Rate 81 73 Respiratory Rate 18 Blood Pressure 129/82 155/84 H Pulse Oximetry 96 Body Mass Index 25.0 Labs Results: 12/24/20 17:55 12/30/20 08:59 Labs: Laboratory Results - last 48 hr 01/04/21 11:37 Absolute Neuts (auto) 7.2 Medications Medications Current Medications Generic Name Dose Route Start Last Admin Trade Name Stoney PRN Reason Stop Dose Admin Acetaminophen 650 mg 12/25/20 08:08 01/04/21 22:21 Acetaminophen 325 Mg Tablet PO 650 mg Q6H PRN Administration pain Al Hydroxide/Mg Hydroxide 30 ml 12/25/20 15:52 Magnesium Hydrox/Alum Hydrox 30 Ml Oral.Susp PO Q6H PRN Heartburn/Nausea Clozapine 75 mg 12/28/20 21:00 01/04/21 20:40 Clozapine 25 Mg Tablet PO 75 mg BEDTIME SARMAD Administration Docusate Sodium 100 mg 01/03/21 21:00 01/04/21 20:40 Docusate Sodium 100 Mg Capsule PO 100 mg BEDTIME SARMAD Administration Hydroxyzine HCl 25 mg 12/25/20 15:52 Hydroxyzine Hcl 25 Mg Tablet PO Q6H PRN Anxiety Magnesium Hydroxide 30 ml 12/25/20 15:52 Milk Of Magnesia 30 Ml Oral.Susp PO DAILY PRN Constipation Senna/Docusate Sodium 1 tab 01/01/21 21:00 01/04/21 20:59 Sennosides/Docusate Sodium Tablet PO Not Given BEDTIME SARMAD Trazodone HCl 50 mg 12/25/20 16:05 Trazodone Hcl 50 Mg Tablet PO BEDTIME PRN Insomnia Allergies Allergies Allergy/AdvReac Type Severity Reaction Status Date / Time No Known Allergies Allergy Unverified 01/11/20 16:04 [No Known Allergies*] Assessment & Plan Assessment & Plan (1) Schizoaffective disorder, bipolar type: Status: Acute Code(s): F25.0 - Schizoaffective disorder, bipolar type Assessment and Plan: Ms. Larson is a 55 year-old woman with hx of schizoaffective disorder who [place] [facility] [place] sister called 911 given that pt presented as paranoid, suspicious, not caring for self, breaking electronics at home. Pt was discharged from [facility] after petition for involuntary treatment was denied by assembler for puller over machine on 12/04. PLAN 1. Admit to [facility] 2. Continue clozaril 75 mg po qhs 12/28/20. Pt declines to take higher dose for now 3. Obtain collateral information 4. Aftercare planning. 01/03/21: Continue plan of care, alliance building, collateral contacts. Colace 100 mg daily. Glycerine suppository given with positive effect 01/04/21: Continue plan of care, unwilling to increase clozapine at this time, continues to present with thought blocking, paranoia. 01/05/21: Continue plan of care, again unwilling to increase clozapine at this time, continues to present with thought blocking, paranoia. She is confused, minimally able to care for self, not oriented to situation. Greater than 50% of the session was spent on counseling and/or coordination of care Reason for contiued inpatient stay Substantial Risk for: inability to function, rapid decompensation and med/psych decompensation
[2021-01-05 16:51] VITALS: BP 131/81; PULSE 85; O2SAT 96
[2021-01-05] MEDS: cloZAPine 25 MG TABLET 75 MG PO (20:07)
[2021-01-05] MEDS: Docusate Sodium 100 MG CAPSULE PO (20:07)
[2021-01-06 06:00] VITALS: BP 168/84; PULSE 82; RESP 16; TEMP 35.9; O2SAT 97
[2021-01-06 07:04] LABS: Glucose, Whole Blood 163 mg/dL (60-115)
--- NOTE | 2021-01-06 10:00 | HO.PSYCHPN ---
Subjective Subjective Date of Service: 01/07/21 Reason For Visit: Paranoia Subjective Notes: Conditional Voluntary Interim History: Pt continues to present as guarded and suspicious. She would not leave her room as she feels anxious and not safe. She does report benefit with medication in terms of improved sleep and less anxiety. However, pt guarded and suspicious about increasing dose of clozaril. Pt continues to present as grossly disorganized and unble to care for self as paranoid is such that she remains mostly in her room. Medication Compliance: Intermittent Side effects from medications: No Attending Groups: No Review of Systems Review of Systems Noncontributory Yes Unobtainable due to mental status Reports behavioral changes, Reports confusion and Reports memory loss Psychiatric: Reports anxiety (01/03), Reports behavioral changes, Reports confusion, Reports difficulty concentrating, Reports hopelessness, Reports memory loss, Reports paranoia and Reports suicidal ideation (denies) Mental Status Exam Mental Status Exam Narrative: Appearance: wearing hospital gown, poor hygiene in NAD Behavior:slightly less guarded suspicious psychomotor:some retardation noted Speech:clear, delayed response rate, spontaneous Thought process:single word responses, at times derailment Thought content:paranoid delusions, suspicious Mood: okay Affect: fearful, anxious SI:denies HI:denies VH/AH:appears responding to internal stimuli Delusions:paranoid delusions Insight/judgment:poor x 2. Memory/cog: alert, oriented x 3 grossly impaired secondary to psychiatric symptoms. Diagnostics Vital Signs (24Hr): Vital Signs - 24 hr 01/07/21 06:00 Temperature 96.8 F Pulse Rate 90 Blood Pressure 129/76 Pulse Oximetry 98 Body Mass Index 25.0 Labs Results: 12/24/20 17:55 12/30/20 08:59 Labs: Laboratory Results - last 48 hr 01/06/21 01/07/21 06:58 06:14 POC Glucose 163 H 182 H Medications Medications Current Medications Generic Name Dose Route Start Last Admin Trade Name Freq PRN Reason Stop Dose Admin Acetaminophen 650 mg 12/25/20 08:08 01/04/21 22:21 Acetaminophen 325 Mg Tablet PO 650 mg Q6H PRN Administration pain Al Hydroxide/Mg Hydroxide 30 ml 12/25/20 15:52 Magnesium Hydrox/Alum Hydrox 30 Ml Oral.Susp PO Q6H PRN Heartburn/Nausea Clozapine 100 mg 01/06/21 21:00 01/06/21 21:28 Clozapine 100 Mg Tablet PO 100 mg BEDTIME SARMAD Administration Docusate Sodium 100 mg 01/03/21 21:00 01/06/21 21:28 Docusate Sodium 100 Mg Capsule PO 100 mg BEDTIME SARMAD Administration Hydroxyzine HCl 25 mg 12/25/20 15:52 Hydroxyzine Hcl 25 Mg Tablet PO Q6H PRN Anxiety Magnesium Hydroxide 30 ml 12/25/20 15:52 Milk Of Magnesia 30 Ml Oral.Susp PO DAILY PRN Constipation Senna/Docusate Sodium 1 tab 01/01/21 21:00 01/06/21 21:28 Sennosides/Docusate Sodium Tablet PO 1 tab BEDTIME SARMAD Administration Trazodone HCl 50 mg 12/25/20 16:05 Trazodone Hcl 50 Mg Tablet PO BEDTIME PRN Insomnia Allergies Allergies Allergy/AdvReac Type Severity Reaction Status Date / Time No Known Allergies Allergy Unverified 01/11/20 16:04 [No Known Allergies*] Assessment & Plan Assessment & Plan (1) Schizoaffective disorder, bipolar type: Status: Acute Code(s): F25.0 - Schizoaffective disorder, bipolar type Assessment and Plan: Ms. Larson is a 55 year-old woman with hx of schizoaffective disorder who was brought to [facility] [place] after sister called 911 given that pt presented as paranoid, suspicious, not caring for self, breaking electronics at home. Pt was discharged from after petition for involuntary treatment was denied by operating room surgical technologist on 12/04. PLAN 1. Admit to M5 2. Continue clozaril 75 mg po qhs 12/28/20. Pt declines to take higher dose for now 3. Obtain collateral information 4. Aftercare planning. 01/03/21: Continue plan of care, alliance building, collateral contacts. Colace 100 mg daily. Glycerine suppository given with positive effect 01/04/21: Continue plan of care, unwilling to increase clozapine at this time, continues to present with thought blocking, paranoia. 01/05/21: Continue plan of care, again unwilling to increase clozapine at this time, continues to present with thought blocking, paranoia. She is confused, minimally able to care for self, not oriented to situation. Greater than 50% of the session was spent on counseling and/or coordination of care Reason for contiued inpatient stay Substantial Risk for: inability to function
[2021-01-06] MEDS: Sennosides/Docusate Sodium TABLET 1 TAB PO (21:28)
[2021-01-06] MEDS: cloZAPine 100 MG TABLET PO (21:28)
[2021-01-06] MEDS: Docusate Sodium 100 MG CAPSULE PO (21:28)
[2021-01-07 06:00] VITALS: BP 129/76; PULSE 90; TEMP 36; O2SAT 98
[2021-01-07 06:18] LABS: Glucose, Whole Blood 182 mg/dL (60-115)
--- NOTE | 2021-01-07 14:35 | P.PNPSI_ITS ---
Subjective Subjective Date of Service: 01/10/21 Reason For Visit: Paranoia Subjective Notes: 3 Day Interim History: Pt continues to present mostly suspicious about medications, events leading up to this admission. She reports she was not doing well mostly because she did not have her medications. Although sister reports she was giving her the medication but she wouldn't take it mostly because of paranoia. Pt declines increase of clozaril. She reports she is doing well and does not need more medication. Per nursing, pt mostly in her room, minimally interactive with peers. Medication Compliance: Intermittent Side effects from medications: No Attending Groups: No Review of Systems Review of Systems Noncontributory Yes Unobtainable due to mental status Reports behavioral changes, Reports confusion and Reports memory loss Psychiatric: Reports anxiety (01/03), Reports behavioral changes, Reports confusion, Reports difficulty concentrating, Reports hopelessness, Reports m daren loss, Reports paranoia and Reports suicidal ideation (denies) Mental Status Exam Mental Status Exam Narrative: Appearance: wearing hospital gown, poor hygiene in NAD Behavior:slightly less guarded suspicious psychomotor:some retardation noted Speech:clear, delayed response rate, spontaneous Thought process:single word responses, at times derailment Thought content:paranoid delusions, suspicious Mood: okay Affect: fearful, anxious SI:denies HI:denies VH/AH:appears responding to internal stimuli Delusions:paranoid delusions Insight/judgment:poor x 2. Memory/cog: alert, oriented x 3 grossly impaired secondary to psychiatric symptoms. Diagnostics Vital Signs (24Hr): Vital Signs - 24 hr 01/09/21 16:45 01/10/21 09:18 Temperature 98.0 F Pulse Rate 100 85 Respiratory Rate 16 Blood Pressure 156/96 H 147/83 H Pulse Oximetry 99 Body Mass Index 25.0 Labs Results: 12/24/20 17:55 12/30/20 08:59 Medications Medications Current Medications Acetaminophen (Acetaminophen 325 Mg Tablet) 650 mg PO Q6H PRN PRN Reason: pain Last Admin: 01/04/21 22:21 Dose: 650 mg Documented by: Al Hydroxide/Mg Hydroxide (Magnesium Hydrox/Alum Hydrox 30 Ml Oral.Susp) 30 ml PO Q6H PRN PRN Reason: Heartburn/Nausea Clozapine (Clozapine 100 Mg Tablet) 100 mg PO BEDTIME SARMAD Last Admin: 01/09/21 20:51 Dose: 100 mg Documented by: Docusate Sodium (Docusate Sodium 100 Mg Capsule) 100 mg PO BEDTIME [facility] Last Admin: 01/09/21 20:51 Dose: 100 mg Documented by: Hydroxyzine HCl (Hydroxyzine Hcl 25 Mg Tablet) 25 mg PO Q6H PRN PRN Reason: Anxiety Magnesium Hydroxide (Milk Of Magnesia 30 Ml Oral.Susp) 30 ml PO DAILY PRN PRN Reason: Constipation Senna/Docusate Sodium (Sennosides/Docusate Sodium Tablet) 1 tab PO BEDTIME [facility] Last Admin: 01/09/21 20:51 Dose: 1 tab Documented by: Trazodone HCl (Trazodone Hcl 50 Mg Tablet) 50 mg PO BEDTIME PRN PRN Reason: Insomnia Allergies Allergies Allergy/AdvReac Type Severity Reaction Status Date / Time No Known Allergies Allergy Unverified 01/11/20 16:04 [No Known Allergies*] Assessment & Plan Assessment & Plan (1) Schizoaffective disorder, bipolar type: Status: Acute Code(s): F25.0 - Schizoaffective disorder, bipolar type Assessment and Plan: Ms. Larson is a 55 year-old woman with hx of schizoaffective disorder [place] [facility] [place] given that pt presented as paranoid, suspicious, not caring for self, breaking electronics at home. Pt was discharged from after petition for involuntary treatment was denied by activated sludge operator on 12/04. PLAN 1. Admit to 2. Continue clozaril 75 mg po qhs 12/28/20. Pt declines to take higher dose for now 3. Obtain collateral information 4. Aftercare planning. 01/03/21: Continue plan of care, alliance building, collateral contacts. Colace 100 mg daily. Glycerine suppository given with positive effect 01/04/21: Continue plan of care, unwilling to increase clozapine at this time, continues to present with thought blocking, paranoia. 01/05/21: Continue plan of care, again unwilling to increase clozapine at this time, continues to present with thought blocking, paranoia. She is confused, minimally able to care for self, not oriented to situation. Greater than 50% of the session was spent on counseling and/or coordination of care Reason for contiued inpatient stay Substantial Risk for: inability to function
[2021-01-07 20:10] VITALS: BP 154/73; PULSE 93; TEMP 36.7
[2021-01-07] MEDS: Docusate Sodium 100 MG CAPSULE PO (20:40)
[2021-01-07] MEDS: cloZAPine 100 MG TABLET PO (20:40)
--- NOTE | 2021-01-07 20:58 | PC.NURSE ---
Pt requested and signed a 3 day notice of revocation of conditional voluntary admission.
[2021-01-08 06:00] VITALS: BP 132/73; PULSE 90; TEMP 36.7; O2SAT 98
--- NOTE | 2021-01-08 14:38 | P.PNPSI_ITS ---
Subjective Subjective Date of Service: 01/10/21 Reason For Visit: Paranoia Interim History: Pt did take clozaril 100mg po qhs. Pt continues to present as suspicious and paranoid towards peers and staff. She is suspicious about why she is here in hospital, states she was stable and doing well. She does not want to adjust dose of clozaril. She has been mostly in her room. Note that pt not willing to take medical medication for DM, HTN. Pt mostly in her room, no interacting with peers. Has not showered. Medication Compliance: Intermittent Side effects from medications: No Attending Groups: No Review of Systems Review of Systems Noncontributory Yes Unobtainable due to mental status Reports behavioral changes, Reports confusion and Reports memory loss Psychiatric: Reports anxiety (01/03), Reports behavioral changes, Reports confusion, Reports difficulty concentrating, Reports hopelessness, Reports memory loss, Reports paranoia and Reports suicidal ideation (denies) Mental Status Exam Mental Status Exam Narrative: Appearance: wearing hospital gown, poor hygiene in NAD Behavior:slightly less guarded suspicious psychomotor:some retardation noted Speech:clear, delayed response rate, spontaneous Thought process:single word responses, at times derailment Thought content:paranoid delusions, suspicious Mood: okay Affect: fearful, anxious SI:denies HI:denies VH/AH:appears responding to internal stimuli Delusions:paranoid delusions Insight/judgment:poor x 2. Memory/cog: alert, oriented x 3 grossly impaired secondary to psychiatric symptoms. Diagnostics Vital Signs (24Hr): Vital Signs - 24 hr 01/09/21 16:45 01/10/21 09:18 Temperature 98.0 F Pulse Rate 100 85 Respiratory Rate 16 Blood Pressure 156/96 H 147/83 H Pulse Oximetry 99 Body Mass Index 25.0 Labs Results: 12/24/20 17:55 12/30/20 08:59 Medications Medications Current Medications Acetaminophen (Acetaminophen 325 Mg Tablet) 650 mg PO Q6H PRN PRN Reason: pain Last Admin: 01/04/21 22:21 Dose: 650 mg Documented by: Al Hydroxide/Mg Hydroxide (Magnesium Hydrox/Alum Hydrox 30 Ml Oral.Susp) 30 ml PO Q6H PRN PRN Reason: Heartburn/Nausea Clozapine (Clozapine 100 Mg Tablet) 100 mg PO BEDTIME SARMAD Last Admin: 01/09/21 20:51 Dose: 100 mg Documented by: Docusate Sodium (Docusate Sodium 100 Mg Capsule) 100 mg PO BEDTIME [facility] Last Admin: 01/09/21 20:51 Dose: 100 mg Documented by: Hydroxyzine HCl (Hydroxyzine Hcl 25 Mg Tablet) 25 mg PO Q6H PRN PRN Reason: Anxiety Magnesium Hydroxide (Milk Of Magnesia 30 Ml Oral.Susp) 30 ml PO DAILY PRN PRN Reason: Constipation Senna/Docusate Sodium (Sennosides/Docusate Sodium Tablet) 1 tab PO BEDTIME [facility] Last Admin: 01/09/21 20:51 Dose: 1 tab Documented by: Trazodone HCl (Trazodone Hcl 50 Mg Tablet) 50 mg PO BEDTIME PRN PRN Reason: Insomnia Allergies Allergies Allergy/AdvReac Type Severity Reaction Status Date / Time No Known Allergies Allergy Unverified 01/11/20 16:04 [No Known Allergies*] Assessment & Plan Assessment & Plan (1) Schizoaffective disorder, bipolar type: Status: Acute Code(s): F25.0 - Schizoaffective disorder, bipolar type Assessment and Plan: Ms. Larson is a 55 year-old woman with hx of schizoaffective disorder who was brought [place] [facility] [place] sister called 911 given that pt presented as paranoid, suspicious, not caring for self, breaking electronics at home. Pt was discharged from after petition for involuntary treatment was denied by vocational rehabilitation consultant on 12/04. PLAN 1. Admit to 2. Continue clozaril 75 mg po qhs 12/28/20. Pt declines to take higher dose for now 3. Obtain collateral information 4. Aftercare planning. 01/03/21: Continue plan of care, alliance building, collateral contacts. Colace 100 mg daily. Glycerine suppository given with positive effect 01/04/21: Continue plan of care, unwilling to increase clozapine at this time, continues to present with thought blocking, paranoia. 01/05/21: Continue plan of care, again unwilling to increase clozapine at this time, continues to present with thought blocking, paranoia. She is confused, minimally able to care for self, not oriented to situation. Greater than 50% of the session was spent on counseling and/or coordination of care Reason for contiued inpatient stay Substantial Risk for: inability to function
[2021-01-08 18:00] VITALS: BP 138/88; PULSE 99; RESP 16; TEMP 36.6; O2SAT 99
[2021-01-08] MEDS: Docusate Sodium 100 MG CAPSULE PO (20:32)
[2021-01-08] MEDS: cloZAPine 100 MG TABLET PO (20:32)
[2021-01-09 06:00] VITALS: BP 136/80; PULSE 82; RESP 16; TEMP 36.3; O2SAT 98
--- NOTE | 2021-01-09 14:41 | HO.PSYCHPN ---
Subjective Subjective Date of Service: 01/10/21 Reason For Visit: Paranoia Interim History: Pt did take clozaril 100mg po qhs. Pt continues to present as suspicious and paranoid towards peers and staff. Pt contineus to report same concerns as previous days:she is suspicious about why she is here in hospital (claims that medications were not sent to pharmacy when sister reports she offered them to her and she wouldn't take them), states she was stable and doing well prior to community. She denies cutting live wires, which sister reports pt doing. She does not want to adjust dose of clozaril. She has been mostly in her room. Note that pt not willing to take medical medication for DM, HTN. Pt mostly in her room, no interacting with peers. Has not showered. Pt informed that team may file again for involuntary commitment. Review of Systems Review of Systems Noncontributory Yes Unobtainable due to mental status Reports behavioral changes, Reports confusion and Reports memory loss Psychiatric: Reports anxiety (01/03), Reports behavioral changes, Reports confusion, Reports difficulty concentrating, Reports hopelessness, Reports memory loss, Reports paranoia and Reports suicidal ideation (denies) Mental Status Exam Mental Status Exam Narrative: Appearance: wearing hospital gown, poor hygiene in NAD Behavior:slightly less guarded suspicious psychomotor:some retardation noted Speech:clear, delayed response rate, spontaneous Thought process:single word responses, at times derailment Thought content:paranoid delusions, suspicious Mood: okay Affect: fearful, anxious SI:denies HI:denies VH/AH:appears responding to internal stimuli Delusions:paranoid delusions Insight/judgment:poor x 2. Memory/cog: alert, oriented x 3 grossly impaired secondary to psychiatric symptoms. Diagnostics Vital Signs (24Hr): Vital Signs - 24 hr 01/09/21 16:45 01/10/21 09:18 Temperature 98.0 F Pulse Rate 100 85 Respiratory Rate 16 Blood Pressure 156/96 H 147/83 H Pulse Oximetry 99 Body Mass Index 25.0 Labs Results: 12/24/20 17:55 12/30/20 08:59 Medications Medications Current Medications Acetaminophen (Acetaminophen 325 Mg Tablet) 650 mg PO Q6H PRN PRN Reason: pain Last Admin: 01/04/21 22:21 Dose: 650 mg Documented by: Al Hydroxide/Mg Hydroxide (Magnesium Hydrox/Alum Hydrox 30 Ml Oral.Susp) 30 ml PO Q6H PRN PRN Reason: Heartburn/Nausea Clozapine (Clozapine 100 Mg Tablet) 100 mg PO BEDTIME [facility] Last Admin: 01/09/21 20:51 Dose: 100 mg Documented by: Docusate Sodium (Docusate Sodium 100 Mg Capsule) 100 mg PO BEDTIME [facility] Last Admin: 01/09/21 20:51 Dose: 100 mg Documented by: Hydroxyzine HCl (Hydroxyzine Hcl 25 Mg Tablet) 25 mg PO Q6H PRN PRN Reason: Anxiety Magnesium Hydroxide (Milk Of Magnesia 30 Ml Oral.Susp) 30 ml PO DAILY PRN PRN Reason: Constipation Senna/Docusate Sodium (Sennosides/Docusate Sodium Tablet) 1 tab PO BEDTIME [facility] Last Admin: 01/09/21 20:51 Dose: 1 tab Documented by: Trazodone HCl (Trazodone Hcl 50 Mg Tablet) 50 mg PO BEDTIME PRN PRN Reason: Insomnia Allergies Allergies Allergy/AdvReac Type Severity Reaction Status Date / Time No Known Allergies Allergy Unverified 01/11/20 16:04 [No Known Allergies*] Assessment & Plan Assessment & Plan (1) Schizoaffective disorder, bipolar type: Status: Acute Code(s): F25.0 - Schizoaffective disorder, bipolar type Assessment and Plan: Ms. Larson is a 55 year-old woman with hx of schizoaffective disorder who was brought to [facility] [place] after sister called 911 given that pt presented as paranoid, suspicious, not caring for self, breaking electronics at home. Pt was discharged from after petition for involuntary treatment was denied by certified nurse on 12/04. PLAN 1. Admit to 2. Continue clozaril 75 mg po qhs 12/28/20. Pt declines to take higher dose for now 3. Obtain collateral information 4. Aftercare planning. 01/03/21: Continue plan of care, alliance building, collateral contacts. Colace 100 mg daily. Glycerine suppository given with positive effect 01/04/21: Continue plan of care, unwilling to increase clozapine at this time, continues to present with thought blocking, paranoia. 01/05/21: Continue plan of care, again unwilling to increase clozapine at this time, continues to present with thought blocking, paranoia. She is confused, minimally able to care for self, not oriented to situation. Greater than 50% of the session was spent on counseling and/or coordination of care Reason for contiued inpatient stay Substantial Risk for: inability to function
[2021-01-09 16:45] VITALS: BP 156/96; PULSE 100; TEMP 36.7
[2021-01-09] MEDS: Docusate Sodium 100 MG CAPSULE PO (20:51)
[2021-01-09] MEDS: Sennosides/Docusate Sodium TABLET 1 TAB PO (20:51)
[2021-01-09] MEDS: cloZAPine 100 MG TABLET PO (20:51)
[2021-01-10 09:18] VITALS: BP 147/83; PULSE 85; RESP 16; O2SAT 99
--- NOTE | 2021-01-10 14:43 | HO.PSYCHPN ---
Subjective Subjective Date of Service: 01/10/21 Reason For Visit: Paranoia Subjective Notes: 3 Day Interim History: Pt continues to present as guarded but more visible in the unit. She continues to report that she was stable in the first place and did not need to come to hospital. Pt does note that sleep and level of anxiety is less but does not think paranoia is an ongoing symptoms of her illness. She reports she thinks there was something off such as his roommate not staying in the house- which pt does not realized was due to roommate being afraid of her as she was acting erratically and in a bizarre way (disconnecting all electronics, standing over him as he was sleeping). Diagnostics Vital Signs (24Hr): Vital Signs - 24 hr 01/09/21 16:45 01/10/21 09:18 Temperature 98.0 F Pulse Rate 100 85 Respiratory Rate 16 Blood Pressure 156/96 H 147/83 H Pulse Oximetry 99 Body Mass Index 25.0 Labs Results: 12/24/20 17:55 12/30/20 08:59 Medications Medications Current Medications Acetaminophen (Acetaminophen 325 Mg Tablet) 650 mg PO Q6H PRN PRN Reason: pain Last Admin: 01/04/21 22:21 Dose: 650 mg Documented by: Al Hydroxide/Mg Hydroxide (Magnesium Hydrox/Alum Hydrox 30 Ml Oral.Susp) 30 ml PO Q6H PRN PRN Reason: Heartburn/Nausea Clozapine (Clozapine 100 Mg Tablet) 100 mg PO BEDTIME [facility] Last Admin: 01/09/21 20:51 Dose: 100 mg Documented by: Docusate Sodium (Docusate Sodium 100 Mg Capsule) 100 mg PO BEDTIME [facility] Last Admin: 01/09/21 20:51 Dose: 100 mg Documented by: Hydroxyzine HCl (Hydroxyzine Hcl 25 Mg Tablet) 25 mg PO Q6H PRN PRN Reason: Anxiety Magnesium Hydroxide (Milk Of Magnesia 30 Ml Oral.Susp) 30 ml PO DAILY PRN PRN Reason: Constipation Senna/Docusate Sodium (Sennosides/Docusate Sodium Tablet) 1 tab PO BEDTIME [facility] Last Admin: 01/09/21 20:51 Dose: 1 tab Documented by: Trazodone HCl (Trazodone Hcl 50 Mg Tablet) 50 mg PO BEDTIME PRN PRN Reason: Insomnia Allergies Allergies Allergy/AdvReac Type Severity Reaction Status Date / Time No Known Allergies Allergy Unverified 01/11/20 16:04 [No Known Allergies*] Assessment & Plan Assessment & Plan (1) Schizoaffective disorder, bipolar type: Status: Acute Code(s): F25.0 - Schizoaffective disorder, bipolar type Assessment and Plan: Ms. Larson is a 55 year-old woman with hx of schizoaffective disorder who was brought to [facility] after sister called 911 given that pt presented as paranoid, suspicious, not caring for self, breaking electronics at home. Pt was discharged from [facility] after petition for involuntary treatment was denied by mainframe systems administrator on 12/04. PLAN 1. Admit to [facility] 2. Continue clozaril 100 mg po qhs. Pt declines to take higher dose for now 3. Obtain collateral information 4. Aftercare planning. Greater than 50% of the session was spent on counseling and/or coordination of care Reason for contiued inpatient stay Substantial Risk for: inability to function
[2021-01-10 18:00] VITALS: BP 125/77; PULSE 77; RESP 18; TEMP 36.4; O2SAT 100
[2021-01-10] MEDS: cloZAPine 100 MG TABLET PO (20:52)
[2021-01-10] MEDS: Sennosides/Docusate Sodium TABLET 1 TAB PO (20:52)
[2021-01-10] MEDS: Docusate Sodium 100 MG CAPSULE PO (20:52)
[2021-01-11 06:00] VITALS: BP 111/68; PULSE 92; RESP 16; TEMP 36.6; O2SAT 98
--- NOTE | 2021-01-11 10:21 | P.PNPSI_ITS ---
Subjective Subjective Date of Service: 01/11/21 Reason For Visit: Paranoia Interim History: pt seen on 01/11 pt reports that she's pretty good. She says she's eating well, sleeping well, that she is clean, her hair is clean, she's been keeping her room clean...She also knows she's doing well since she has not paced at all during this admission. Pt says Clozapine is at a good dose and currently double the dose she was taking in the past. She denies any SI/HI or AVH. Mental Status Exam Mental Status Exam Narrative: Appearance: wearing hospital gown, adequate hygiene Behavior:cooperative, frlendly, calm psychomotor:no agitation/retardation present Speech:clear, normal response rate, spontaneous Thought process:single word responses, at times derailment Thought content: on doing better Mood: good Affect: congruent, bright SI:denies HI:denies VH/AH:denies; Delusions: no paranoid delusions expressed to aligner typewriter Insight/judgment:fair Diagnostics Vital Signs (24Hr): Vital Signs - 24 hr 01/10/21 18:00 01/11/21 06:00 Temperature 97.5 F 98 F Pulse Rate 77 92 Respiratory Rate 18 16 Blood Pressure 125/77 111/68 Pulse Oximetry 100 98 Body Mass Index 25.0 Labs Results: 12/24/20 17:55 12/30/20 08:59 Medications Medications Current Medications Acetaminophen (Acetaminophen 325 Mg Tablet) 650 mg PO Q6H PRN PRN Reason: pain Last Admin: 01/04/21 22:21 Dose: 650 mg Documented by: Al Hydroxide/Mg Hydroxide (Magnesium Hydrox/Alum Hydrox 30 Ml Oral.Susp) 30 ml PO Q6H PRN PRN Reason: Heartburn/Nausea Clozapine (Clozapine 100 Mg Tablet) 100 mg PO BEDTIME [facility] Last Admin: 01/10/21 20:52 Dose: 100 mg Documented by: Docusate Sodium (Docusate Sodium 100 Mg Capsule) 100 mg PO BEDTIME [facility] Last Admin: 01/10/21 20:52 Dose: 100 mg Documented by: Hydroxyzine HCl (Hydroxyzine Hcl 25 Mg Tablet) 25 mg PO Q6H PRN PRN Reason: Anxiety Magnesium Hydroxide (Milk Of Magnesia 30 Ml Oral.Susp) 30 ml PO DAILY PRN PRN Reason: Constipation Senna/Docusate Sodium (Sennosides/Docusate Sodium Tablet) 1 tab PO BEDTIME [facility] Last Admin: 01/10/21 20:52 Dose: 1 tab Documented by: Trazodone HCl (Trazodone Hcl 50 Mg Tablet) 50 mg PO BEDTIME PRN PRN Reason: Insomnia Allergies Allergies Allergy/AdvReac Type Severity Reaction Status Date / Time No Known Allergies Allergy Unverified 01/11/20 16:04 [No Known Allergies*] Assessment & Plan Assessment & Plan (1) Schizoaffective disorder, bipolar type: Status: Acute Code(s): F25.0 - Schizoaffective disorder, bipolar type Assessment and Plan: 01/11 aligner typewriter covering no changes to tx plan Ms. Larson is a 55 year-old woman with hx of schizoaffective disorder who was brought to [facility] after sister called 911 given that pt presented as paranoid, suspicious, not caring for self, breaking electronics at home. Pt was discharged from [facility] after petition for involuntary treatment was denied by occupational therapy specialist on 12/04. PLAN 1. Admit to M5 2. Continue clozaril 100 mg po qhs. Pt declines to take higher dose for now 3. Obtain collateral information 4. Aftercare planning. Greater than 50% of the session was spent on counseling and/or coordination of care Reason for contiued inpatient stay Substantial Risk for: other
[2021-01-11 16:30] VITALS: BP 153/78; PULSE 87; TEMP 37
[2021-01-11] MEDS: Docusate Sodium 100 MG CAPSULE PO (20:49)
[2021-01-11] MEDS: Sennosides/Docusate Sodium TABLET 1 TAB PO (20:49)
[2021-01-11] MEDS: cloZAPine 100 MG TABLET PO (20:49)
[2021-01-12 06:00] VITALS: BP 149/72; PULSE 97; RESP 16; TEMP 35.8; O2SAT 100
[2021-01-12] MEDS: Acetaminophen 325 MG TABLET 650 MG PO (11:29)
[2021-01-12 17:30] VITALS: BP 156/85; PULSE 79; TEMP 36.2
--- NOTE | 2021-01-12 19:08 | P.PNPSI_ITS ---
Subjective Subjective Date of Service: 01/12/21 Reason For Visit: Paranoia Interim History: remains in good mood; denies avh, si/hi; meds working well. no complaints, no requests. Mental Status Exam Mental Status Exam Narrative: Appearance: wearing hospital gown with sweater, adequate hygiene Behavior:cooperative, frlendly, calm psychomotor:no agitation/retardation present Speech:clear, normal response rate, spontaneous Thought process:single word responses, at times derailment Thought content: on doing better Mood: good Affect: congruent, bright SI:denies HI:denies VH/AH:denies; Delusions: no paranoid delusions expressed to contract technical writer Insight/judgment:fair Diagnostics Vital Signs (24Hr): Vital Signs - 24 hr 01/12/21 06:00 Temperature 96.4 F L Pulse Rate 97 Respiratory Rate 16 Blood Pressure 149/72 H Pulse Oximetry 100 Body Mass Index 25.0 Labs Results: 12/24/20 17:55 12/30/20 08:59 Medications Medications Current Medications Acetaminophen (Acetaminophen 325 Mg Tablet) 650 mg PO Q6H PRN PRN Reason: pain Last Admin: 01/12/21 11:29 Dose: 650 mg Documented by: Al Hydroxide/Mg Hydroxide (Magnesium Hydrox/Alum Hydrox 30 Ml Oral.Susp) 30 ml PO Q6H PRN PRN Reason: Heartburn/Nausea Clozapine (Clozapine 100 Mg Tablet) 100 mg PO BEDTIME [facility] Last Admin: 01/11/21 20:49 Dose: 100 mg Documented by: Docusate Sodium (Docusate Sodium 100 Mg Capsule) 100 mg PO BEDTIME [facility] Last Admin: 01/11/21 20:49 Dose: 100 mg Documented by: Hydroxyzine HCl (Hydroxyzine Hcl 25 Mg Tablet) 25 mg PO Q6H PRN PRN Reason: Anxiety Magnesium Hydroxide (Milk Of Magnesia 30 Ml Oral.Susp) 30 ml PO DAILY PRN PRN Reason: Constipation Senna/Docusate Sodium (Sennosides/Docusate Sodium Tablet) 1 tab PO BEDTIME [facility] Last Admin: 01/11/21 20:49 Dose: 1 tab Documented by: Trazodone HCl (Trazodone Hcl 50 Mg Tablet) 50 mg PO BEDTIME PRN PRN Reason: Insomnia Allergies Allergies Allergy/AdvReac Type Severity Reaction Status Date / Time No Known Allergies Allergy Unverified 01/11/20 16:04 [No Known Allergies*] Assessment & Plan Assessment & Plan (1) Schizoaffective disorder, bipolar type: Status: Acute Code(s): F25.0 - Schizoaffective disorder, bipolar type Assessment and Plan: 01/12 contract technical writer covering no changes to tx plan Ms. Larson is a 55 year-old woman with hx of schizoaffective disorder who was brought to [facility] after sister called 911 given that pt presented as paranoid, suspicious, not caring for self, breaking electronics at home. Pt was discharged from [facility] after petition for involuntary treatment was denied by nuclear fuels research engineer on 12/04. PLAN 1. Admit to M5 2. Continue clozaril 100 mg po qhs. Pt declines to take higher dose for now 3. Obtain collateral information 4. Aftercare planning. Greater than 50% of the session was spent on counseling and/or coordination of care Reason for contiued inpatient stay Substantial Risk for: other
[2021-01-12] MEDS: Sennosides/Docusate Sodium TABLET 1 TAB PO (20:33)
[2021-01-12] MEDS: Docusate Sodium 100 MG CAPSULE PO (20:34)
[2021-01-12] MEDS: cloZAPine 100 MG TABLET PO (20:34)
[2021-01-13] MEDS: Acetaminophen 325 MG TABLET 650 MG PO (04:37)
[2021-01-13 06:00] VITALS: BP 110/62; PULSE 92; TEMP 35.8; O2SAT 97
[2021-01-13 08:34] LABS: Neut%MD 54.1 %; Neutrophils Absolute Auto 3.8 X10*3/uL (2.0-8.3)
--- NOTE | 2021-01-13 13:06 | HO.PSYCHPN ---
Subjective Subjective Date of Service: 01/13/21 Reason For Visit: Paranoia Subjective Notes: 3 Day Interim History: Pt has been much more visible and attending groups. She appears less suspicious and paranoid. She is taking clozaril 100mg po qhs- does not want to increase. She denies SI/HI. She reports she feels safe to return to her house, less paranoid and suspicious towards roommate. Her insight as to why she returned to hospital is off, she states she never received medications when in fact per her sister she was paranoid to take them. Medication Compliance: Yes Side effects from medications: No Attending Groups: Intermittent Review of Systems Review of Systems Noncontributory Yes Unobtainable due to mental status Reports behavioral changes, Reports confusion and Reports memory loss Psychiatric: Reports anxiety (01/03), Reports behavioral changes, Reports confusion, Reports difficulty concentrating, Reports hopelessness, Reports memory loss, Reports paranoia and Reports suicidal ideation (denies) Mental Status Exam Mental Status Exam Narrative: Appearance: wearing hospital gown with sweater, improving hygiene, in NAD Behavior:cooperative, psychomotor:no agitation/retardation present Speech:clear, normal response rate, spontaneous Thought process:single word responses, at times derailment Thought content: some residual paranoia, future oriented in that she wants to return home and feels safer in community. Mood: much better Affect: congruent, bright, non labile SI:denies HI:denies VH/AH:denies; Delusions: less paranoid delusions- less suspiciousness towards staff/treatment/medications/roommate Insight/judgment:fair Memory/cog: alert, oriented x 3. improved attention, executive function. Diagnostics Vital Signs (24Hr): Vital Signs - 24 hr 01/12/21 17:30 01/13/21 06:00 Temperature 97.1 F 96.4 F L Pulse Rate 79 92 Blood Pressure 156/85 H 110/62 Pulse Oximetry 97 Body Mass Index 25.0 Labs Results: 12/24/20 17:55 12/30/20 08:59 Labs: Laboratory Results - last 48 hr 01/13/21 08:12 Absolute Neuts (auto) 3.8 Medications Medications Current Medications Acetaminophen (Acetaminophen 325 Mg Tablet) 650 mg PO Q6H PRN PRN Reason: pain Last Admin: 01/13/21 04:37 Dose: 650 mg Documented by: Al Hydroxide/Mg Hydroxide (Magnesium Hydrox/Alum Hydrox 30 Ml Oral.Susp) 30 ml PO Q6H PRN PRN Reason: Heartburn/Nausea Clozapine (Clozapine 100 Mg Tablet) 100 mg PO BEDTIME [facility] Last Admin: 01/12/21 20:34 Dose: 100 mg Documented by: Docusate Sodium (Docusate Sodium 100 Mg Capsule) 100 mg PO BEDTIME [facility] Last Admin: 01/12/21 20:34 Dose: 100 mg Documented by: Hydroxyzine HCl (Hydroxyzine Hcl 25 Mg Tablet) 25 mg PO Q6H PRN PRN Reason: Anxiety Magnesium Hydroxide (Milk Of Magnesia 30 Ml Oral.Susp) 30 ml PO DAILY PRN PRN Reason: Constipation Senna/Docusate Sodium (Sennosides/Docusate Sodium Tablet) 1 tab PO BEDTIME [facility] Last Admin: 01/12/21 20:33 Dose: 1 tab Documented by: Trazodone HCl (Trazodone Hcl 50 Mg Tablet) 50 mg PO BEDTIME PRN PRN Reason: Insomnia Allergies Allergies Allergy/AdvReac Type Severity Reaction Status Date / Time No Known Allergies Allergy Unverified 01/11/20 16:04 [No Known Allergies*] Assessment & Plan Assessment & Plan (1) Schizoaffective disorder, bipolar type: Status: Acute Code(s): F25.0 - Schizoaffective disorder, bipolar type Assessment and Plan: 01/12 advertising writer covering no changes to tx plan Ms. Larson is a 55 year-old woman with hx of schizoaffective disorder who was brought to [facility] [place] after sister called 911 given that pt presented as paranoid, suspicious, not caring for self, breaking electronics at home. Pt was discharged from [facility] after petition for involuntary treatment was denied by vp of marketing on 12/04. PLAN 1. Admit to M5 2. Continue clozaril 100 mg po qhs. Pt declines to take higher dose for now 3. Obtain collateral information 4. Aftercare planning. Greater than 50% of the session was spent on counseling and/or coordination of care Reason for contiued inpatient stay Substantial Risk for: rapid decompensation
[2021-01-13 18:00] VITALS: BP 132/74; PULSE 88; TEMP 36.7; O2SAT 98
[2021-01-13] MEDS: cloZAPine 100 MG TABLET PO (20:44)
[2021-01-13] MEDS: Docusate Sodium 100 MG CAPSULE PO (20:44)
[2021-01-13] MEDS: Sennosides/Docusate Sodium TABLET 1 TAB PO (20:44)
[2021-01-13 21:44] LABS: Glucose, Whole Blood 197 mg/dL (60-115)
[2021-01-14 06:00] VITALS: BP 159/87; PULSE 87; RESP 16; TEMP 36.9; O2SAT 95
[2021-01-14 06:43] LABS: Glucose, Whole Blood 163 mg/dL (60-115)
--- NOTE | 2021-01-14 15:58 | HO.PSYCHPN ---
Subjective Subjective Date of Service: 01/14/21 Reason For Visit: Paranoia Subjective Notes: 3 Day Interim History: Pt continues to be visible in the unit, attending groups, much less paranoid thinking about hopefully being able to go back to work .She denies SI/HI. She reports sleeping and eating well. She is taking clozaril as prescribed, no behavioral concerns. Plan for d/c tomorrow. Medication Compliance: Yes Side effects from medications: No Attending Groups: Yes Review of Systems Review of Systems Noncontributory Yes Unobtainable due to mental status Reports behavioral changes, Reports confusion and Reports memory loss Psychiatric: Reports anxiety (01/03), Reports behavioral changes, Reports confusion, Reports difficulty concentrating, Reports hopelessness, Reports memory loss, Reports paranoia and Reports suicidal ideation (denies) Mental Status Exam Mental Status Exam Narrative: Appearance: wearing hospital gown with sweater, improving hygiene, in NAD Behavior:cooperative, psychomotor:no agitation/retardation present Speech:clear, normal response rate, spontaneous Thought process:single word responses, at times derailment Thought content: some residual paranoia, future oriented in that she wants to return home and feels safer in community. Mood: much better Affect: congruent, bright, non labile SI:denies HI:denies VH/AH:denies; Delusions: less paranoid delusions- less suspiciousness towards staff/treatment/medications/roommate Insight/judgment:fair Memory/cog: alert, oriented x 3. improved attention, executive function. Diagnostics Vital Signs (24Hr): Vital Signs - 24 hr 01/13/21 18:00 01/14/21 06:00 Temperature 98.0 F 98.5 F Pulse Rate 88 87 Respiratory Rate 16 Blood Pressure 132/74 159/87 H Pulse Oximetry 98 95 Body Mass Index 25.0 Labs Results: 12/24/20 17:55 12/30/20 08:59 Labs: Laboratory Results - last 48 hr 01/13/21 01/13/21 01/14/21 08:12 17:33 06:37 Absolute Neuts (auto) 3.8 POC Glucose 197 H 163 H Medications Medications Current Medications Acetaminophen (Acetaminophen 325 Mg Tablet) 650 mg PO Q6H PRN PRN Reason: pain Last Admin: 01/13/21 04:37 Dose: 650 mg Documented by: Al Hydroxide/Mg Hydroxide (Magnesium Hydrox/Alum Hydrox 30 Ml Oral.Susp) 30 ml PO Q6H PRN PRN Reason: Heartburn/Nausea Clozapine (Clozapine 100 Mg Tablet) 100 mg PO BEDTIME [facility] Last Admin: 01/13/21 20:44 Dose: 100 mg Documented by: Docusate Sodium (Docusate Sodium 100 Mg Capsule) 100 mg PO BEDTIME [facility] Last Admin: 01/13/21 20:44 Dose: 100 mg Documented by: Hydroxyzine HCl (Hydroxyzine Hcl 25 Mg Tablet) 25 mg PO Q6H PRN PRN Reason: Anxiety Magnesium Hydroxide (Milk Of Magnesia 30 Ml Oral.Susp) 30 ml PO DAILY PRN PRN Reason: Constipation Senna/Docusate Sodium (Sennosides/Docusate Sodium Tablet) 1 tab PO BEDTIME [facility] Last Admin: 01/13/21 20:44 Dose: 1 tab Documented by: Trazodone HCl (Trazodone Hcl 50 Mg Tablet) 50 mg PO BEDTIME PRN PRN Reason: Insomnia Allergies Allergies Allergy/AdvReac Type Severity Reaction Status Date / Time No Known Allergies Allergy Unverified 01/11/20 16:04 [No Known Allergies*] Assessment & Plan Assessment & Plan (1) Schizoaffective disorder, bipolar type: Status: Acute Code(s): F25.0 - Schizoaffective disorder, bipolar type Assessment and Plan: 01/12 teletypewriter operator covering no changes to tx plan Ms. Larson is a 55 year-old woman with hx of schizoaffective disorder who was brought to [facility] [place] after sister called 911 given that pt presented as paranoid, suspicious, not caring for self, breaking electronics at home. Pt was discharged from [facility] after petition for involuntary treatment was denied by mold repairer on 12/04. PLAN 1. Admit to [facility] 2. Continue clozaril 100 mg po qhs. Pt declines to take higher dose for now 3. Obtain collateral information 4. Aftercare planning. Greater than 50% of the session was spent on counseling and/or coordination of care Reason for contiued inpatient stay Substantial Risk for: stable for discharge
[2021-01-14] MEDS: Acetaminophen 325 MG TABLET 650 MG PO (17:04)
[2021-01-14 18:00] VITALS: BP 141/80; PULSE 86; TEMP 36.7
[2021-01-14] MEDS: cloZAPine 100 MG TABLET PO (20:09)
[2021-01-14] MEDS: Docusate Sodium 100 MG CAPSULE PO (20:09)
[2021-01-15 08:35] LABS: Glucose, Whole Blood 141 mg/dL (60-115)
[2021-01-15 09:48] VITALS: BP 134/66; PULSE 99; RESP 16; TEMP 36.2; O2SAT 98
--- NOTE | 2021-01-15 12:34 | PM.PSYDC ---
DS: Providers Provider Date of Service: 01/15/21 Date of admission: 12/25/20 15:52 Primary care physician: Lakeshia Acharya MD DS: Diagnosis Discharge Diagnosis (1) Schizoaffective disorder, bipolar type: Status: Acute DS: Medications Discharge Medications Home Medications: Previous Rx's Medication Instructions Recorded clozapine 100 mg tablet 100 mg PO BEDTIME #14 tab 01/15/21 sennosides 8.6 mg-docusate sodium 1 tab PO BEDTIME #30 tab 01/15/21 50 mg tablet (Senna Plus) Mental Status Exam Mental Status Exam Narrative: Appearance: wearing hospital gown with sweater, improving hygiene, in NAD Behavior:cooperative, psychomotor:no agitation/retardation present Speech:clear, normal response rate, spontaneous Thought process:single word responses, at times derailment Thought content: some residual paranoia, future oriented in that she wants to return home and feels safer in community. Mood: much better Affect: congruent, bright, non labile SI:denies HI:denies VH/AH:denies; Delusions: less paranoid delusions- less suspiciousness towards staff/treatment/medications/roommate Insight/judgment:fair Memory/cog: alert, oriented x 3. improved attention, executive function. Data Data Completed and Pending Completed studies during hospitalization [Text1]: 01/13/21 01/13/21 01/14/21 08:12 17:33 06:37 Absolute Neuts (auto) 3.8 POC Glucose 197 H 163 H 01/15/21 08:24 Absolute Neuts (auto) POC Glucose 141 H DS: Summary Hospital Course Hospital Course: Ms. Larson is a 55 year-old woman with hx of schizoaffective disorder, bipolar type who was brought to [facility] after sister called 911 reporting pt was increasingly more paranoid, afraid to leave the house, not taking medications, standing next to roommate watching him at night, breaking electronic at home as she thought she is being monitored. Pt was recently discharged from [facility] after petition for involuntary treatment was denied by supervisor smoke control. Pt was discharged on 12/01/20. Note that after court told Ms. Walls that she can leave hospital, pt was confused and was declining to leave the unit. She declined taking a taxi to go back home because she was very suspicious and paranoid. Finally sister had to come and pick her up. On the unit, Ms. Larson presents as very guarded and suspicious. She reports something happen with her medications and were not given to her sister. She is not fully forthcoming and careful about words she uses. She states something very concerning is happening, look what happen to my medications. Pt then states maybe FBI can find out why she did not get medications. Per sister, pt refuse taking medications at home. Pt denies SI/HI. She has been mostly in her room due to paranoia. Past Psychiatric History: IP: Three admits- 10 years ago to [facility]; 20 years ago to a few hospitals in [place] (was transferred a few times) OP Psychopharm: Dieter López APRN Medical Evaluation Reviewed: Yes HOSPITAL COURSE On the unit, Ms. Walls was admitted on a CV and placed on 15 minutes checks for safety. Pt presented as disorganized, very suspicious, stating she had to come back to hospital because doctors did not send her her medications. However, her sister reports that pt was declining to take medications as pt was worried those were not the right ones for her. Pt initially was mostly in her room, minimally interactive with peers or staff, very suspicious about others. She was also reporting that she did not feel safe returning to her house because she suspected something was off. She appeared suspicious of her roommate of more than 15 years. She denied SI/HI. She declined taking medication medications for DM or HTN in part as she was too suspcious about what she was taking. After discussing risks, benefits and alternative treatment option, the only medication that Ms. Walls agreed to take was clozaril but initially she did not want to take dose higher than 50-75mg po qhs. She finally agreed to try 100mg po qhs. Her affect gradually appeared much less suspicious and less guarded, she was increasingly more visible in the unit and able to attend groups and participate appropriately. Her thought process was more coherent. Her overall behavior was more organized. She denied suicidal or homicidal ideation. There were no incidences of disruptive behaviors nor use of restraints. Her sleep significantly improved as paranoid delusions decrease. Status at Discharge Cognitive/behavioral status at discharge: Pt is much less paranoid, less suspicious. She is much more organized and coherent. She is less fearful and interacting with others much more. No SI/HI. Possible residual paranoia but to a much lesser degree. Functional status at discharge: independent ambulation Overall status at discharge: patient is progressing back to baseline Time Spent with Patient Time attestation: Total time spent providing and/or coordinating discharge services: Discharge Plan Discharge Patient Disposition: Home, Self-Care Discharge Diagnosis: Schizoaffective disorder Referrals: Merearcenio Espinoza [Other] - 01/17/21 4:00 pm (Patient scheduled therapy appointment following hospital discharge Therapy appointment is tele-health Should patient be unable to utilize technology at home to attend appointment she may present to [facility] and they will assist her in setting up tele-health appointment. ) Rosario Leblanc [Other] - 01/23/21 2:00 pm (Patient psychiatry appointment following hospital discharge Appointment is by tele-health Should patient be unable to utilize technology at home to attend appointment she may present to [facility] and they will assist her in setting up tele-health appointment.) Lakeshia Acharya MD [Primary Care Provider] - 1 Week (OFFICE IS AWARE OF FOLLOW-UP APPOINTMENT AND WILL CALL PT. WITH FOLLOW -UP DATE ) Discharge Medications: New sennosides-docusate sodium [Senna Plus] 8.6-50 mg Tablet 1 tab PO BEDTIME Qty: 30 RF: 0 clozapine 100 mg Tablet 100 mg PO BEDTIME Qty: 14 RF: 1 Discontinued metformin 500 mg Tablet 500 mg PO BIDWM Qty: 60 RF: 0 trazodone 50 mg Tablet 50 mg PO BEDTIME PRN (Reason: Insomnia) Qty: 14 RF: 0 lithium carbonate 300 mg Tablet Extended Release 300 mg PO BID Qty: 30 RF: 0 clozapine 25 mg Tablet 50 mg PO BEDTIME Qty: 14 RF: 0 Discharge Orders: Discharge Order (Routine); Ordered 01/15/21 Ordered By: Regina Lackey Diet: diabetic diet Activity on Discharge: As tolerated Stand Alone Forms: Patient Portal Discharge page Care Plan Goals: 1. Maintain mood 2. Decrease paranoia 3. No SI/HI Health Concerns: 1. Follow up with PCP Plan of Treatment: 1. Take medications as prescribed 2. Follow up with appointments 3. Go to nearest ED or call 911 in event of emergency. Assessment: 1. Pt much more coherent, organized, able to function and care for self. Much less paranoia, less AH. Improved sleep. less hypervigilant as paranoia decrease
== END 2021-01-15 14:22 | disposition home or self-care (01) | DRG 885 ==
LOC: HO.ED 20:36 → HO.PM5 12-25 15:58
PROVIDERS: Nurse Practitioner Family; Admitting Provider Psychiatry & Neurology Psychiatry; Emergency Provider Internal Medicine; PCP Internal Medicine; Visit Provider Social Worker
DX: F25.0 Schizoaffective disorder, bipolar type (principal); Z20.822 Contact with and (suspected) exposure to COVID-19; Z79.899 Other long term (current) drug therapy
CPT/HCPCS: 36415; 80053; 80061; 80143; 80178; 80179; 82077; 82565; 82607; 82746; 82947; 83036; 85025; 85048; 87635; 93005; 99285

== ENCOUNTER 2021-01-24 07:52 | Outpatient (REF) | payer MEDICARE, MEDICAID, SELFPAY ==
[2021-01-24 12:34] LABS: Neutrophils Absolute Auto 5.1 X10*3/uL (2.0-8.3); White Blood Count 8.2 X10*3/uL (4.8-10.8)
== END 2021-01-24 07:53 | disposition home or self-care (01) ==
LOC: HO.HMGCLR 07:52
PROVIDERS: PCP Internal Medicine; Visit Provider Clinical Nurse Specialist Psychiatric/Mental Health
DX: Z79.899 Other long term (current) drug therapy (principal)
CPT/HCPCS: 36415; 85048

== ENCOUNTER 2021-02-24 11:30 | Outpatient (REF) | payer MEDICARE, MEDICAID, SELFPAY ==
[2021-02-24 13:58] LABS: Neut%MD 65.5 %; Neutrophils Absolute Auto 5.69 x10*3/uL (2.0-8.3); WBCANC 8.7 X10*3/uL; White Blood Count 8.7 X10*3/uL (4.8-10.8)
== END 2021-02-24 11:31 | disposition home or self-care (01) ==
LOC: HO.HMGCLR 11:30
PROVIDERS: PCP Internal Medicine; Visit Provider Clinical Nurse Specialist Psychiatric/Mental Health
DX: Z79.899 Other long term (current) drug therapy (principal)
CPT/HCPCS: 36415; 85048

== ENCOUNTER 2021-03-26 11:20 | Outpatient (REF) | payer MEDICARE, MEDICAID, SELFPAY ==
[2021-03-26 14:09] LABS: Neut%MD 62.9 %; Neutrophils Absolute Auto 4.4 x10*3/uL (2.0-8.3); WBCANC 7.1 X10*3/uL; White Blood Count 7.1 X10*3/uL (4.8-10.8)
== END 2021-03-26 11:21 | disposition home or self-care (01) ==
LOC: HO.HMGCLR 11:20
PROVIDERS: PCP Internal Medicine; Visit Provider Clinical Nurse Specialist Psychiatric/Mental Health
DX: Z79.899 Other long term (current) drug therapy (principal)
CPT/HCPCS: 36415; 85048

== ENCOUNTER 2021-04-28 09:50 | Outpatient (REF) | payer MEDICARE, MEDICAID, SELFPAY ==
[2021-04-28 11:30] LABS: Neutrophils Absolute Auto 4.4 x10*3/uL (2.0-8.3); White Blood Count 7.3 X10*3/uL (4.8-10.8)
== END 2021-04-28 09:51 | disposition home or self-care (01) ==
LOC: HO.HMGCLR 09:50
PROVIDERS: PCP Internal Medicine; Visit Provider Clinical Nurse Specialist Psychiatric/Mental Health
DX: Z79.899 Other long term (current) drug therapy (principal)
CPT/HCPCS: 36415; 85048

== ENCOUNTER 2021-05-26 09:19 | Outpatient (REF) | payer MEDICARE, MEDICAID, SELFPAY ==
[2021-05-26 11:54] LABS: Neutrophils Absolute Auto 4.8 x10*3/uL (2.0-8.3); White Blood Count 7.6 X10*3/uL (4.8-10.8)
== END 2021-05-26 09:20 | disposition home or self-care (01) ==
LOC: HO.HMGCLDS 09:19
PROVIDERS: Visit Provider Clinical Nurse Specialist Psychiatric/Mental Health
DX: Z79.899 Other long term (current) drug therapy (principal)
CPT/HCPCS: 36415; 85048

== ENCOUNTER 2021-06-24 15:50 | Outpatient (REF) | payer MEDICARE, MEDICAID, SELFPAY ==
[2021-06-24 16:40] LABS: Basophils Percent Auto 0.4 % (0-2); Eosinophils Absolute Auto 0.2 X10*3/uL (0.0-0.4); Eosinophils Percent Auto 2.6 % (0-4); Hemoglobin 13.2 g/dl (12.0-16.0); Imm Gran Abs Auto 0.03 X10*3/uL (0.00-0.03); Imm Gran Pct Auto 0.3 % (0.0-0.4); Lymphocytes Absolute Auto 2.9 X10*3/uL (1.2-4.9); Lymphocytes Percent Auto 31.3 % (20-40); MANUAL DIFF FLAG NO; Mean Corpuscular HGB Conc 32.2 g/dl (31.0-35.0); Mean Corpuscular Volume 83.8 fL (80.0-98.0); Mean Platelet Volume 9.8 fL (9.4-12.3); Monocytes Absolute Auto 0.5 X10*3/uL (0.1-1.2); Monocytes Percent Auto 4.9 % (2-11); Neutrophils Absolute Auto 5.6 x10*3/uL (2.0-8.3); Neutrophils Percent Auto 60.5 % (45-73); Platelet Count 269 X10*3/uL (160-400); Red Blood Count 4.89 X10*6/uL (4.20-5.50); White Blood Count 9.2 X10*3/uL (4.8-10.8)
== END 2021-06-24 15:51 | disposition home or self-care (01) ==
LOC: HO.LABR 15:50
PROVIDERS: PCP Internal Medicine; Visit Provider Nurse Practitioner Psychiatric/Mental Health
DX: Z51.81 Encounter for therapeutic drug level monitoring (principal); Z79.899 Other long term (current) drug therapy
CPT/HCPCS: 36415; 85025

== ENCOUNTER 2021-07-28 08:30 | Outpatient (REF) | payer MEDICARE, MEDICAID, SELFPAY ==
[2021-07-28 12:11] LABS: MANUAL DIFF FLAG NO
[2021-07-28 12:16] LABS: Basophils Percent Auto 0.4 % (0-2); Eosinophils Absolute Auto 0.2 X10*3/uL (0.0-0.4); Eosinophils Percent Auto 2.7 % (0-4); Hematocrit 41.3 % (37.0-47.0); Hemoglobin 12.8 g/dl (12.0-16.0); Imm Gran Abs Auto 0.04 X10*3/uL (0.00-0.03); Imm Gran Pct Auto 0.5 % (0.0-0.4); Lymphocytes Absolute Auto 2.4 X10*3/uL (1.2-4.9); Lymphocytes Percent Auto 28.2 % (20-40); Mean Corpuscular Hemoglobin 26.1 pg (27.0-33.0); Mean Corpuscular Volume 84.3 fL (80.0-98.0); Monocytes Absolute Auto 0.4 X10*3/uL (0.1-1.2); Monocytes Percent Auto 5.1 % (2-11); Neutrophils Absolute Auto 5.4 x10*3/uL (2.0-8.3); Neutrophils Percent Auto 63.1 % (45-73); Platelet Count 270 X10*3/uL (160-400); Red Cell Distribution Width 13.5 % (11.0-16.0); White Blood Count 8.6 X10*3/uL (4.8-10.8)
== END 2021-07-28 08:31 | disposition home or self-care (01) ==
LOC: HO.HMGCLR 08:30
PROVIDERS: Visit Provider Nurse Practitioner Psychiatric/Mental Health
DX: Z51.81 Encounter for therapeutic drug level monitoring (principal); Z79.899 Other long term (current) drug therapy
CPT/HCPCS: 36415; 85025

== ENCOUNTER 2021-08-21 09:18 | Outpatient (REF) | payer MEDICARE, MEDICAID, SELFPAY ==
[2021-08-21 11:22] LABS: MANUAL DIFF FLAG NO
[2021-08-21 11:34] LABS: Basophils Percent Auto 0.5 % (0-2); Eosinophils Absolute Auto 0.2 X10*3/uL (0.0-0.4); Eosinophils Percent Auto 3.1 % (0-4); Hematocrit 38.3 % (37.0-47.0); Hemoglobin 12.2 g/dl (12.0-16.0); Imm Gran Abs Auto 0.06 X10*3/uL (0.00-0.03); Imm Gran Pct Auto 0.8 % (0.0-0.4); Lymphocytes Absolute Auto 2.1 X10*3/uL (1.2-4.9); Lymphocytes Percent Auto 28.8 % (20-40); Mean Corpuscular HGB Conc 31.9 g/dl (31.0-35.0); Mean Corpuscular Hemoglobin 26.8 pg (27.0-33.0); Monocytes Absolute Auto 0.4 X10*3/uL (0.1-1.2); Monocytes Percent Auto 4.7 % (2-11); Neutrophils Absolute Auto 4.6 x10*3/uL (2.0-8.3); Neutrophils Percent Auto 62.1 % (45-73); Platelet Count 248 X10*3/uL (160-400); Red Blood Count 4.56 X10*6/uL (4.20-5.50); Red Cell Distribution Width 13.9 % (11.0-16.0); White Blood Count 7.4 X10*3/uL (4.8-10.8)
== END 2021-08-21 09:19 | disposition home or self-care (01) ==
LOC: HO.HMGCLR 09:18
PROVIDERS: PCP Internal Medicine; Visit Provider Nurse Practitioner Psychiatric/Mental Health
DX: Z51.81 Encounter for therapeutic drug level monitoring (principal)
CPT/HCPCS: 36415; 85025

== ENCOUNTER 2021-09-25 08:31 | Outpatient (REF) | payer MEDICARE, MEDICAID, SELFPAY ==
[2021-09-25 11:21] LABS: MANUAL DIFF FLAG NO
[2021-09-25 11:33] LABS: Basophils Percent Auto 0.5 % (0-2); Eosinophils Absolute Auto 0.3 X10*3/uL (0.0-0.4); Eosinophils Percent Auto 3.7 % (0-4); Hematocrit 38.8 % (37.0-47.0); Hemoglobin 12.6 g/dl (12.0-16.0); Imm Gran Abs Auto 0.05 X10*3/uL (0.00-0.03); Imm Gran Pct Auto 0.6 % (0.0-0.4); Lymphocytes Absolute Auto 2.3 X10*3/uL (1.2-4.9); Lymphocytes Percent Auto 27.6 % (20-40); Mean Corpuscular HGB Conc 32.5 g/dl (31.0-35.0); Mean Corpuscular Hemoglobin 27.5 pg (27.0-33.0); Mean Corpuscular Volume 84.5 fL (80.0-98.0); Monocytes Absolute Auto 0.5 X10*3/uL (0.1-1.2); Monocytes Percent Auto 5.5 % (2-11); Neutrophils Absolute Auto 5.1 x10*3/uL (2.0-8.3); Neutrophils Percent Auto 62.1 % (45-73); Platelet Count 269 X10*3/uL (160-400); Red Blood Count 4.59 X10*6/uL (4.20-5.50); Red Cell Distribution Width 13.8 % (11.0-16.0); White Blood Count 8.2 X10*3/uL (4.8-10.8)
== END 2021-09-25 08:32 | disposition home or self-care (01) ==
LOC: HO.LABR 08:31
PROVIDERS: Absent Provider Psychiatry & Neurology Psychiatry; PCP Internal Medicine; Visit Provider Nurse Practitioner Psychiatric/Mental Health
DX: Z79.899 Other long term (current) drug therapy (principal)
CPT/HCPCS: 36415; 85025

== ENCOUNTER 2021-10-21 08:13 | Outpatient (REF) | payer MEDICARE, MEDICAID, SELFPAY ==
[2021-10-21 11:57] LABS: Baso%MD 0.5 %; Eos%MD 3.1 %; Hemoglobin 12.6 g/dl (12.0-16.0); IG%MD 0.7 %; Lymph%MD 26.7 %; Mean Corpuscular HGB Conc 32.3 g/dl (31.0-35.0); Mean Corpuscular Hemoglobin 27.6 pg (27.0-33.0); Mean Corpuscular Volume 85.3 fL (80.0-98.0); Mean Platelet Volume 10.2 fL (9.4-12.3); Mono%MD 5.7 %; Neut%MD 63.3 %; Neutrophils Absolute Auto 4.7 x10*3/uL (2.0-8.3); Platelet Count 249 X10*3/uL (160-400); Red Blood Count 4.57 X10*6/uL (4.20-5.50); Red Cell Distribution Width 13.4 % (11.0-16.0); White Blood Count 7.4 X10*3/uL (4.8-10.8)
[2021-10-21 13:14] LABS: Band Neutrophils Percent 0 % (3-5); Eosinophils Absolute Manual 0.2 X10*3/uL (0.0-0.4); Eosinophils Percent Manual 3 % (0-4); Lymphocytes Absolute Manual 1.6 X10*3/uL (1.2-4.9); Lymphocytes Percent Manual 21 % (20-40); Monocytes Absolute Manual 0.1 X10*3/uL (0.1-1.2); Monocytes Percent Manual 2 % (2-11); Neutrophils Absolute Manual 5.5 X10*3/uL (2.0-8.3); Neutrophils Percent Manual 74 % (45-73)
[2021-10-21 13:15] LABS: Platelet Estimate NORMAL (NORMAL); Platelet Morphology Comment NORMAL; RBC Morphology NORMAL
== END 2021-10-21 08:14 | disposition home or self-care (01) ==
LOC: HO.HMGCLDS 08:13
PROVIDERS: PCP Internal Medicine; Visit Provider Nurse Practitioner Psychiatric/Mental Health
DX: Z51.81 Encounter for therapeutic drug level monitoring (principal)
CPT/HCPCS: 36415; 85007; 85027; 85048

== ENCOUNTER 2021-11-17 08:49 | Outpatient (REF) | payer MEDICARE, MEDICAID, SELFPAY ==
[2021-11-17 11:21] LABS: Hematocrit 39.5 % (37.0-47.0); Hemoglobin 12.5 g/dl (12.0-16.0); Mean Corpuscular HGB Conc 31.6 g/dl (31.0-35.0); Mean Corpuscular Hemoglobin 27.1 pg (27.0-33.0); Mean Corpuscular Volume 85.7 fL (80.0-98.0); Mean Platelet Volume 10.1 fL (9.4-12.3); Platelet Count 285 X10*3/uL (160-400); Red Blood Count 4.61 X10*6/uL (4.20-5.50); Red Cell Distribution Width 13.2 % (11.0-16.0); White Blood Count 8.2 X10*3/uL (4.8-10.8)
[2021-11-17 11:53] LABS: Basophils Percent Auto 0.5 % (0-2); Eosinophils Absolute Auto 0.3 X10*3/uL (0.0-0.4); Eosinophils Percent Auto 3.3 % (0-4); Imm Gran Abs Auto 0.04 X10*3/uL (0.00-0.03); Imm Gran Pct Auto 0.5 % (0.0-0.4); Lymphocytes Absolute Auto 2.4 X10*3/uL (1.2-4.9); Lymphocytes Percent Auto 28.9 % (20-40); MANUAL DIFF FLAG NO; Monocytes Absolute Auto 0.5 X10*3/uL (0.1-1.2); Monocytes Percent Auto 5.8 % (2-11)
== END 2021-11-17 08:50 | disposition home or self-care (01) ==
LOC: HO.HMGCLR 08:49
PROVIDERS: PCP Internal Medicine; Visit Provider Nurse Practitioner Psychiatric/Mental Health
DX: Z79.899 Other long term (current) drug therapy (principal)
CPT/HCPCS: 36415; 85025

== ENCOUNTER 2021-12-16 14:37 | Outpatient (REF) | payer MEDICARE, MEDICAID, SELFPAY ==
[2021-12-16 16:59] LABS: MANUAL DIFF FLAG NO
[2021-12-16 17:32] LABS: Basophils Absolute Auto 0.1 X10*3/uL (0.0-0.2); Basophils Percent Auto 0.5 % (0-2); Eosinophils Absolute Auto 0.3 X10*3/uL (0.0-0.4); Eosinophils Percent Auto 2.8 % (0-4); Hematocrit 39.9 % (37.0-47.0); Hemoglobin 12.9 g/dl (12.0-16.0); Imm Gran Abs Auto 0.04 X10*3/uL (0.00-0.03); Imm Gran Pct Auto 0.4 % (0.0-0.4); Lymphocytes Absolute Auto 3.1 X10*3/uL (1.2-4.9); Lymphocytes Percent Auto 30.7 % (20-40); Mean Corpuscular HGB Conc 32.3 g/dl (31.0-35.0); Mean Corpuscular Hemoglobin 26.9 pg (27.0-33.0); Mean Corpuscular Volume 83.3 fL (80.0-98.0); Mean Platelet Volume 9.8 fL (9.4-12.3); Monocytes Absolute Auto 0.5 X10*3/uL (0.1-1.2); Monocytes Percent Auto 4.5 % (2-11); Neutrophils Absolute Auto 6.2 x10*3/uL (2.0-8.3); Neutrophils Percent Auto 61.1 % (45-73); Platelet Count 279 X10*3/uL (160-400); Red Blood Count 4.79 X10*6/uL (4.20-5.50); White Blood Count 10.1 X10*3/uL (4.8-10.8)
== END 2021-12-16 14:38 | disposition home or self-care (01) ==
LOC: HO.HMGCLR 14:37
PROVIDERS: PCP Internal Medicine; Visit Provider Nurse Practitioner Psychiatric/Mental Health
DX: Z79.899 Other long term (current) drug therapy (principal)
CPT/HCPCS: 36415; 85007; 85025; 85027; 85048

== ENCOUNTER 2022-01-16 13:35 | Outpatient (REF) | payer MEDICARE, MEDICAID, SELFPAY ==
[2022-01-16 14:38] LABS: Hematocrit 40.1 % (37.0-47.0); Hemoglobin 12.9 g/dl (12.0-16.0); Mean Corpuscular HGB Conc 32.2 g/dl (31.0-35.0); Mean Corpuscular Hemoglobin 26.9 pg (27.0-33.0); Mean Corpuscular Volume 83.5 fL (80.0-98.0); Mean Platelet Volume 9.7 fL (9.4-12.3); Neutrophils Absolute Auto 5.8 x10*3/uL (2.0-8.3); Platelet Count 270 X10*3/uL (160-400); Red Cell Distribution Width 13.2 % (11.0-16.0); White Blood Count 9.1 X10*3/uL (4.8-10.8)
[2022-01-16 14:54] LABS: Basophils Percent Auto 0.4 % (0-2); Eosinophils Absolute Auto 0.2 X10*3/uL (0.0-0.4); Eosinophils Percent Auto 2.5 % (0-4); Imm Gran Pct Auto 0.7 % (0.0-0.4); Lymphocytes Absolute Auto 2.5 X10*3/uL (1.2-4.9); Lymphocytes Percent Auto 27.8 % (20-40); MANUAL DIFF FLAG NO; Monocytes Absolute Auto 0.4 X10*3/uL (0.1-1.2); Monocytes Percent Auto 4.4 % (2-11); Neutrophils Percent Auto 64.2 % (45-73)
== END 2022-01-16 13:36 | disposition home or self-care (01) ==
LOC: HO.LAB 13:35
PROVIDERS: PCP Internal Medicine; Visit Provider Nurse Practitioner Psychiatric/Mental Health
DX: Z79.899 Other long term (current) drug therapy (principal)
CPT/HCPCS: 36415; 85007; 85025; 85027; 85048

== ENCOUNTER 2022-02-19 11:23 | Outpatient (REF) | payer MEDICARE, MEDICAID, SELFPAY ==
[2022-02-19 13:50] LABS: MANUAL DIFF FLAG NO
[2022-02-19 14:02] LABS: Basophils Absolute Auto 0.1 X10*3/uL (0.0-0.2); Basophils Percent Auto 0.6 % (0-2); Eosinophils Absolute Auto 0.2 X10*3/uL (0.0-0.4); Eosinophils Percent Auto 2.4 % (0-4); Hemoglobin 12.7 g/dl (12.0-16.0); Imm Gran Abs Auto 0.03 X10*3/uL (0.00-0.03); Imm Gran Pct Auto 0.4 % (0.0-0.4); Lymphocytes Absolute Auto 2.5 X10*3/uL (1.2-4.9); Lymphocytes Percent Auto 29.5 % (20-40); Mean Corpuscular HGB Conc 31.8 g/dl (31.0-35.0); Mean Corpuscular Hemoglobin 26.6 pg (27.0-33.0); Mean Corpuscular Volume 83.7 fL (80.0-98.0); Monocytes Absolute Auto 0.4 X10*3/uL (0.1-1.2); Monocytes Percent Auto 5.1 % (2-11); Neutrophils Absolute Auto 5.2 x10*3/uL (2.0-8.3); Platelet Count 270 X10*3/uL (160-400); Red Blood Count 4.78 X10*6/uL (4.20-5.50); Red Cell Distribution Width 13.2 % (11.0-16.0); White Blood Count 8.4 X10*3/uL (4.8-10.8)
== END 2022-02-19 11:24 | disposition home or self-care (01) ==
LOC: HO.HMGCLR 11:23
PROVIDERS: PCP Internal Medicine; Visit Provider Nurse Practitioner Psychiatric/Mental Health
DX: Z79.899 Other long term (current) drug therapy (principal)
CPT/HCPCS: 36415; 85025; 85048

== ENCOUNTER 2022-03-24 09:14 | Outpatient (REF) | payer MEDICARE, SELFPAY ==
[2022-03-24 11:42] LABS: MANUAL DIFF FLAG NO
[2022-03-24 11:59] LABS: Basophils Absolute Auto 0.1 X10*3/uL (0.0-0.2); Basophils Percent Auto 0.6 % (0-2); Eosinophils Absolute Auto 0.1 X10*3/uL (0.0-0.4); Eosinophils Percent Auto 1.6 % (0-4); Hematocrit 41.4 % (37.0-47.0); Imm Gran Abs Auto 0.07 X10*3/uL (0.00-0.03); Imm Gran Pct Auto 0.8 % (0.0-0.4); Lymphocytes Percent Auto 23.9 % (20-40); Mean Corpuscular HGB Conc 31.4 g/dl (31.0-35.0); Mean Corpuscular Hemoglobin 26.5 pg (27.0-33.0); Mean Corpuscular Volume 84.3 fL (80.0-98.0); Mean Platelet Volume 9.8 fL (9.4-12.3); Monocytes Absolute Auto 0.4 X10*3/uL (0.1-1.2); Monocytes Percent Auto 4.9 % (2-11); Neutrophils Absolute Auto 5.7 x10*3/uL (2.0-8.3); Neutrophils Percent Auto 68.2 % (45-73); Platelet Count 258 X10*3/uL (160-400); Red Blood Count 4.91 X10*6/uL (4.20-5.50); Red Cell Distribution Width 12.9 % (11.0-16.0); White Blood Count 8.3 X10*3/uL (4.8-10.8)
== END 2022-03-24 09:15 | disposition home or self-care (01) ==
LOC: HO.LABR 09:14
PROVIDERS: PCP Internal Medicine; Visit Provider Nurse Practitioner Psychiatric/Mental Health
DX: Z79.899 Other long term (current) drug therapy (principal)
CPT/HCPCS: 36415; 85025; 85048

== ENCOUNTER 2022-04-28 08:33 | Outpatient (REF) | payer MEDICARE, SELFPAY ==
[2022-04-28 11:19] LABS: MANUAL DIFF FLAG NO
[2022-04-28 11:35] LABS: Neut%MD 67.5 %; Neutrophils Absolute Auto 5.8 x10*3/uL (2.0-8.3); WBCANC 8.6 X10*3/uL
[2022-04-28 11:39] LABS: Basophils Absolute Auto 0.1 X10*3/uL (0.0-0.2); Basophils Percent Auto 0.5 % (0-2); Eosinophils Absolute Auto 0.3 X10*3/uL (0.0-0.4); Eosinophils Percent Auto 2.8 % (0-4); Hematocrit 40.9 % (37.0-47.0); Imm Gran Abs Auto 0.04 X10*3/uL (0.00-0.03); Imm Gran Pct Auto 0.4 % (0.0-0.4); Lymphocytes Absolute Auto 2.3 X10*3/uL (1.2-4.9); Mean Corpuscular HGB Conc 31.8 g/dl (31.0-35.0); Mean Corpuscular Hemoglobin 26.7 pg (27.0-33.0); Mean Platelet Volume 10.2 fL (9.4-12.3); Monocytes Absolute Auto 0.4 X10*3/uL (0.1-1.2); Monocytes Percent Auto 4.6 % (2-11); Neutrophils Absolute Auto 6.2 x10*3/uL (2.0-8.3); Neutrophils Percent Auto 66.7 % (45-73); Platelet Count 268 X10*3/uL (160-400); Red Blood Count 4.87 X10*6/uL (4.20-5.50); White Blood Count 9.3 X10*3/uL (4.8-10.8)
== END 2022-04-28 08:34 | disposition home or self-care (01) ==
LOC: HO.HMGCLR 08:33
PROVIDERS: PCP Internal Medicine; Visit Provider Nurse Practitioner Psychiatric/Mental Health
DX: Z51.81 Encounter for therapeutic drug level monitoring (principal)
CPT/HCPCS: 36415; 85025; 85048

== ENCOUNTER 2022-05-26 08:09 | Outpatient (REF) | payer MEDICARE, SELFPAY ==
[2022-05-26 11:39] LABS: MANUAL DIFF FLAG NO
[2022-05-26 11:58] LABS: Basophils Absolute Auto 0.1 X10*3/uL (0.0-0.2); Basophils Percent Auto 0.8 % (0-2); Eosinophils Absolute Auto 0.2 X10*3/uL (0.0-0.4); Hematocrit 40.8 % (37.0-47.0); Imm Gran Abs Auto 0.02 X10*3/uL (0.00-0.03); Imm Gran Pct Auto 0.3 % (0.0-0.4); Lymphocytes Absolute Auto 2.3 X10*3/uL (1.2-4.9); Lymphocytes Percent Auto 28.7 % (20-40); Mean Corpuscular HGB Conc 31.9 g/dl (31.0-35.0); Mean Corpuscular Hemoglobin 27.1 pg (27.0-33.0); Mean Platelet Volume 10.2 fL (9.4-12.3); Monocytes Absolute Auto 0.4 X10*3/uL (0.1-1.2); Monocytes Percent Auto 5.1 % (2-11); Neutrophils Percent Auto 62.1 % (45-73); Platelet Count 287 X10*3/uL (160-400); Red Cell Distribution Width 13.1 % (11.0-16.0)
== END 2022-05-26 08:10 | disposition home or self-care (01) ==
LOC: HO.HMGCLR 08:09
PROVIDERS: PCP Internal Medicine; Visit Provider Nurse Practitioner Psychiatric/Mental Health
DX: Z79.899 Other long term (current) drug therapy (principal)
CPT/HCPCS: 36415; 85025

== ENCOUNTER 2022-06-22 13:18 | Outpatient (REF) | payer MEDICARE, SELFPAY ==
[2022-06-22 14:18] LABS: MANUAL DIFF FLAG NO
[2022-06-22 14:28] LABS: Basophils Absolute Auto 0.1 X10*3/uL (0.0-0.2); Basophils Percent Auto 0.6 % (0-2); Eosinophils Absolute Auto 0.2 X10*3/uL (0.0-0.4); Eosinophils Percent Auto 2.4 % (0-4); Hematocrit 41.1 % (37.0-47.0); Hemoglobin 13.4 g/dl (12.0-16.0); Imm Gran Abs Auto 0.04 X10*3/uL (0.00-0.03); Imm Gran Pct Auto 0.4 % (0.0-0.4); Lymphocytes Absolute Auto 2.6 X10*3/uL (1.2-4.9); Lymphocytes Percent Auto 26.5 % (20-40); Mean Corpuscular HGB Conc 32.6 g/dl (31.0-35.0); Mean Corpuscular Hemoglobin 27.2 pg (27.0-33.0); Mean Corpuscular Volume 83.5 fL (80.0-98.0); Mean Platelet Volume 9.5 fL (9.4-12.3); Monocytes Absolute Auto 0.5 X10*3/uL (0.1-1.2); Monocytes Percent Auto 5.3 % (2-11); Neutrophils Absolute Auto 6.4 x10*3/uL (2.0-8.3); Neutrophils Percent Auto 64.8 % (45-73); Platelet Count 270 X10*3/uL (160-400); Red Blood Count 4.92 X10*6/uL (4.20-5.50); Red Cell Distribution Width 13.1 % (11.0-16.0); White Blood Count 9.9 X10*3/uL (4.8-10.8)
== END 2022-06-22 13:19 | disposition home or self-care (01) ==
LOC: HO.HMGCLR 13:18
PROVIDERS: PCP Internal Medicine; Visit Provider Nurse Practitioner Psychiatric/Mental Health
DX: Z79.899 Other long term (current) drug therapy (principal)
CPT/HCPCS: 36415; 85025

== ENCOUNTER 2022-07-24 09:38 | Outpatient (REF) | payer MEDICARE, SELFPAY ==
[2022-07-24 11:33] LABS: MANUAL DIFF FLAG NO
[2022-07-24 11:59] LABS: Basophils Percent Auto 0.5 % (0-2); Eosinophils Absolute Auto 0.2 X10*3/uL (0.0-0.4); Eosinophils Percent Auto 2.3 % (0-4); Hematocrit 41.8 % (37.0-47.0); Hemoglobin 13.2 g/dl (12.0-16.0); Imm Gran Abs Auto 0.03 X10*3/uL (0.00-0.03); Imm Gran Pct Auto 0.4 % (0.0-0.4); Lymphocytes Absolute Auto 2.1 X10*3/uL (1.2-4.9); Lymphocytes Percent Auto 25.1 % (20-40); Mean Corpuscular HGB Conc 31.6 g/dl (31.0-35.0); Mean Corpuscular Hemoglobin 26.8 pg (27.0-33.0); Mean Corpuscular Volume 84.8 fL (80.0-98.0); Mean Platelet Volume 10.2 fL (9.4-12.3); Monocytes Absolute Auto 0.4 X10*3/uL (0.1-1.2); Monocytes Percent Auto 4.9 % (2-11); Neut%MD 66.8 %; Neutrophils Absolute Auto 5.6 x10*3/uL (2.0-8.3); Neutrophils Percent Auto 66.8 % (45-73); Platelet Count 281 X10*3/uL (160-400); Red Blood Count 4.93 X10*6/uL (4.20-5.50); WBCANC 8.4 X10*3/uL; White Blood Count 8.4 X10*3/uL (4.8-10.8)
== END 2022-07-24 09:39 | disposition home or self-care (01) ==
LOC: HO.HMGCLR 09:38
PROVIDERS: PCP Internal Medicine; Visit Provider Nurse Practitioner Psychiatric/Mental Health
DX: Z79.899 Other long term (current) drug therapy (principal)
CPT/HCPCS: 36415; 85025

== ENCOUNTER 2022-08-24 09:28 | Outpatient (REF) | payer MEDICARE, SELFPAY ==
[2022-08-24 11:26] LABS: MANUAL DIFF FLAG NO
[2022-08-24 11:37] LABS: Basophils Percent Auto 0.5 % (0-2); Eosinophils Absolute Auto 0.2 X10*3/uL (0.0-0.4); Eosinophils Percent Auto 2.4 % (0-4); Hematocrit 40.1 % (37.0-47.0); Hemoglobin 12.7 g/dl (12.0-16.0); Imm Gran Abs Auto 0.03 X10*3/uL (0.00-0.03); Imm Gran Pct Auto 0.4 % (0.0-0.4); Lymphocytes Absolute Auto 1.9 X10*3/uL (1.2-4.9); Lymphocytes Percent Auto 22.7 % (20-40); Mean Corpuscular HGB Conc 31.7 g/dl (31.0-35.0); Mean Corpuscular Volume 85.1 fL (80.0-98.0); Mean Platelet Volume 10.2 fL (9.4-12.3); Monocytes Absolute Auto 0.4 X10*3/uL (0.1-1.2); Monocytes Percent Auto 4.5 % (2-11); Neutrophils Absolute Auto 5.7 x10*3/uL (2.0-8.3); Neutrophils Percent Auto 69.5 % (45-73); Platelet Count 289 X10*3/uL (160-400); Red Blood Count 4.71 X10*6/uL (4.20-5.50); Red Cell Distribution Width 12.8 % (11.0-16.0); White Blood Count 8.2 X10*3/uL (4.8-10.8)
== END 2022-08-24 09:29 | disposition home or self-care (01) ==
LOC: HO.HMGCLR 09:28
PROVIDERS: Nurse Practitioner Psychiatric/Mental Health; PCP Internal Medicine; Visit Provider Internal Medicine
DX: Z79.899 Other long term (current) drug therapy (principal)
CPT/HCPCS: 36415; 85025; 85048

== ENCOUNTER 2022-09-29 08:11 | Outpatient (REF) | payer MEDICARE, MEDICAID, SELFPAY ==
[2022-09-29 11:21] LABS: MANUAL DIFF FLAG NO
[2022-09-29 11:37] LABS: Basophils Percent Auto 0.5 % (0-2); Eosinophils Absolute Auto 0.2 X10*3/uL (0.0-0.4); Eosinophils Percent Auto 2.9 % (0-4); Hematocrit 40.4 % (37.0-47.0); Hemoglobin 12.7 g/dl (12.0-16.0); Imm Gran Abs Auto 0.05 X10*3/uL (0.00-0.03); Imm Gran Pct Auto 0.6 % (0.0-0.4); Lymphocytes Absolute Auto 2.5 X10*3/uL (1.2-4.9); Lymphocytes Percent Auto 31.3 % (20-40); Mean Corpuscular HGB Conc 31.4 g/dl (31.0-35.0); Mean Corpuscular Volume 85.8 fL (80.0-98.0); Mean Platelet Volume 10.1 fL (9.4-12.3); Monocytes Absolute Auto 0.4 X10*3/uL (0.1-1.2); Monocytes Percent Auto 5.5 % (2-11); Neut%MD 59.2 %; Neutrophils Absolute Auto 4.7 x10*3/uL (2.0-8.3); Neutrophils Percent Auto 59.2 % (45-73); Platelet Count 301 X10*3/uL (160-400); Red Blood Count 4.71 X10*6/uL (4.20-5.50); WBCANC 7.9 X10*3/uL; White Blood Count 7.9 X10*3/uL (4.8-10.8)
== END 2022-09-29 08:12 | disposition home or self-care (01) ==
LOC: HO.HMGCLR 08:11
PROVIDERS: PCP Internal Medicine; Visit Provider Nurse Practitioner Psychiatric/Mental Health
DX: Z79.899 Other long term (current) drug therapy (principal)
CPT/HCPCS: 36415; 85025

== ENCOUNTER 2022-10-22 10:44 | Outpatient (REF) | payer MEDICARE, MEDICAID, SELFPAY ==
[2022-10-22 13:51] LABS: MANUAL DIFF FLAG NO
[2022-10-22 14:06] LABS: Basophils Percent Auto 0.5 % (0-2); Eosinophils Absolute Auto 0.2 X10*3/uL (0.0-0.4); Eosinophils Percent Auto 2.3 % (0-4); Hematocrit 39.8 % (37.0-47.0); Hemoglobin 12.6 g/dl (12.0-16.0); Imm Gran Abs Auto 0.04 X10*3/uL (0.00-0.03); Imm Gran Pct Auto 0.5 % (0.0-0.4); Lymphocytes Absolute Auto 2.3 X10*3/uL (1.2-4.9); Lymphocytes Percent Auto 27.2 % (20-40); Mean Corpuscular HGB Conc 31.7 g/dl (31.0-35.0); Mean Corpuscular Hemoglobin 26.7 pg (27.0-33.0); Mean Corpuscular Volume 84.3 fL (80.0-98.0); Mean Platelet Volume 9.9 fL (9.4-12.3); Monocytes Absolute Auto 0.4 X10*3/uL (0.1-1.2); Monocytes Percent Auto 4.8 % (2-11); Neutrophils Absolute Auto 5.4 x10*3/uL (2.0-8.3); Neutrophils Percent Auto 64.7 % (45-73); Platelet Count 278 X10*3/uL (160-400); Red Blood Count 4.72 X10*6/uL (4.20-5.50); Red Cell Distribution Width 13.1 % (11.0-16.0); White Blood Count 8.3 X10*3/uL (4.8-10.8)
== END 2022-10-22 10:45 | disposition home or self-care (01) ==
LOC: HO.HMGCLR 10:44
PROVIDERS: Visit Provider Nurse Practitioner Psychiatric/Mental Health
DX: Z79.899 Other long term (current) drug therapy (principal)
CPT/HCPCS: 36415; 85025; 85048

== ENCOUNTER 2022-11-20 08:04 | Outpatient (REF) | payer MEDICARE, MEDICAID, SELFPAY ==
[2022-11-20 11:27] LABS: MANUAL DIFF FLAG NO
[2022-11-20 11:39] LABS: Basophils Percent Auto 0.5 % (0-2); Eosinophils Absolute Auto 0.2 X10*3/uL (0.0-0.4); Hematocrit 40.5 % (37.0-47.0); Hemoglobin 12.6 g/dl (12.0-16.0); Imm Gran Abs Auto 0.03 X10*3/uL (0.00-0.03); Imm Gran Pct Auto 0.4 % (0.0-0.4); Lymphocytes Absolute Auto 2.7 X10*3/uL (1.2-4.9); Lymphocytes Percent Auto 33.7 % (20-40); Mean Corpuscular HGB Conc 31.1 g/dl (31.0-35.0); Mean Corpuscular Hemoglobin 26.9 pg (27.0-33.0); Mean Corpuscular Volume 86.4 fL (80.0-98.0); Mean Platelet Volume 9.9 fL (9.4-12.3); Monocytes Absolute Auto 0.4 X10*3/uL (0.1-1.2); Monocytes Percent Auto 5.6 % (2-11); Neutrophils Absolute Auto 4.5 x10*3/uL (2.0-8.3); Neutrophils Percent Auto 56.8 % (45-73); Platelet Count 285 X10*3/uL (160-400); Red Blood Count 4.69 X10*6/uL (4.20-5.50); Red Cell Distribution Width 13.3 % (11.0-16.0); White Blood Count 7.9 X10*3/uL (4.8-10.8)
== END 2022-11-20 08:05 | disposition home or self-care (01) ==
LOC: HO.HMGCLR 08:04
PROVIDERS: PCP Internal Medicine; Visit Provider Nurse Practitioner Psychiatric/Mental Health
DX: Z79.899 Other long term (current) drug therapy (principal)
CPT/HCPCS: 36415; 85025

== ENCOUNTER 2022-11-26 13:53 | Outpatient (AMB) | payer MEDICARE, MEDICAID, SELFPAY ==
[2022-11-26 14:03] VITALS: BP 130/74; PULSE 101; O2SAT 96
--- NOTE | 2022-11-26 14:03 | A.OFFPC_ITS ---
Vital Signs 11/26/22 14:03 Weight 207 lb 4 oz BP 130/74 Blood Pressure Location Rt brachial Position Sitting Pulse 101 H Pulse Source Pulse Oximeter Pulse Oximetry (%) 96 Oxygen Delivery Method Room Air Intake Visit Reasons: Annual PE patient needs end of day appt Allergies No Known Allergies [No Known Allergies*] Allergy (Verified 11/26/22 14:03) Medication List - Last Reconciled 11/26/22 by Maude Pandya MD clozapine 100 mg PO BEDTIME lisinopril 20 mg PO DAILY sennosides-docusate sodium 8.6-50 mg (Senna Plus) 1 tab PO BEDTIME Tobacco use date assessed: 11/26/22 Dental Screening Dental Screen Date: 11/26/22 Did you have a dental visit in the last 12 months?: Yes Did you have a dental problem in the last 6 months where you did not have access to dental care?: No Was dental information given to patient?: No HPI Annual PE patient needs end of day appt HPI Details Pt presents for PE. She has not been seen for 2 years. 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 How often do you have a drink containing alcohol?: Never 3. How often do you have six or more drinks on one occasion?: Never Total Score: 0 Score Reviewed/Action Taken: Yes RADHA-7 AMB Questionnaire RADHA-7 Date RADHA - 7 assessed: 05/13/21 Source: Developed by Drs. Huan Ann, Veronica Waters, Ziyad Oliva and colleagues, with an educational sheila from [employer]. Review of Systems Const All systems reviewed & are unremarkable except as noted in HPI and below Reports no additional complaints Eyes Reports no additional complaints ENT Reports no additional complaints Card Reports no additional complaints Resp Reports no additional complaints GI Reports no additional complaints Reports no additional complaints Musc Reports no additional complaints Physical exam (Primary Care) Vital Signs: Last Vital Signs Pulse 101 H 11/26/22 14:03 BP 150/74 H 11/26/22 14:03 Pulse Ox 96 11/26/22 14:03 Oxygen Delivery Method Room Air 11/26/22 14:03 Tobacco/Smoking Status: Tobacco use Status Tobacco use date assessed 11/26/22 11/26/22 14:04 Patient Tobacco Use Status Current someday Tobacco (2 11/26/22 14:04 years ago) e-Cigarette/Vaping Use Never Used 11/26/22 14:04 Thrive Assessment: Date of Thrive Assessment Date Thrive assessed 05/13/21 11/26/22 14:04 Const General: no acute distress HENMT Head: Yes normal to inspection Ears: hearing grossly normal bilaterally General nose exam: Normal external nose present Face and sinus: Yes normal facial exam Mouth: Normal oral and palatal mucosa present Throat: Yes posterior oropharynx normal Eyes General: appearance normal, both eyes and all related structures Neck Neck: Yes no lymphadenopathy and Yes supple Resp Effort & Inspection: normal respiratory effort Auscultation: clear to auscultation bilaterally Cardio Rhythm: regular rhythm Heart sounds: S1 normal heart sound present and S2 normal heart sound present GI Inspection: Yes normal to inspection Palpation (GI): Soft to palpation Percussion: Yes normal to percussion Auscultation: normal bowel sounds Results AMB Hemoglobin A1c AMB Hemoglobin A1c 11.4 % Last Edit by Aubrie Cardona CMA on 11/26/22 14:33 Results Reviewed Results Reviewed: Laboratory Last Values Hgb A1c (Clinic) 11.4 % (4.0-6.0) H 11/26/22 14:30 Assessment and Plan Assessment & Plan (1) HTN (hypertension): Code(s): I10 - Essential (primary) hypertension Plan: CONTINUE LISINOPRIL. LOW SODIUM DIET INCREASE EXERCISE WEIGHT LOSS DISCUSSED WITH THE PATIENT (2) DM type 2 (diabetes mellitus, type 2): Comment: refuses meds, A1C 11.4 12/16 Code(s): E11.9 - Type 2 diabetes mellitus without complications Plan: A1c is 11.4 today, ADA diet increase physical activity weight loss discussed with the patient. Diagnosis a complication discussed with the patient. She refused to take medications. Patient will be referred to diabetic security guard and nurse navigator. She was advised to start monitoring her fasting blood glucose daily and record the readings. Patient agreed to follow-up in 2 months and have a fasting labs before (3) Annual physical exam: Code(s): Z00.00 - Encounter for general adult medical examination without abnormal findings Plan: Well-balanced diet regular exercise discussed with the patient she will schedule appointment for mammogram and Pap smear with the salesperson toy trains and accessories. Patient refused colonoscopy (4) Schizoaffective disorder, bipolar type: Code(s): F25.0 - Schizoaffective disorder, bipolar type Plan: Continue current medication (5) Colonoscopy refused: Comment: 04/2021. 12/16 Code(s): Z53.20 - Procedure and treatment not carried out because of patient's decision for unspecified reasons (6) Hx of mammogram: Comment: 2019 [facility], WILL SCHEDULE 12/16 Code(s): Z92.89 - Personal history of other medical treatment (7) Normal pelvic exam: Comment: Dr. Serrano Code(s): Z01.419 - Encounter for gynecological examination (general) (routine) without abnormal findings Orders: Orders Comprehensive [place]. Panel Fast Today E11.9 - Type 2 diabetes mellitus without complications, F25.0 - Schizoaffective disorder, bipolar type, I10 - Essential (primary) hypertension, Z00.00 - Encounter for general adult medical examination without abnormal findings Lipid Panel Today E11.9 - Type 2 diabetes mellitus without complications, F25.0 - Schizoaffective disorder, bipolar type, I10 - Essential (primary) hypertension, Z00.00 - Encounter for general adult medical examination without abnormal findings TSH reflex Free T4 Today E11.9 - Type 2 diabetes mellitus without complications, F25.0 - Schizoaffective disorder, bipolar type, I10 - Essential (primary) hypertension, Z00.00 - Encounter for general adult medical examination without abnormal findings Microalbumin, Random (w Creat) Today E11.9 - Type 2 diabetes mellitus without complications, F25.0 - Schizoaffective disorder, bipolar type, I10 - Essential (primary) hypertension, Z00.00 - Encounter for general adult medical examination without abnormal findings Complete Blood Count Auto Diff Today E11.9 - Type 2 diabetes mellitus without complications, F25.0 - Schizoaffective disorder, bipolar type, I10 - Essential (primary) hypertension, Z00.00 - Encounter for general adult medical examination without abnormal findings Hemoglobin A1c POC Today E11.9 - Type 2 diabetes mellitus without complications, F25.0 - Schizoaffective disorder, bipolar type, I10 - Essential (primary) hypertension, Z00.00 - Encounter for general adult medical examination without abnormal findings AMB Hemoglobin A1c Today E11.9 - Type 2 diabetes mellitus without complications Referrals Nutrition/Dietitian Referral E11.9 - Type 2 diabetes mellitus without complications Coding Level of Care Code Est Pt Prev Care 40-64y(75178) Diagnoses HTN (hypertension) I10 DM type 2 (diabetes mellitus, type 2) E11.9 Annual physical exam Z00.00 Schizoaffective disorder, bipolar type F25.0 Colonoscopy refused Z53.20 Hx of mammogram Z92.89 Normal pelvic exam Z01.419
== END 2022-11-26 14:50 | disposition home or self-care (01) ==
PROVIDERS: PCP Internal Medicine; Visit Provider Internal Medicine
DX: I10 Essential (primary) hypertension (principal); E11.9 Type 2 diabetes mellitus without complications; Z00.00 Encounter for general adult medical examination without abnormal findings; F25.0 Schizoaffective disorder, bipolar type; Z53.20 Procedure and treatment not carried out because of patient's decision for unspecified reasons; Z92.89 Personal history of other medical treatment; Z01.419 Encounter for gynecological examination (general) (routine) without abnormal findings
CPT/HCPCS: 83036; 99396

== ENCOUNTER 2022-11-26 14:30 | Outpatient (REF) | payer MEDICARE, MEDICAID, SELFPAY | END 2022-11-26 14:31 | disposition home or self-care (01) | LOC: HO.LAB 14:30 | PROVIDERS: Visit Provider Internal Medicine | DX: Z13.89 Encounter for screening for other disorder (principal) ==

== ENCOUNTER 2022-12-22 08:21 | Outpatient (REF) | payer MEDICARE, MEDICAID, SELFPAY ==
[2022-12-22 11:37] LABS: MANUAL DIFF FLAG NO
[2022-12-22 12:00] LABS: Basophils Absolute Auto 0.1 X10*3/uL (0.0-0.2); Basophils Percent Auto 0.7 % (0-2); Eosinophils Absolute Auto 0.2 X10*3/uL (0.0-0.4); Eosinophils Percent Auto 2.8 % (0-4); Hematocrit 39.4 % (37.0-47.0); Hemoglobin 12.6 g/dl (12.0-16.0); Imm Gran Abs Auto 0.03 X10*3/uL (0.00-0.03); Imm Gran Pct Auto 0.4 % (0.0-0.4); Lymphocytes Absolute Auto 2.3 X10*3/uL (1.2-4.9); Lymphocytes Percent Auto 28.5 % (20-40); Mean Corpuscular Hemoglobin 26.8 pg (27.0-33.0); Mean Corpuscular Volume 83.8 fL (80.0-98.0); Mean Platelet Volume 9.7 fL (9.4-12.3); Monocytes Absolute Auto 0.5 X10*3/uL (0.1-1.2); Monocytes Percent Auto 5.6 % (2-11); Neutrophils Absolute Auto 5.1 x10*3/uL (2.0-8.3); Platelet Count 285 X10*3/uL (160-400); WBCANC 8.2 X10*3/uL; White Blood Count 8.2 X10*3/uL (4.8-10.8)
== END 2022-12-22 08:22 | disposition home or self-care (01) ==
LOC: HO.HMGCLR 08:21
PROVIDERS: PCP Internal Medicine; Visit Provider Nurse Practitioner Psychiatric/Mental Health
DX: Z79.899 Other long term (current) drug therapy (principal)
CPT/HCPCS: 36415; 85025

== ENCOUNTER 2023-01-19 09:59 | Outpatient (REF) | payer MEDICARE, MEDICAID, SELFPAY ==
[2023-01-19 13:07] LABS: MANUAL DIFF FLAG NO
[2023-01-19 13:19] LABS: Basophils Absolute Auto 0.1 X10*3/uL (0.0-0.2); Basophils Percent Auto 0.8 % (0-2); Eosinophils Absolute Auto 0.3 X10*3/uL (0.0-0.4); Eosinophils Percent Auto 3.3 % (0-4); Hematocrit 40.6 % (37.0-47.0); Hemoglobin 12.9 g/dl (12.0-16.0); Imm Gran Abs Auto 0.04 X10*3/uL (0.00-0.03); Imm Gran Pct Auto 0.5 % (0.0-0.4); Lymphocytes Absolute Auto 2.1 X10*3/uL (1.2-4.9); Lymphocytes Percent Auto 26.8 % (20-40); Mean Corpuscular HGB Conc 31.8 g/dl (31.0-35.0); Mean Corpuscular Hemoglobin 27.3 pg (27.0-33.0); Mean Corpuscular Volume 85.8 fL (80.0-98.0); Monocytes Absolute Auto 0.4 X10*3/uL (0.1-1.2); Monocytes Percent Auto 4.9 % (2-11); Neut%MD 63.7 %; Neutrophils Percent Auto 63.7 % (45-73); Platelet Count 282 X10*3/uL (160-400); Red Blood Count 4.73 X10*6/uL (4.20-5.50); Red Cell Distribution Width 13.1 % (11.0-16.0); WBCANC 7.8 X10*3/uL; White Blood Count 7.8 X10*3/uL (4.8-10.8)
== END 2023-01-19 10:00 | disposition home or self-care (01) ==
LOC: HO.HMGCLR 09:59
PROVIDERS: PCP Internal Medicine; Visit Provider Nurse Practitioner Psychiatric/Mental Health
DX: Z79.899 Other long term (current) drug therapy (principal)
CPT/HCPCS: 36415; 85025

== ENCOUNTER 2023-02-18 09:14 | Outpatient (REF) | payer MEDICARE, MEDICAID, SELFPAY ==
[2023-02-18 11:46] LABS: MANUAL DIFF FLAG NO
[2023-02-18 11:52] LABS: Basophils Absolute Auto 0.1 X10*3/uL (0.0-0.2); Basophils Percent Auto 0.7 % (0-2); Eosinophils Absolute Auto 0.4 X10*3/uL (0.0-0.4); Eosinophils Percent Auto 4.9 % (0-4); Hematocrit 38.5 % (37.0-47.0); Hemoglobin 12.4 g/dl (12.0-16.0); Imm Gran Abs Auto 0.05 X10*3/uL (0.00-0.03); Imm Gran Pct Auto 0.6 % (0.0-0.4); Lymphocytes Absolute Auto 2.1 X10*3/uL (1.2-4.9); Lymphocytes Percent Auto 26.7 % (20-40); Mean Corpuscular HGB Conc 32.2 g/dl (31.0-35.0); Mean Corpuscular Volume 83.9 fL (80.0-98.0); Mean Platelet Volume 10.1 fL (9.4-12.3); Monocytes Absolute Auto 0.4 X10*3/uL (0.1-1.2); Monocytes Percent Auto 4.9 % (2-11); Neutrophils Percent Auto 62.2 % (45-73); Platelet Count 287 X10*3/uL (160-400); Red Blood Count 4.59 X10*6/uL (4.20-5.50); Red Cell Distribution Width 12.9 % (11.0-16.0)
== END 2023-02-18 09:15 | disposition home or self-care (01) ==
LOC: HO.HMGCLR 09:14
PROVIDERS: PCP Internal Medicine; Visit Provider Nurse Practitioner Psychiatric/Mental Health
DX: F25.0 Schizoaffective disorder, bipolar type (principal); Z79.899 Other long term (current) drug therapy
CPT/HCPCS: 36415; 85025

== ENCOUNTER 2023-03-24 09:49 | Outpatient (REF) | payer MEDICARE, MEDICAID, SELFPAY ==
[2023-03-24 13:18] LABS: MANUAL DIFF FLAG NO
[2023-03-24 13:43] LABS: Basophils Absolute Auto 0.1 X10*3/uL (0.0-0.2); Basophils Percent Auto 0.7 % (0-2); Eosinophils Absolute Auto 0.3 X10*3/uL (0.0-0.4); Eosinophils Percent Auto 2.9 % (0-4); Hematocrit 40.3 % (37.0-47.0); Hemoglobin 12.7 g/dl (12.0-16.0); Imm Gran Abs Auto 0.04 X10*3/uL (0.00-0.03); Imm Gran Pct Auto 0.4 % (0.0-0.4); Lymphocytes Absolute Auto 2.4 X10*3/uL (1.2-4.9); Lymphocytes Percent Auto 26.9 % (20-40); Mean Corpuscular HGB Conc 31.5 g/dl (31.0-35.0); Mean Corpuscular Hemoglobin 26.6 pg (27.0-33.0); Mean Corpuscular Volume 84.3 fL (80.0-98.0); Monocytes Absolute Auto 0.4 X10*3/uL (0.1-1.2); Monocytes Percent Auto 4.7 % (2-11); Neutrophils Absolute Auto 5.7 x10*3/uL (2.0-8.3); Neutrophils Percent Auto 64.4 % (45-73); Platelet Count 282 X10*3/uL (160-400); Red Blood Count 4.78 X10*6/uL (4.20-5.50); Red Cell Distribution Width 13.2 % (11.0-16.0); White Blood Count 8.9 X10*3/uL (4.8-10.8)
== END 2023-03-24 09:50 | disposition home or self-care (01) ==
LOC: HO.HMGCLR 09:49
PROVIDERS: PCP Internal Medicine; Visit Provider Nurse Practitioner Psychiatric/Mental Health
DX: F25.0 Schizoaffective disorder, bipolar type (principal); Z79.899 Other long term (current) drug therapy
CPT/HCPCS: 36415; 85025

== ENCOUNTER 2023-04-22 08:00 | Outpatient (REF) | payer MEDICARE, MEDICAID, SELFPAY ==
[2023-04-22 11:14] LABS: MANUAL DIFF FLAG NO
[2023-04-22 11:35] LABS: Basophils Absolute Auto 0.1 X10*3/uL (0.0-0.2); Basophils Percent Auto 0.9 % (0-2); Eosinophils Absolute Auto 0.3 X10*3/uL (0.0-0.4); Eosinophils Percent Auto 3.8 % (0-4); Hematocrit 41.3 % (37.0-47.0); Imm Gran Abs Auto 0.03 X10*3/uL (0.00-0.03); Imm Gran Pct Auto 0.4 % (0.0-0.4); Lymphocytes Absolute Auto 1.5 X10*3/uL (1.2-4.9); Lymphocytes Percent Auto 21.9 % (20-40); Mean Corpuscular HGB Conc 31.5 g/dl (31.0-35.0); Mean Corpuscular Volume 85.9 fL (80.0-98.0); Mean Platelet Volume 10.1 fL (9.4-12.3); Monocytes Absolute Auto 0.4 X10*3/uL (0.1-1.2); Neutrophils Absolute Auto 4.6 x10*3/uL (2.0-8.3); Platelet Count 275 X10*3/uL (160-400); Red Blood Count 4.81 X10*6/uL (4.20-5.50); Red Cell Distribution Width 13.2 % (11.0-16.0); WBCANC 6.8 X10*3/uL; White Blood Count 6.8 X10*3/uL (4.8-10.8)
== END 2023-04-22 08:01 | disposition home or self-care (01) ==
LOC: HO.HMGCLR 08:00
PROVIDERS: PCP Internal Medicine; Visit Provider Nurse Practitioner Psychiatric/Mental Health
DX: F25.0 Schizoaffective disorder, bipolar type (principal); Z79.899 Other long term (current) drug therapy
CPT/HCPCS: 36415; 85025

== ENCOUNTER 2023-05-25 14:42 | Outpatient (REF) | payer MEDICARE, MEDICAID, SELFPAY ==
[2023-05-25 16:13] LABS: MANUAL DIFF FLAG NO
[2023-05-25 16:16] LABS: Basophils Absolute Auto 0.1 X10*3/uL (0.0-0.2); Basophils Percent Auto 0.6 % (0-2); Eosinophils Absolute Auto 0.3 X10*3/uL (0.0-0.4); Eosinophils Percent Auto 2.8 % (0-4); Hematocrit 38.6 % (37.0-47.0); Hemoglobin 12.6 g/dl (12.0-16.0); Imm Gran Abs Auto 0.04 X10*3/uL (0.00-0.03); Imm Gran Pct Auto 0.4 % (0.0-0.4); Lymphocytes Absolute Auto 2.6 X10*3/uL (1.2-4.9); Lymphocytes Percent Auto 24.7 % (20-40); Mean Corpuscular HGB Conc 32.6 g/dl (31.0-35.0); Mean Corpuscular Volume 82.7 fL (80.0-98.0); Mean Platelet Volume 9.8 fL (9.4-12.3); Monocytes Absolute Auto 0.5 X10*3/uL (0.1-1.2); Monocytes Percent Auto 4.6 % (2-11); Neutrophils Absolute Auto 7.1 x10*3/uL (2.0-8.3); Neutrophils Percent Auto 66.9 % (45-73); Platelet Count 263 X10*3/uL (160-400); Red Blood Count 4.67 X10*6/uL (4.20-5.50); Red Cell Distribution Width 12.9 % (11.0-16.0); White Blood Count 10.5 X10*3/uL (4.8-10.8)
== END 2023-05-25 14:43 | disposition home or self-care (01) ==
LOC: HO.HMGCLR 14:42
PROVIDERS: PCP Internal Medicine; Visit Provider Nurse Practitioner Psychiatric/Mental Health
DX: F25.0 Schizoaffective disorder, bipolar type (principal); Z79.899 Other long term (current) drug therapy
CPT/HCPCS: 36415; 85025

== ENCOUNTER 2023-06-22 14:45 | Outpatient (REF) | payer MEDICARE, MEDICAID, SELFPAY ==
[2023-06-22 16:55] LABS: MANUAL DIFF FLAG NO
[2023-06-22 17:00] LABS: Basophils Absolute Auto 0.1 X10*3/uL (0.0-0.2); Basophils Percent Auto 0.5 % (0-2); Eosinophils Absolute Auto 0.2 X10*3/uL (0.0-0.4); Eosinophils Percent Auto 2.2 % (0-4); Hemoglobin 12.4 g/dl (12.0-16.0); Imm Gran Abs Auto 0.05 X10*3/uL (0.00-0.03); Imm Gran Pct Auto 0.4 % (0.0-0.4); Lymphocytes Absolute Auto 2.4 X10*3/uL (1.2-4.9); Lymphocytes Percent Auto 21.7 % (20-40); Mean Corpuscular HGB Conc 32.6 g/dl (31.0-35.0); Mean Corpuscular Hemoglobin 26.7 pg (27.0-33.0); Mean Corpuscular Volume 81.7 fL (80.0-98.0); Mean Platelet Volume 9.6 fL (9.4-12.3); Monocytes Absolute Auto 0.5 X10*3/uL (0.1-1.2); Monocytes Percent Auto 4.5 % (2-11); Neutrophils Absolute Auto 7.9 x10*3/uL (2.0-8.3); Neutrophils Percent Auto 70.7 % (45-73); Platelet Count 279 X10*3/uL (160-400); Red Blood Count 4.65 X10*6/uL (4.20-5.50); Red Cell Distribution Width 12.7 % (11.0-16.0); White Blood Count 11.1 X10*3/uL (4.8-10.8)
== END 2023-06-22 14:46 | disposition home or self-care (01) ==
LOC: HO.HMGCLR 14:45
PROVIDERS: PCP Internal Medicine; Visit Provider Nurse Practitioner Psychiatric/Mental Health
DX: F25.0 Schizoaffective disorder, bipolar type (principal); Z79.899 Other long term (current) drug therapy
CPT/HCPCS: 36415; 85025

== ENCOUNTER 2023-07-21 14:41 | Outpatient (REF) | payer MEDICARE, MEDICAID, SELFPAY ==
[2023-07-21 16:04] LABS: MANUAL DIFF FLAG NO
[2023-07-21 16:14] LABS: Hematocrit 38.1 % (37.0-47.0); Hemoglobin 12.4 g/dl (12.0-16.0); Mean Corpuscular HGB Conc 32.5 g/dl (31.0-35.0); Mean Corpuscular Hemoglobin 26.7 pg (27.0-33.0); Mean Corpuscular Volume 82.1 fL (80.0-98.0); Platelet Count 298 X10*3/uL (160-400); Red Blood Count 4.64 X10*6/uL (4.20-5.50); Red Cell Distribution Width 13.1 % (11.0-16.0); White Blood Count 9.7 X10*3/uL (4.8-10.8)
[2023-07-21 16:15] LABS: Basophils Percent Auto 0.4 % (0-2); Eosinophils Absolute Auto 0.3 X10*3/uL (0.0-0.4); Eosinophils Percent Auto 3.1 % (0-4); Imm Gran Abs Auto 0.03 X10*3/uL (0.00-0.03); Imm Gran Pct Auto 0.3 % (0.0-0.4); Lymphocytes Absolute Auto 2.6 X10*3/uL (1.2-4.9); Lymphocytes Percent Auto 26.6 % (20-40); Mean Platelet Volume 9.6 fL (9.4-12.3); Monocytes Absolute Auto 0.5 X10*3/uL (0.1-1.2); Monocytes Percent Auto 4.7 % (2-11); Neutrophils Absolute Auto 6.3 x10*3/uL (2.0-8.3); Neutrophils Percent Auto 64.9 % (45-73)
== END 2023-07-21 14:42 | disposition home or self-care (01) ==
LOC: HO.HMGCLR 14:41
PROVIDERS: PCP Internal Medicine; Visit Provider Nurse Practitioner Psychiatric/Mental Health
DX: F25.0 Schizoaffective disorder, bipolar type (principal); Z79.899 Other long term (current) drug therapy
CPT/HCPCS: 36415; 85025

== ENCOUNTER 2023-08-26 10:40 | Outpatient (REF) | payer MEDICARE, MEDICAID, SELFPAY ==
[2023-08-26 13:05] LABS: MANUAL DIFF FLAG NO
[2023-08-26 13:21] LABS: Basophils Absolute Auto 0.1 X10*3/uL (0.0-0.2); Basophils Percent Auto 0.7 % (0-2); Eosinophils Absolute Auto 0.3 X10*3/uL (0.0-0.4); Eosinophils Percent Auto 3.9 % (0-4); Hematocrit 39.9 % (37.0-47.0); Hemoglobin 12.8 g/dl (12.0-16.0); Imm Gran Abs Auto 0.03 X10*3/uL (0.00-0.03); Imm Gran Pct Auto 0.4 % (0.0-0.4); Lymphocytes Absolute Auto 2.1 X10*3/uL (1.2-4.9); Lymphocytes Percent Auto 30.3 % (20-40); Mean Corpuscular HGB Conc 32.1 g/dl (31.0-35.0); Mean Corpuscular Hemoglobin 26.9 pg (27.0-33.0); Mean Corpuscular Volume 83.8 fL (80.0-98.0); Mean Platelet Volume 10.1 fL (9.4-12.3); Monocytes Absolute Auto 0.3 X10*3/uL (0.1-1.2); Monocytes Percent Auto 4.9 % (2-11); Neutrophils Absolute Auto 4.2 x10*3/uL (2.0-8.3); Neutrophils Percent Auto 59.8 % (45-73); Platelet Count 262 X10*3/uL (160-400); Red Blood Count 4.76 X10*6/uL (4.20-5.50); Red Cell Distribution Width 13.2 % (11.0-16.0)
== END 2023-08-26 10:41 | disposition home or self-care (01) ==
LOC: HO.HMGCLR 10:40
PROVIDERS: PCP Internal Medicine; Visit Provider Nurse Practitioner Psychiatric/Mental Health
DX: F25.0 Schizoaffective disorder, bipolar type (principal); Z79.899 Other long term (current) drug therapy
CPT/HCPCS: 36415; 85025

== ENCOUNTER 2023-09-24 10:38 | Outpatient (REF) | payer MEDICARE, MEDICAID, SELFPAY ==
[2023-09-24 13:23] LABS: MANUAL DIFF FLAG NO
[2023-09-24 13:56] LABS: Basophils Percent Auto 0.6 % (0-2); Eosinophils Absolute Auto 0.3 X10*3/uL (0.0-0.4); Hematocrit 38.8 % (37.0-47.0); Hemoglobin 12.4 g/dl (12.0-16.0); Imm Gran Abs Auto 0.02 X10*3/uL (0.00-0.03); Imm Gran Pct Auto 0.3 % (0.0-0.4); Lymphocytes Percent Auto 30.2 % (20-40); Mean Corpuscular Hemoglobin 26.9 pg (27.0-33.0); Mean Corpuscular Volume 84.2 fL (80.0-98.0); Monocytes Absolute Auto 0.3 X10*3/uL (0.1-1.2); Monocytes Percent Auto 4.7 % (2-11); Neutrophils Percent Auto 60.2 % (45-73); Platelet Count 272 X10*3/uL (160-400); Red Blood Count 4.61 X10*6/uL (4.20-5.50); Red Cell Distribution Width 13.2 % (11.0-16.0); White Blood Count 6.6 X10*3/uL (4.8-10.8)
== END 2023-09-24 10:39 | disposition home or self-care (01) ==
LOC: HO.HMGCLR 10:38
PROVIDERS: PCP Internal Medicine; Visit Provider Nurse Practitioner Psychiatric/Mental Health
DX: Z79.899 Other long term (current) drug therapy (principal); F25.0 Schizoaffective disorder, bipolar type
CPT/HCPCS: 36415; 85025

== ENCOUNTER 2023-11-08 14:54 | Outpatient (REF) | payer MEDICARE, MEDICAID, SELFPAY ==
[2023-11-08 15:12] LABS: MANUAL DIFF FLAG NO
[2023-11-08 15:29] LABS: Basophils Absolute Auto 0.1 X10*3/uL (0.0-0.2); Basophils Percent Auto 0.8 % (0-2); Eosinophils Absolute Auto 0.3 X10*3/uL (0.0-0.4); Eosinophils Percent Auto 2.9 % (0-4); Hematocrit 38.7 % (37.0-47.0); Hemoglobin 12.6 g/dl (12.0-16.0); Imm Gran Abs Auto 0.03 X10*3/uL (0.00-0.03); Imm Gran Pct Auto 0.3 % (0.0-0.4); Lymphocytes Absolute Auto 2.4 X10*3/uL (1.2-4.9); Lymphocytes Percent Auto 26.1 % (20-40); Mean Corpuscular HGB Conc 32.6 g/dl (31.0-35.0); Mean Corpuscular Hemoglobin 26.9 pg (27.0-33.0); Mean Corpuscular Volume 82.7 fL (80.0-98.0); Mean Platelet Volume 9.4 fL (9.4-12.3); Monocytes Absolute Auto 0.5 X10*3/uL (0.1-1.2); Monocytes Percent Auto 5.4 % (2-11); Neutrophils Percent Auto 64.5 % (45-73); Platelet Count 261 X10*3/uL (160-400); Red Blood Count 4.68 X10*6/uL (4.20-5.50); Red Cell Distribution Width 13.1 % (11.0-16.0); White Blood Count 9.3 X10*3/uL (4.8-10.8)
== END 2023-11-08 14:55 | disposition home or self-care (01) ==
LOC: HO.LABR 14:54
PROVIDERS: PCP Internal Medicine; Visit Provider Nurse Practitioner Psychiatric/Mental Health
DX: Z79.899 Other long term (current) drug therapy (principal); F25.0 Schizoaffective disorder, bipolar type
CPT/HCPCS: 36415; 85025

== ENCOUNTER 2023-12-09 12:08 | Outpatient (REF) | payer MEDICARE, MEDICAID, SELFPAY ==
[2023-12-09 13:07] LABS: MANUAL DIFF FLAG NO
[2023-12-09 13:12] LABS: Basophils Percent Auto 0.4 % (0-2); Eosinophils Absolute Auto 0.2 X10*3/uL (0.0-0.4); Eosinophils Percent Auto 2.6 % (0-4); Hematocrit 38.1 % (37.0-47.0); Hemoglobin 12.5 g/dl (12.0-16.0); Imm Gran Abs Auto 0.05 X10*3/uL (0.00-0.03); Imm Gran Pct Auto 0.5 % (0.0-0.4); Lymphocytes Absolute Auto 2.3 X10*3/uL (1.2-4.9); Lymphocytes Percent Auto 24.4 % (20-40); Mean Corpuscular HGB Conc 32.8 g/dl (31.0-35.0); Mean Corpuscular Hemoglobin 27.3 pg (27.0-33.0); Mean Corpuscular Volume 83.2 fL (80.0-98.0); Mean Platelet Volume 9.7 fL (9.4-12.3); Monocytes Absolute Auto 0.4 X10*3/uL (0.1-1.2); Monocytes Percent Auto 4.5 % (2-11); Neutrophils Absolute Auto 6.3 x10*3/uL (2.0-8.3); Neutrophils Percent Auto 67.6 % (45-73); Platelet Count 248 X10*3/uL (160-400); Red Blood Count 4.58 X10*6/uL (4.20-5.50); Red Cell Distribution Width 13.1 % (11.0-16.0); White Blood Count 9.3 X10*3/uL (4.8-10.8)
[2023-12-09 13:45] LABS: Alanine Aminotransferase 19 U/L (0-31); Albumin Level 4.1 g/dL (3.5-5.0); Alkaline Phosphatase 85 U/L (39-117); Anion Gap 13 (12-20); Aspartate Amino Transferase 14 U/L (5-31); Bilirubin Total 0.2 mg/dL (0.0-1.0); Blood Urea Nitrogen 9 mg/dL (9-16); Calcium 9.5 mg/dL (8.4-10.2); Carbon Dioxide 25 mmol/L (22-29); Chloride 103 mmol/L (96-108); Cholesterol 243 mg/dL (<200); Estimated Glomerular Filt Rate > 60; Glucose Fasting 333 mg/dL (60-99); HDL Cholesterol 52 mg/dL (>40); LDL Cholesterol Calculated 140 mg/dL (<100); Sodium 137 mmol/L (135-145); Total Protein 7.4 g/dL (6.5-8.0); Triglycerides 259 mg/dL (<150)
== END 2023-12-09 12:09 | disposition home or self-care (01) ==
LOC: HO.HMGCLR 12:08
PROVIDERS: PCP Internal Medicine; Visit Provider Nurse Practitioner Psychiatric/Mental Health
DX: F25.0 Schizoaffective disorder, bipolar type (principal); Z79.899 Other long term (current) drug therapy
CPT/HCPCS: 36415; 80053; 80061; 85025

== ENCOUNTER 2024-01-07 13:50 | Outpatient (REF) | payer MEDICARE, MEDICAID, SELFPAY ==
[2024-01-07 16:05] LABS: MANUAL DIFF FLAG NO
[2024-01-07 16:11] LABS: Basophils Percent Auto 0.4 % (0-2); Eosinophils Absolute Auto 0.2 X10*3/uL (0.0-0.4); Eosinophils Percent Auto 2.5 % (0-4); Hematocrit 37.9 % (37.0-47.0); Hemoglobin 12.6 g/dl (12.0-16.0); Imm Gran Abs Auto 0.03 X10*3/uL (0.00-0.03); Imm Gran Pct Auto 0.3 % (0.0-0.4); Lymphocytes Absolute Auto 2.5 X10*3/uL (1.2-4.9); Lymphocytes Percent Auto 25.8 % (20-40); Mean Corpuscular HGB Conc 33.2 g/dl (31.0-35.0); Mean Corpuscular Hemoglobin 27.5 pg (27.0-33.0); Mean Corpuscular Volume 82.8 fL (80.0-98.0); Mean Platelet Volume 9.6 fL (9.4-12.3); Monocytes Absolute Auto 0.5 X10*3/uL (0.1-1.2); Monocytes Percent Auto 5.2 % (2-11); Neutrophils Absolute Auto 6.3 x10*3/uL (2.0-8.3); Neutrophils Percent Auto 65.8 % (45-73); Platelet Count 292 X10*3/uL (160-400); Red Blood Count 4.58 X10*6/uL (4.20-5.50); Red Cell Distribution Width 13.2 % (11.0-16.0); White Blood Count 9.5 X10*3/uL (4.8-10.8)
== END 2024-01-07 13:51 | disposition home or self-care (01) ==
LOC: HO.HMGCLR 13:50
PROVIDERS: PCP Internal Medicine; Visit Provider Nurse Practitioner Psychiatric/Mental Health
DX: Z79.899 Other long term (current) drug therapy (principal); F25.0 Schizoaffective disorder, bipolar type
CPT/HCPCS: 36415; 85025

== ENCOUNTER 2024-02-09 09:09 | Outpatient (REF) | payer MEDICARE, MEDICAID, SELFPAY ==
[2024-02-09 10:14] LABS: MANUAL DIFF FLAG NO
[2024-02-09 10:22] LABS: Basophils Percent Auto 0.5 % (0-2); Eosinophils Absolute Auto 0.3 X10*3/uL (0.0-0.4); Eosinophils Percent Auto 3.5 % (0-4); Hematocrit 40.6 % (37.0-47.0); Hemoglobin 13.3 g/dl (12.0-16.0); Imm Gran Abs Auto 0.02 X10*3/uL (0.00-0.03); Imm Gran Pct Auto 0.3 % (0.0-0.4); Lymphocytes Percent Auto 26.6 % (20-40); Mean Corpuscular HGB Conc 32.8 g/dl (31.0-35.0); Mean Corpuscular Hemoglobin 27.1 pg (27.0-33.0); Mean Corpuscular Volume 82.9 fL (80.0-98.0); Mean Platelet Volume 9.5 fL (9.4-12.3); Monocytes Absolute Auto 0.3 X10*3/uL (0.1-1.2); Monocytes Percent Auto 4.5 % (2-11); Neutrophils Absolute Auto 4.9 x10*3/uL (2.0-8.3); Neutrophils Percent Auto 64.6 % (45-73); Platelet Count 275 X10*3/uL (160-400); Red Cell Distribution Width 12.9 % (11.0-16.0); White Blood Count 7.5 X10*3/uL (4.8-10.8)
[2024-02-09 10:32] LABS: Estimated Average Glucose 315 mg/dL; Hemoglobin A1C 374.3721 umol/L; Hemoglobin A1c % 12.6 % (<6.0); Total Hemoglobin (HGBA1C) 3268.9727 umol/L
[2024-02-09 11:36] LABS: Alanine Aminotransferase 20 U/L (0-31); Albumin Level 4.2 g/dL (3.5-5.0); Alkaline Phosphatase 98 U/L (39-117); Anion Gap 13 (12-20); Aspartate Amino Transferase 12 U/L (5-31); Bilirubin Total 0.3 mg/dL (0.0-1.0); Blood Urea Nitrogen 10 mg/dL (9-16); Calcium 9.6 mg/dL (8.4-10.2); Carbon Dioxide 26 mmol/L (22-29); Chloride 103 mmol/L (96-108); Cholesterol 228 mg/dL (<200); Estimated Glomerular Filt Rate > 60; HDL Cholesterol 51 mg/dL (>40); LDL Cholesterol Calculated 140 mg/dL (<100); Potassium 4.1 mmol/L (3.3-5.1); Sodium 138 mmol/L (135-145); Total Protein 7.6 g/dL (6.5-8.0); Triglycerides 186 mg/dL (<150)
[2024-02-09 11:37] LABS: TSH reflex Free T4 1.15 uIU/mL (0.32-4.0)
[2024-02-09 11:39] LABS: Glucose Fasting 370 mg/dL (60-99)
[2024-02-09 18:09] LABS: Creatinine Urine 45.68 mg/dL; Microalbum/Creatinine Ratio Ur 28.4 ug/mg cr (<30)
== END 2024-02-09 09:10 | disposition home or self-care (01) ==
LOC: HO.HMGCLR 09:09
PROVIDERS: PCP Internal Medicine; Visit Provider Nurse Practitioner Psychiatric/Mental Health
DX: Z00.00 Encounter for general adult medical examination without abnormal findings (principal); Z79.899 Other long term (current) drug therapy; F25.0 Schizoaffective disorder, bipolar type; E11.9 Type 2 diabetes mellitus without complications; I10 Essential (primary) hypertension
CPT/HCPCS: 36415; 80053; 80061; 82043; 82570; 83036; 84443; 85025

== ENCOUNTER 2024-02-28 13:28 | Outpatient (AMB) | payer MEDICARE, MEDICAID, SELFPAY ==
[2024-02-28 13:59] VITALS: BP 136/78; PULSE 91; O2SAT 97; BMI 31.9
--- NOTE | 2024-02-28 13:59 | A.OFFPC_ITS ---
Vital Signs 02/28/24 13:59 Height 5 ft 7 in Weight 204 lb BMI 31.9 BP 136/78 Blood Pressure Location Rt brachial Position Sitting Pulse 91 Pulse Source Pulse Oximeter Pulse Oximetry (%) 97 Oxygen Delivery Method Room Air Intake Visit Reasons: annual exam Intake Note: Pt is here today for PE. Allergies No Known Allergies [No Known Allergies*] Allergy (Verified 02/28/24 14:02) Medication List - Last Reconciled 02/28/24 by Maude Pandya MD alcohol swabs (Alcohol Prep Pads) 1 pad topical DIRECTED blood sugar diagnostic (OneTouch Verio test strips) Test blood sugar twice a day blood-glucose meter (ArmetheonTouch Verio Flex Meter) As directed clozapine 100 mg PO BEDTIME lancets (OneTouch Delica Plus Lancet) Test blood sugar twice a day lisinopril 20 mg PO DAILY sennosides-docusate sodium 8.6-50 mg (Senna Plus) 1 tab PO BEDTIME Tobacco use date assessed: 02/28/24 Dental Screening Dental Screen Date: 02/28/24 Did you have a dental visit in the last 12 months?: Yes Did you have a dental problem in the last 6 months where you did not have access to dental care?: No Was dental information given to patient?: Patient has dentist HPI annual exam HPI Details Patient presents for physical. She has not been compliant with ADA diet and follow-up for diabetes. Patient had diabetic teaching with nurse navigator last year but never continue to follow-up of monitor her blood glucose regularly. She reports polydipsia polydipsia but has been changing her diet in the last weeks. [facility] Medical History (Updated 02/28/24 @ 15:15 by Maude Pandya MD) Colonoscopy refused Hx of mammogram Normal pelvic exam HTN (hypertension) DM type 2 (diabetes mellitus, type 2) Annual physical exam Schizoaffective disorder, bipolar type Surgical History No pertinent past surgical history Family History Father No problems noted. Mother No problems noted. 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 1. Little interest or pleasure in doing things: not at all 2. Feeling down, depressed, or hopeless: not at all 3. Trouble falling or staying asleep, or sleeping too much: not at all 4. Feeling tired or having little energy: not at all 5. Poor appetite or overeating: not at all 6. Feeling bad about yourself - or that you are a failure or have let yourself or your family down: not at all 7. Trouble concentrating on things, such as reading the newspaper or watching t elevision: not at all 8. Moving or speaking so slowly that other people could have noticed. Or the opposite - being so fidgety or restless that you have been moving around a lot more than usual: not at all 9. Thoughts that you would be better off or of hurting yourself in some way: not at all Total score: 0 Depression Screening Interpretation: Negative Depression Screening Done: Yes 35850 - PHQ-9 Billing: Yes Source: Developed by Drs. Huan Ann, Veronica Waters, Ziyad Oliva and colleagues, with an educational sheila from [employer]. Thrive Questionnaire Date Thrive assessed: 05/13/21 I am a: Patient What is your living situation today?: I have a steady place to live Within the past 12 months, did the food you bought not last and you didn't have the money to get more?: I choose not to answer this question Within the past 12 months, did you worry whether your food would run out before you got money to buy more?: I choose not to answer this question Do you have trouble paying for medicines?: I choose not to answer this question Do you have trouble getting transportation to medical appointments?: I choose not to answer this question Do you have trouble paying your heating and electricity bill?: I choose not to answer this question Do you have trouble taking care of your child, family member or friend?: I choose not to answer this question Do you have trouble with day-to-day activities such as bathing, preparing meals, shopping, managing finances, etc.?: I choose not to answer this question Are you currently unemployed and looking for a job?: I choose not to answer this question Are you interested in more education?: I choose not to answer this question Please select the resources that you would like help with: None Currently or been in a relationship where the following occur: I choose not to answer THRIVE Score: 0 AUDIT C Alcohol Use Questionnaire (AUDIT-C) 1. How often do you have a drink containing alcohol?: Never 3. How often do you have six or more drinks on one occasion?: Never Total Score: 0 RADHA-7 AMB Questionnaire RADHA-7 Date RADHA - 7 assessed: 05/13/21 Feeling nervous, anxious, or on edge: 0 = Not at all Not being able to stop or control worryin = Not at all Worrying too much about different things: 0 = Not at all Trouble relaxin = Not at all Being so restless that it is hard to sit still: 0 = Not at all Becoming easily annoyed or irritable: 0 = Not at all Feeling afraid as if something awful might happen: 0 = Not at all Total RADHA-7 score (0-4 normal; 5-9 mild; 10-14 moderate; 15-21 severe): 0 Source: Developed by Drs. Huan Ann, Veronica Waters, Ziyad Oliva and colleagues, with an educational sheila from [employer]. Review of Systems Const All systems reviewed & are unremarkable except as noted in HPI and below ENT Reports no additional complaints Card Reports no additional complaints Resp Reports no additional complaints GI Reports no additional complaints Reports no additional complaints Physical exam (Primary Care) Vital Signs: Last Vital Signs Pulse 91 02/28/24 13:59 BP 136/78 02/28/24 13:59 Pulse Ox 97 02/28/24 13:59 Oxygen Delivery Method Room Air 02/28/24 13:59 BMI result Body Mass Index 31.9 Tobacco/Smoking Status: Tobacco use Status Tobacco use date assessed 02/28/24 02/28/24 14:06 Patient Tobacco Use Status Current someday Tobacco (2 02/28/24 14:06 years ago) e-Cigarette/Vaping Use Never Used 02/28/24 14:06 PHQ-9: PHQ-9 Score PHQ-9: Total score 0 02/28/24 14:06 Depression Screening Interpretation: Negative Thrive Assessment: Date of Thrive Assessment Date Thrive assessed 05/13/21 02/28/24 14:06 Currently or been in a relationship where the following occur: I choose not to answer Const General: no acute distress HENMT Head: Yes normal to inspection Ears: hearing grossly normal bilaterally Throat: Yes posterior oropharynx normal Resp Effort & Inspection: normal respiratory effort Auscultation: clear to auscultation bilaterally Cardio Rhythm: regular rhythm Heart sounds: S1 normal heart sound present and S2 normal heart sound present GI Inspection: Yes normal to inspection Palpation (GI): Soft to palpation Percussion: Yes normal to percussion Auscultation: normal bowel sounds Results AMB Random Glucose (hemocue) AMB Random Glucose (hemocue) 248 mg/dL Last Edit by MAVIS Laws on 02/28/24 14:34 Results Reviewed Results Reviewed: Laboratory Last Values Random Glu (Clinic) 248 mg/dL 02/28/24 14:33 Coding Level of Care Code Est Pt Prev Care 40-64y(79883) Diagnoses DM type 2 (diabetes mellitus, type 2) E11.9 Annual physical exam Z00.00 Schizoaffective disorder, bipolar type F25.0 Assessment & Plan Assessment & Plan (1) DM type 2 (diabetes mellitus, type 2): Comment: refuses meds, A1C 11.4 12/16 Code(s): E11.9 - Type 2 diabetes mellitus without complications Category: Medical Plan: A1c is 12.6, ADA diet increase physical activity discussed with the patient metformin 750 will be started. Patient will monitor her blood glucose record the readings before breakfast and 2 hours after dinner. She will follow-up in 2 weeks (2) Annual physical exam: Code(s): Z00.00 - Encounter for general adult medical examination without abnormal findings Category: Medical Plan: Well-balanced diet regular physical activity discussed with the patient she will schedule mammogram and past due accounts clerk appointment. Patient declined colonoscopy (3) Schizoaffective disorder, bipolar type: Code(s): F25.0 - Schizoaffective disorder, bipolar type Category: Medical Plan: Continue to follow-up with psychiatrist and has been taking clozapine Orders: Orders AMB Random Glucose (hemocue) Today Z13.9 - Encounter for screening, unspecified Medications: New metformin ER 750 mg PO DAILY 90 tabs 0RF Refilled blood sugar diagnostic (OneTouch Verio test strips) Test blood sugar twice a day 200 ea 3RF E11.9 - Type 2 diabetes mellitus without complications lancets (OneTouch Delica Plus Lancet) Test blood sugar twice a day 200 ea 3RF E11.9 - Type 2 diabetes mellitus without complications
== END 2024-02-28 15:17 | disposition home or self-care (01) ==
LOC: HO.HMCC 13:43
PROVIDERS: PCP Internal Medicine; Visit Provider Internal Medicine
DX: E11.9 Type 2 diabetes mellitus without complications (principal); Z00.00 Encounter for general adult medical examination without abnormal findings; F25.0 Schizoaffective disorder, bipolar type; Z13.9 Encounter for screening, unspecified

== ENCOUNTER → 2024-02-28 13:28 | Outpatient (BNVA) | payer MEDICARE, MEDICAID, SELFPAY | PROVIDERS: PCP Internal Medicine; Visit Provider Internal Medicine | DX: Z00.01 Encounter for general adult medical examination with abnormal findings (principal); E11.9 Type 2 diabetes mellitus without complications; F25.0 Schizoaffective disorder, bipolar type | CPT/HCPCS: 82948; 96127; 99396 ==

== ENCOUNTER → 2024-02-29 09:21 | Outpatient (BNVA) | payer MEDICARE, MEDICAID, SELFPAY | PROVIDERS: PCP Internal Medicine | DX: Z01.89 Encounter for other specified special examinations (principal) ==

== ENCOUNTER 2024-03-09 09:24 | Outpatient (REF) | payer MEDICARE, MEDICAID, SELFPAY ==
[2024-03-09 13:20] LABS: MANUAL DIFF FLAG NO
[2024-03-09 13:45] LABS: Basophils Absolute Auto 0.1 X10*3/uL (0.0-0.2); Basophils Percent Auto 0.6 % (0-2); Eosinophils Absolute Auto 0.2 X10*3/uL (0.0-0.4); Eosinophils Percent Auto 3.1 % (0-4); Hematocrit 40.6 % (37.0-47.0); Hemoglobin 13.1 g/dl (12.0-16.0); Imm Gran Abs Auto 0.02 X10*3/uL (0.00-0.03); Imm Gran Pct Auto 0.3 % (0.0-0.4); Lymphocytes Absolute Auto 2.2 X10*3/uL (1.2-4.9); Lymphocytes Percent Auto 28.2 % (20-40); Mean Corpuscular HGB Conc 32.3 g/dl (31.0-35.0); Mean Corpuscular Hemoglobin 27.2 pg (27.0-33.0); Mean Corpuscular Volume 84.2 fL (80.0-98.0); Monocytes Absolute Auto 0.3 X10*3/uL (0.1-1.2); Monocytes Percent Auto 4.4 % (2-11); Neutrophils Percent Auto 63.4 % (45-73); Platelet Count 284 X10*3/uL (160-400); Red Blood Count 4.82 X10*6/uL (4.20-5.50); Red Cell Distribution Width 12.8 % (11.0-16.0); White Blood Count 7.8 X10*3/uL (4.8-10.8)
== END 2024-03-09 09:25 | disposition home or self-care (01) ==
LOC: HO.HMGCLR 09:24
PROVIDERS: PCP Internal Medicine; Visit Provider Nurse Practitioner Psychiatric/Mental Health
DX: Z79.899 Other long term (current) drug therapy (principal); F25.0 Schizoaffective disorder, bipolar type
CPT/HCPCS: 36415; 85025

== ENCOUNTER 2024-04-11 09:43 | Outpatient (REF) | payer MEDICARE, MEDICAID, SELFPAY ==
[2024-04-11 13:02] LABS: MANUAL DIFF FLAG NO
[2024-04-11 13:04] LABS: Basophils Percent Auto 0.5 % (0-2); Eosinophils Absolute Auto 0.3 X10*3/uL (0.0-0.4); Eosinophils Percent Auto 3.2 % (0-4); Hematocrit 39.8 % (37.0-47.0); Hemoglobin 13.2 g/dl (12.0-16.0); Imm Gran Abs Auto 0.03 X10*3/uL (0.00-0.03); Imm Gran Pct Auto 0.4 % (0.0-0.4); Lymphocytes Absolute Auto 2.1 X10*3/uL (1.2-4.9); Mean Corpuscular HGB Conc 33.2 g/dl (31.0-35.0); Mean Corpuscular Hemoglobin 27.4 pg (27.0-33.0); Mean Corpuscular Volume 82.6 fL (80.0-98.0); Mean Platelet Volume 9.6 fL (9.4-12.3); Monocytes Absolute Auto 0.4 X10*3/uL (0.1-1.2); Monocytes Percent Auto 4.9 % (2-11); Neutrophils Absolute Auto 5.1 x10*3/uL (2.0-8.3); Platelet Count 284 X10*3/uL (160-400); Red Blood Count 4.82 X10*6/uL (4.20-5.50); White Blood Count 7.9 X10*3/uL (4.8-10.8)
== END 2024-04-11 09:44 | disposition home or self-care (01) ==
LOC: HO.HMGCLR 09:43
PROVIDERS: PCP Internal Medicine; Visit Provider Nurse Practitioner Psychiatric/Mental Health
DX: Z79.899 Other long term (current) drug therapy (principal); F25.0 Schizoaffective disorder, bipolar type
CPT/HCPCS: 36415; 85025

== ENCOUNTER 2024-05-05 11:36 | Outpatient (REF) | payer MEDICARE, MEDICAID, SELFPAY ==
[2024-05-05 12:56] LABS: MANUAL DIFF FLAG NO
[2024-05-05 13:04] LABS: Basophils Absolute Auto 0.1 X10*3/uL (0.0-0.2); Basophils Percent Auto 0.6 % (0-2); Eosinophils Absolute Auto 0.2 X10*3/uL (0.0-0.4); Eosinophils Percent Auto 2.8 % (0-4); Hematocrit 38.8 % (37.0-47.0); Hemoglobin 12.7 g/dl (12.0-16.0); Imm Gran Abs Auto 0.03 X10*3/uL (0.00-0.03); Imm Gran Pct Auto 0.4 % (0.0-0.4); Lymphocytes Absolute Auto 2.3 X10*3/uL (1.2-4.9); Lymphocytes Percent Auto 28.1 % (20-40); Mean Corpuscular HGB Conc 32.7 g/dl (31.0-35.0); Mean Corpuscular Hemoglobin 27.2 pg (27.0-33.0); Mean Corpuscular Volume 83.1 fL (80.0-98.0); Mean Platelet Volume 9.8 fL (9.4-12.3); Monocytes Absolute Auto 0.4 X10*3/uL (0.1-1.2); Monocytes Percent Auto 5.3 % (2-11); Neutrophils Absolute Auto 5.2 x10*3/uL (2.0-8.3); Neutrophils Percent Auto 62.8 % (45-73); Platelet Count 282 X10*3/uL (160-400); Red Blood Count 4.67 X10*6/uL (4.20-5.50); White Blood Count 8.3 X10*3/uL (4.8-10.8)
== END 2024-05-05 11:37 | disposition home or self-care (01) ==
LOC: HO.HMGCLR 11:36
PROVIDERS: PCP Internal Medicine; Visit Provider Nurse Practitioner Psychiatric/Mental Health
DX: Z79.899 Other long term (current) drug therapy (principal); F25.0 Schizoaffective disorder, bipolar type
CPT/HCPCS: 36415; 85025

== ENCOUNTER 2024-06-05 09:41 | Outpatient (REF) | payer MEDICARE, MEDICAID, SELFPAY ==
[2024-06-05 13:20] LABS: MANUAL DIFF FLAG NO
[2024-06-05 13:22] LABS: Basophils Absolute Auto 0.1 X10*3/uL (0.0-0.2); Basophils Percent Auto 0.6 % (0-2); Eosinophils Absolute Auto 0.3 X10*3/uL (0.0-0.4); Eosinophils Percent Auto 3.1 % (0-4); Hematocrit 39.2 % (37.0-47.0); Hemoglobin 12.8 g/dl (12.0-16.0); Imm Gran Abs Auto 0.04 X10*3/uL (0.00-0.03); Imm Gran Pct Auto 0.5 % (0.0-0.4); Lymphocytes Absolute Auto 2.4 X10*3/uL (1.2-4.9); Lymphocytes Percent Auto 27.2 % (20-40); Mean Corpuscular HGB Conc 32.7 g/dl (31.0-35.0); Mean Corpuscular Hemoglobin 27.3 pg (27.0-33.0); Mean Corpuscular Volume 83.6 fL (80.0-98.0); Mean Platelet Volume 10.1 fL (9.4-12.3); Monocytes Absolute Auto 0.5 X10*3/uL (0.1-1.2); Monocytes Percent Auto 5.2 % (2-11); Neutrophils Absolute Auto 5.5 x10*3/uL (2.0-8.3); Neutrophils Percent Auto 63.4 % (45-73); Platelet Count 274 X10*3/uL (160-400); Red Blood Count 4.69 X10*6/uL (4.20-5.50); White Blood Count 8.7 X10*3/uL (4.8-10.8)
== END 2024-06-05 09:42 | disposition home or self-care (01) ==
LOC: HO.HMGCLR 09:41
PROVIDERS: PCP Internal Medicine; Visit Provider Nurse Practitioner Psychiatric/Mental Health
DX: F25.0 Schizoaffective disorder, bipolar type (principal); Z79.899 Other long term (current) drug therapy
CPT/HCPCS: 36415; 85025

== ENCOUNTER 2024-06-29 10:49 | Outpatient (REF) | payer MEDICARE, MEDICAID, SELFPAY ==
[2024-06-29 13:32] LABS: MANUAL DIFF FLAG NO
[2024-06-29 13:37] LABS: Basophils Percent Auto 0.5 % (0-2); Eosinophils Absolute Auto 0.3 X10*3/uL (0.0-0.4); Eosinophils Percent Auto 3.4 % (0-4); Hemoglobin 12.7 g/dl (12.0-16.0); Imm Gran Abs Auto 0.02 X10*3/uL (0.00-0.03); Imm Gran Pct Auto 0.3 % (0.0-0.4); Lymphocytes Absolute Auto 2.7 X10*3/uL (1.2-4.9); Lymphocytes Percent Auto 33.3 % (20-40); Mean Corpuscular HGB Conc 32.6 g/dl (31.0-35.0); Mean Corpuscular Hemoglobin 26.9 pg (27.0-33.0); Mean Corpuscular Volume 82.6 fL (80.0-98.0); Mean Platelet Volume 9.9 fL (9.4-12.3); Monocytes Absolute Auto 0.4 X10*3/uL (0.1-1.2); Monocytes Percent Auto 4.8 % (2-11); Neutrophils Absolute Auto 4.6 x10*3/uL (2.0-8.3); Neutrophils Percent Auto 57.7 % (45-73); Platelet Count 295 X10*3/uL (160-400); Red Blood Count 4.72 X10*6/uL (4.20-5.50); Red Cell Distribution Width 12.8 % (11.0-16.0)
== END 2024-06-29 10:50 | disposition home or self-care (01) ==
LOC: HO.HMGCLR 10:49
PROVIDERS: PCP Internal Medicine; Visit Provider Nurse Practitioner Psychiatric/Mental Health
DX: F25.0 Schizoaffective disorder, bipolar type (principal); Z79.899 Other long term (current) drug therapy
CPT/HCPCS: 36415; 85025

== ENCOUNTER 2024-07-31 09:50 | Outpatient (REF) | payer MEDICARE, MEDICAID, SELFPAY ==
[2024-07-31 13:05] LABS: MANUAL DIFF FLAG NO
[2024-07-31 13:18] LABS: Basophils Absolute Auto 0.1 X10*3/uL (0.0-0.2); Basophils Percent Auto 0.6 % (0-2); Eosinophils Absolute Auto 0.2 X10*3/uL (0.0-0.4); Eosinophils Percent Auto 2.4 % (0-4); Hematocrit 40.7 % (37.0-47.0); Hemoglobin 12.9 g/dl (12.0-16.0); Imm Gran Abs Auto 0.03 X10*3/uL (0.00-0.03); Imm Gran Pct Auto 0.3 % (0.0-0.4); Lymphocytes Absolute Auto 2.2 X10*3/uL (1.2-4.9); Lymphocytes Percent Auto 25.6 % (20-40); Mean Corpuscular HGB Conc 31.7 g/dl (31.0-35.0); Mean Corpuscular Hemoglobin 26.7 pg (27.0-33.0); Mean Corpuscular Volume 84.1 fL (80.0-98.0); Mean Platelet Volume 10.1 fL (9.4-12.3); Monocytes Absolute Auto 0.4 X10*3/uL (0.1-1.2); Neutrophils Absolute Auto 5.8 x10*3/uL (2.0-8.3); Neutrophils Percent Auto 66.1 % (45-73); Platelet Count 290 X10*3/uL (160-400); Red Blood Count 4.84 X10*6/uL (4.20-5.50); Red Cell Distribution Width 13.1 % (11.0-16.0); White Blood Count 8.7 X10*3/uL (4.8-10.8)
== END 2024-07-31 09:51 | disposition home or self-care (01) ==
LOC: HO.HMGCLR 09:50
PROVIDERS: PCP Internal Medicine; Visit Provider Nurse Practitioner Psychiatric/Mental Health
DX: F25.0 Schizoaffective disorder, bipolar type (principal); Z79.899 Other long term (current) drug therapy
CPT/HCPCS: 36415; 85025

== ENCOUNTER 2024-08-30 08:46 | Outpatient (REF) | payer MEDICARE, MEDICAID, SELFPAY ==
[2024-08-30 10:10] LABS: MANUAL DIFF FLAG NO
[2024-08-30 10:16] LABS: Basophils Percent Auto 0.5 % (0-2); Eosinophils Absolute Auto 0.2 X10*3/uL (0.0-0.4); Eosinophils Percent Auto 2.9 % (0-4); Hematocrit 37.3 % (37.0-47.0); Hemoglobin 12.6 g/dl (12.0-16.0); Imm Gran Abs Auto 0.04 X10*3/uL (0.00-0.03); Imm Gran Pct Auto 0.5 % (0.0-0.4); Lymphocytes Absolute Auto 2.6 X10*3/uL (1.2-4.9); Lymphocytes Percent Auto 30.8 % (20-40); Mean Corpuscular HGB Conc 33.8 g/dl (31.0-35.0); Mean Corpuscular Hemoglobin 27.3 pg (27.0-33.0); Mean Corpuscular Volume 80.7 fL (80.0-98.0); Mean Platelet Volume 9.5 fL (9.4-12.3); Monocytes Absolute Auto 0.4 X10*3/uL (0.1-1.2); Monocytes Percent Auto 5.1 % (2-11); Neutrophils Percent Auto 60.2 % (45-73); Platelet Count 288 X10*3/uL (160-400); Red Blood Count 4.62 X10*6/uL (4.20-5.50); Red Cell Distribution Width 12.9 % (11.0-16.0); White Blood Count 8.3 X10*3/uL (4.8-10.8)
== END 2024-08-30 08:47 | disposition home or self-care (01) ==
LOC: HO.HMGCLR 08:46
PROVIDERS: PCP Internal Medicine; Visit Provider Nurse Practitioner Psychiatric/Mental Health
DX: F25.0 Schizoaffective disorder, bipolar type (principal); Z79.899 Other long term (current) drug therapy
CPT/HCPCS: 36415; 85025

== ENCOUNTER 2024-10-02 13:20 | Outpatient (REF) | payer MEDICARE, MEDICAID, SELFPAY ==
[2024-10-02 16:05] LABS: MANUAL DIFF FLAG NO
[2024-10-02 16:08] LABS: Basophils Percent Auto 0.4 % (0-2); Eosinophils Absolute Auto 0.3 X10*3/uL (0.0-0.4); Eosinophils Percent Auto 3.3 % (0-4); Hematocrit 39.7 % (37.0-47.0); Hemoglobin 12.8 g/dl (12.0-16.0); Imm Gran Abs Auto 0.04 X10*3/uL (0.00-0.03); Imm Gran Pct Auto 0.4 % (0.0-0.4); Lymphocytes Absolute Auto 2.7 X10*3/uL (1.2-4.9); Mean Corpuscular HGB Conc 32.2 g/dl (31.0-35.0); Mean Corpuscular Hemoglobin 26.8 pg (27.0-33.0); Mean Corpuscular Volume 83.1 fL (80.0-98.0); Monocytes Absolute Auto 0.5 X10*3/uL (0.1-1.2); Monocytes Percent Auto 5.9 % (2-11); Neutrophils Absolute Auto 5.6 x10*3/uL (2.0-8.3); Platelet Count 300 X10*3/uL (160-400); Red Blood Count 4.78 X10*6/uL (4.20-5.50); Red Cell Distribution Width 13.2 % (11.0-16.0); White Blood Count 9.2 X10*3/uL (4.8-10.8)
== END 2024-10-02 13:21 | disposition home or self-care (01) ==
LOC: HO.HMGCLR 13:20
PROVIDERS: PCP Internal Medicine; Visit Provider Nurse Practitioner Psychiatric/Mental Health
DX: F25.0 Schizoaffective disorder, bipolar type (principal); Z79.899 Other long term (current) drug therapy
CPT/HCPCS: 36415; 85025

== ENCOUNTER 2024-11-27 07:40 | Outpatient (REF) | payer MEDICARE, MEDICAID, SELFPAY ==
[2024-11-27 10:51] LABS: MANUAL DIFF FLAG NO
[2024-11-27 11:01] LABS: Hematocrit 38.9 % (37.0-47.0); Hemoglobin 12.7 g/dl (12.0-16.0); Imm Gran Abs Auto 0.03 X10*3/uL (0.00-0.03); Imm Gran Pct Auto 0.3 % (0.0-0.4); Lymphocytes Absolute Auto 2.7 X10*3/uL (1.2-4.9); Mean Corpuscular HGB Conc 32.6 g/dl (31.0-35.0); Mean Corpuscular Hemoglobin 27.4 pg (27.0-33.0); Mean Corpuscular Volume 84.0 fL (80.0-98.0); NRBC Abs Auto 0.000 X10*3/uL (0.0-0.012); NRBC Pct Auto 0.0 /100WBC (0.0-0.2); Platelet Count 302 X10*3/uL (160-400); Red Blood Count 4.63 X10*6/uL (4.20-5.50); White Blood Count 10.4 X10*3/uL (4.8-10.8)
== END 2024-11-27 07:41 | disposition home or self-care (01) ==
LOC: HO.HMGCLR 07:40
PROVIDERS: PCP Internal Medicine; Visit Provider Nurse Practitioner Psychiatric/Mental Health
DX: F25.0 Schizoaffective disorder, bipolar type (principal); Z79.899 Other long term (current) drug therapy
CPT/HCPCS: 36415; 85025

== ENCOUNTER 2025-02-01 14:34 | Outpatient (REF) | payer MEDICARE, MEDICAID, SELFPAY ==
[2025-02-01 16:49] LABS: MANUAL DIFF FLAG NO
[2025-02-01 16:52] LABS: Hematocrit 39.9 % (37.0-47.0); Hemoglobin 13.1 g/dl (12.0-16.0); Imm Gran Abs Auto 0.04 X10*3/uL (0.00-0.03); Imm Gran Pct Auto 0.3 % (0.0-0.4); Lymphocytes Absolute Auto 3.3 X10*3/uL (1.2-4.9); Mean Corpuscular HGB Conc 32.8 g/dl (31.0-35.0); Mean Corpuscular Hemoglobin 27.5 pg (27.0-33.0); Mean Corpuscular Volume 83.8 fL (80.0-98.0); NRBC Abs Auto 0.000 X10*3/uL (0.0-0.012); NRBC Pct Auto 0.0 /100WBC (0.0-0.2); Platelet Count 305 X10*3/uL (160-400); Red Blood Count 4.76 X10*6/uL (4.20-5.50); White Blood Count 11.7 X10*3/uL (4.8-10.8)
== END 2025-02-01 14:35 | disposition home or self-care (01) ==
LOC: HO.HMGCLR 14:34
PROVIDERS: PCP Internal Medicine; Visit Provider Nurse Practitioner Psychiatric/Mental Health
DX: F25.0 Schizoaffective disorder, bipolar type (principal); Z79.899 Other long term (current) drug therapy
CPT/HCPCS: 36415; 85025

== ENCOUNTER 2025-04-07 10:41 | Outpatient (REF) | payer MEDICARE, MEDICAID, SELFPAY ==
--- OUTSIDE RECORDS SUMMARY | 2025-04-07 10:47 | XMS_ITS | Clinical Summary ---
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 Not on peng e 08/21/2022 Are you concerned about learning? Not on file 08/21/2022 No 08/21/2022 No 08/21/2022 Digital Access Answer Date Recorded No 09/19/2022 No 09/19/2022 No 09/19/2022 Reliable internet access at home? Not on file 09/19/2022 Device with a working camera? Not on file Comments Unknown Sex and Gender Information Value Date Recorded Sex Assigned at Not on file Legal Sex Female 10:25 AM EST Gender Identity Not on file Sexual Orientation Not on file Plan of Treatment Health Maintenance Due Date Last Done Comments LIPID PANEL 1966 DEPRESSION SCREENING 1978 SMOKING Hx and SMOKELESS TOBACCO SCREENING 10/22/1979 HEPATITIS C SCREENING 1984 HIV ONE-TIME SCREENING (18-6 5 YEARS) 1984 PAP SMEAR 10/22/1987 MAMMOGRAM 2006 COLOGUARD 10/22/2011 COLONOSCOPY 10/22/2011 COLORECTAL CANCER SCREENING 10/22/2011 FIT TEST 10/22/2011 FOBT 10/22/2011 SIGMOIDOSCOPY 10/22/2011 VIRTUAL COLONOSCOPY 10/22/2011 PNEUMOCOCCAL VACCINES (50+ years) (1 of 1 - PCV) 2016 ZOSTER VACCINES (1 of 2) 2016 INFLUENZA VACCINE (#1) 2024 COVID-19 VACCINE (3 - 2024-2 6 season) 2024 04/23/2021, 03/25/2021 Adult Td,Tdap Booster 03/29/2025 03/29/2015 RSV VACCINE (1 - 1-dose 75+ series) 2041 HEPATITIS A VACCINES Aged Out No long er eligible based on patient's age to complete this topic HIB VACCINES Aged Out No longer eligi ble based on patient's age to complete this topic MENINGOCOCCAL VACCINES (ACWY) Aged Out No longer eligible based on patient's age to complete this topic MENINGOCOCCAL VACCINES (B) Aged Out N o longer eligible based on patient's age to complete this topic Medical Devices Not on file Insurance [facility] MEDICARE REPLACEMENT [place] [id number] [facility] MED[facility] REPLACEMENT [place] [id number] [facility] MEDIC[facility] REPLACEMENT [facility] MED[facility] REPLACEMENT [facility] MED[facility] REPLACEMENT [facility] MED[facility]PLACEMENT [facility] MEDIC[facility] REPLACEMENT [facility] MEDICARE REPLACEMENT ([place]) [id number] [place] [address] [facility] ONE CARE MEDICARE REPLACEMENT [employer] [facility] Care Teams Cover Mat Machine Operator Relationship Specialty Start Date End Date Lakeshia Acharya MD [address] [place] [id number] PCP - General Internal Medicine 06/15/18 Additional Source Comments The information contained in this document represents components of the legal health record. It is not the complete legal health record.[facility]
[2025-04-07 13:39] LABS: MANUAL DIFF FLAG NO
[2025-04-07 13:51] LABS: Hematocrit 37.9 % (37.0-47.0); Hemoglobin 12.5 g/dl (12.0-16.0); Imm Gran Abs Auto 0.04 X10*3/uL (0.00-0.03); Imm Gran Pct Auto 0.5 % (0.0-0.4); Lymphocytes Absolute Auto 2.6 X10*3/uL (1.2-4.9); Mean Corpuscular HGB Conc 33.0 g/dl (31.0-35.0); Mean Corpuscular Hemoglobin 27.4 pg (27.0-33.0); Mean Corpuscular Volume 83.1 fL (80.0-98.0); NRBC Abs Auto 0.000 X10*3/uL (0.0-0.012); NRBC Pct Auto 0.0 /100WBC (0.0-0.2); Platelet Count 295 X10*3/uL (160-400); Red Blood Count 4.56 X10*6/uL (4.20-5.50); White Blood Count 8.1 X10*3/uL (4.8-10.8)
== END 2025-04-07 10:42 | disposition home or self-care (01) ==
LOC: HO.HMGCLDS 10:41
PROVIDERS: Nurse Practitioner Psychiatric/Mental Health; PCP Internal Medicine; Visit Provider Internal Medicine
DX: F25.0 Schizoaffective disorder, bipolar type (principal); Z79.899 Other long term (current) drug therapy
CPT/HCPCS: 36415; 85025